=== PATIENT | female | born 1970 | race Two or more races ===

== ENCOUNTER 2020-10-21 12:56 | Outpatient (REF) | payer OTHER, SELFPAY | END 2020-10-21 12:57 | disposition home or self-care (01) | LOC: HO.LAB 12:56 | PROVIDERS: Visit Provider Internal Medicine | DX: Z20.828 Contact with and (suspected) exposure to other viral communicable diseases (principal) | CPT/HCPCS: C9803; U0003 ==

== ENCOUNTER 2021-07-15 12:26 | Outpatient (REF) | payer OTHER, SELFPAY | END 2021-07-15 12:27 | disposition home or self-care (01) | LOC: HO.LAB 12:26 | PROVIDERS: Visit Provider Internal Medicine | DX: Z20.822 Contact with and (suspected) exposure to COVID-19 (principal) | CPT/HCPCS: C9803; U0003; U0005 ==

== ENCOUNTER 2021-11-17 15:04 | Outpatient (REF) | payer OTHER, SELFPAY ==
--- NOTE | ~2021-11-17 | MM_ITS ---
EXAMINATION: MM SCREENING DIGITAL BREAST TOMOSYNTHESIS, BILATERAL CLINICAL INFORMATION: Screening. Asymptomatic. The lifetime risk of breast cancer based on the Tyrer-Cuzick Model is 6%. COMPARISON: Mammography: 08/24/2017, 12/29/2016, 10/07/2015 TECHNIQUE: Digital breast tomosynthesis is performed in both the craniocaudal and mediolateral oblique views along with computer-aided detection (CAD). Synthesized 2D images are generated from the tomosynthesis. FINDINGS: There are scattered areas of fibroglandular density (ACR BI-RADS breast composition Category b). There are no significant masses, abnormal calcifications, or other abnormalities. Without developing density. No architectural abnormality. The axilla and skin contours are unremarkable. MM/MM tomosynthesis screening BI IMPRESSION: No mammographic evidence of malignancy. ASSESSMENT: BI-RADS 1: Negative RECOMMENDATION: Routine annual mammography screening. This patient's information was entered into a reminder system with a target due date for their next mammogram.
== END 2021-11-17 15:05 | disposition home or self-care (01) ==
LOC: HO.MAMMO 15:04
PROVIDERS: Visit Provider Nurse Practitioner Family
DX: Z12.31 Encounter for screening mammogram for malignant neoplasm of breast (principal)
CPT/HCPCS: 77063; 77067

== ENCOUNTER 2021-12-22 11:16 | Outpatient (REF) | payer OTHER, SELFPAY ==
[2021-12-22 11:30] LABS: MANUAL DIFF FLAG NO
[2021-12-22 11:43] LABS: Basophils Percent Auto 0.4 % (0-2); Eosinophils Absolute Auto 0.3 X10*3/uL (0.0-0.4); Eosinophils Percent Auto 2.7 % (0-4); Hematocrit 36.6 % (37.0-47.0); Hemoglobin 11.8 g/dl (12.0-16.0); Imm Gran Abs Auto 0.03 X10*3/uL (0.00-0.03); Imm Gran Pct Auto 0.3 % (0.0-0.4); Lymphocytes Absolute Auto 2.8 X10*3/uL (1.2-4.9); Lymphocytes Percent Auto 30.2 % (20-40); Mean Corpuscular HGB Conc 32.2 g/dl (31.0-35.0); Mean Corpuscular Hemoglobin 27.7 pg (27.0-33.0); Mean Corpuscular Volume 85.9 fL (80.0-98.0); Monocytes Absolute Auto 0.9 X10*3/uL (0.1-1.2); Monocytes Percent Auto 9.3 % (2-11); Neutrophils Absolute Auto 5.3 x10*3/uL (2.0-8.3); Neutrophils Percent Auto 57.1 % (45-73); Platelet Count 258 X10*3/uL (160-400); Red Blood Count 4.26 X10*6/uL (4.20-5.50); Red Cell Distribution Width 13.6 % (11.0-16.0); White Blood Count 9.3 X10*3/uL (4.8-10.8)
[2021-12-22 12:21] LABS: Alanine Aminotransferase 12 U/L (0-31); Albumin Level 3.9 g/dL (3.5-5.0); Alkaline Phosphatase 59 U/L (39-117); Anion Gap 10 (12-20); Aspartate Amino Transferase 13 U/L (5-31); Bilirubin Total 0.7 mg/dL (0.0-1.0); Blood Urea Nitrogen 10 mg/dL (9-16); Carbon Dioxide 27 mmol/L (22-29); Chloride 105 mmol/L (96-108); Cholesterol 216 mg/dL; Estimated Glomerular Filt Rate > 60; Glucose Fasting 104 mg/dL (60-99); HDL Cholesterol 37 mg/dL; LDL Cholesterol Calculated 149 mg/dl; Potassium 4.4 mmol/L (3.3-5.1); Sodium 138 mmol/L (135-145); Total Protein 6.8 g/dL (6.5-8.0); Triglycerides 153 mg/dL
[2021-12-22 12:30] LABS: TSH reflex Free T4 1.65 uIU/mL (0.32-4.0)
== END 2021-12-22 11:17 | disposition home or self-care (01) ==
LOC: HO.LAB 11:16
PROVIDERS: PCP Nurse Practitioner Family; Visit Provider Nurse Practitioner Family
DX: I10 Essential (primary) hypertension (principal); E78.00 Pure hypercholesterolemia, unspecified; Z76.89 Persons encountering health services in other specified circumstances
CPT/HCPCS: 36415; 80053; 80061; 84443; 85025

== ENCOUNTER 2022-02-10 08:45 | Outpatient (REF) | payer OTHER, SELFPAY ==
--- NOTE | 2022-02-10 08:49 | EMG_ITS ---
Bilateral median and ulnar motor and sensory studies were performed. Bilateral radial sensory studies were performed and paraspinal muscles were tested. IMPRESSION: Mild to moderate bilateral median neuropathy across carpal tunnel. MD FELICE Nguyen/VANDANA / [id number]
== END 2022-02-10 08:46 | disposition home or self-care (01) ==
LOC: HO.NEURO 08:45
PROVIDERS: Visit Provider Nurse Practitioner Family
DX: M79.641 Pain in right hand (principal); M79.642 Pain in left hand; M79.89 Other specified soft tissue disorders
CPT/HCPCS: 95886; 95911

== ENCOUNTER 2022-03-17 13:46 | Outpatient (REF) | payer OTHER, SELFPAY ==
[2022-03-18 06:47] LABS: CT PCR NOT DETECTED (Not Detect.); NG PCR NOT DETECTED (Not Detect.)
[2022-03-21 11:16] LABS: HPV mRNA E6/E7 rflx Not Detected (Not Detected)
== END 2022-03-17 13:47 | disposition home or self-care (01) ==
LOC: HO.LAB 13:46
PROVIDERS: Visit Provider Advanced Practice Midwife
DX: Z01.419 Encounter for gynecological examination (general) (routine) without abnormal findings (principal); Z11.51 Encounter for screening for human papillomavirus (HPV); Z20.2 Contact with and (suspected) exposure to infections with a predominantly sexual mode of transmission
CPT/HCPCS: 87491; 87591; 87624; 88142

== ENCOUNTER 2022-05-06 11:07 | Day surgery (SDC) | payer OTHER, SELFPAY ==
--- NOTE | 2022-05-05 12:04 | HO.ANESPROP2 ---
Documented by User: Tamera Geller NP 05/05/22 12:06 HPI - Anesthesia Eval Consult details Narrative: 51yo F for Colonoscopy PMFSH Active Problems Active Problems: All Active Problems (Updated 03/17/22 @ 14:18 by Feliciano Clement) Encounter for annual routine gynecological examination (Acute) Neuropathy, median nerve (Acute) External hemorrhoids (Acute) Bilateral hand pain (Acute) Bilateral hand swelling (Acute) Cervical cancer screening (Acute) Encounter for screening colonoscopy (Acute) Encounter to establish care (Acute) Family History Family History Paternal Grandmother Esophageal cancer Surgical History Surgical History Hx of section Hx of tubal ligation Social History Social History Housing: House Patient Tobacco Use Status: Former Tobacco user Tobacco use type: Cigarette e-Cigarette/Vaping Use: Never Used Second Hand Smoke Exposure: No Are you DNR?: No Advance Directives: No Advance Directives Information Provided: Yes Nutrition Risks: No Nutritional Risk service: No Current occupational status: employed Meds Allergies Allergy/AdvReac Type Severity Reaction Status Date / Time No Known Allergies Allergy Verified 03/17/22 13:56 Home Medications Medication Instructions Recorded Confirmed Last Taken Type No Known Home Meds 11/04/21 11/04/21 Unknown History Exam Exam Date and Time: May 05, 2022 1204 Pertinent Lab Results Pertinent Lab Results: Laboratory Tests 12/22/21 12/22/21 11:28 11:28 WBC 9.3 Hgb 11.8 L Hct 36.6 L Plt Count 258 Sodium 138 Potassium 4.4 Chloride 105 Carbon Dioxide 27 BUN 10 Creatinine 0.71 Assessment and Plan Assessment Anesthesia Assessment: Chart Reviewed Documented by User: Sarbjit Brody MD 05/06/22 11:46 PMFSH Family History Family History Paternal Grandmother Esophageal cancer Family history of problems with anesthesia: No Surgical History Surgical History Hx of section Hx of tubal ligation History of Problems with Anesthesia: No Social History Social History Housing: House Patient Tobacco Use Status: Former Tobacco user Tobacco use type: Cigarette e-Cigarette/Vaping Use: Never Used Second Hand Smoke Exposure: No Are you DNR?: No Advance Directives: No Advance Directives Information Provided: Yes Nutrition Risks: No Nutritional Risk service: No Current occupational status: employed Meds Allergies Allergy/AdvReac Type Severity Reaction Status Date / Time No Known Allergies Allergy Verified 03/17/22 13:56 Home Medications Medication Instructions Recorded Confirmed Last Taken Type No Known Home Meds 11/04/21 11/04/21 Unknown History Exam Airway Mallampati Class: II TM Dist: >3cm Neck ROM: Full Assessment and Plan Assessment Anesthesia Assessment: Anesthesia Plan Discussed Final Anesthetic Review Family History of Problems with Anesthesia: No History of Problems with Anesthesia: No NPO: Yes ASA Class: II Final Preanesthetic Review: No Changes in Pt Med Stat, Meds/Allgs Chart Reviewed, Consent Obtained/Reviewed and Anes Risks/Benef Reviewed Patient Risk: Low Procedure Risk: Low Anesthetic Plan Anesthetic Plan: MAC: Disposition: Standard PACU
[2022-05-06 11:19] VITALS: BP 155/92; PULSE 110; RESP 19; TEMP 36.3; O2SAT 98
[2022-05-06] MEDS: Lactated Ringers 1,000 ML 100 ML IVCONT (11:44)
--- NOTE | 2022-05-06 12:55 | MHC.SHP ---
Pre-Procedural Eval Section A Date of Service: 05/06/22 The patient is an INPATIENT: No Changes since office visit: No Cold of Flu in the past 2 weeks, No New Medical Problems, No Changes in Medication and No Patient answered all questions The History & Physical has been completed within 30 days and I have reviewed it.: Yes Section B Chief Complaint: Hemorrhage of anus and rectum Allergies: Allergies Allergy/AdvReac Type Severity Reaction Status Date / Time No Known Allergies Allergy Verified 03/17/22 13:56 Plan I have reviewed the history and physical and performed a pertinent physical examination on my patient. No changes have occurred unless specified.
[2022-05-06 13:20] VITALS: BP 107/71; PULSE 89; RESP 16; TEMP 36.6; O2SAT 99
[2022-05-06 13:35] VITALS: BP 128/83; PULSE 86; RESP 18; TEMP 36.7; O2SAT 99
--- NOTE | 2022-05-07 01:00 | OP_ITS ---
SURGEON: Mynor Farias MD INDICATIONS: Rectal bleeding. PREOPERATIVE DIAGNOSIS: POSTOPERATIVE DIAGNOSIS: PROCEDURE PERFORMED: Colonoscopy to the terminal ileum. ESTIMATED BLOOD LOSS: COMPLICATIONS: ANESTHESIA: ASSISTANTS: SPECIMENS: MEDICATIONS: Monitored anesthesia care. DESCRIPTION OF PROCEDURE: History and physical performed. The risks and benefits of the procedure were explained to the patient. Informed consent was obtained. The patient was placed in the left lateral decubitus position. A digital rectal exam was performed and was found to be normal. The Olympus pediatric video colonoscope was introduced into the rectum and advanced to the cecum without difficulty. The cecum was identified by transillumination, palpation, and identification of ileocecal valve. Examination was performed. The scope was removed. She tolerated the procedure well and was taken to recovery in stable condition. FINDINGS: The terminal ileum was examined and appeared normal. The visualized colonic mucosa was normal. The quality of the prep was good. No polyps were identified. There was no evidence of colitis or diverticular disease. Retroflexed examination showed some small internal hemorrhoids, moderately large external hemorrhoids were noted on withdrawal of the colonoscope. IMPRESSION: Normal colonoscopy. RECOMMENDATIONS: 1. Follow up as needed. 2. Repeat colonoscopy is recommended in 10 years for average risk individuals. MD CHARLOTTE Jordan/VANDANA / [id number]
== END 2022-05-06 13:44 | disposition home or self-care (01) ==
PROVIDERS: Visit Provider Internal Medicine Gastroenterology
PROC: 0DJD8ZZ Inspection of Lower Intestinal Tract, Via Natural or Artificial Opening Endoscopic (ICD-10-PCS; CPT 45378; principal; 2022-05-06 12:20)
DX: K62.5 Hemorrhage of anus and rectum (principal); K64.8 Other hemorrhoids; K64.4 Residual hemorrhoidal skin tags; Z80.0 Family history of malignant neoplasm of digestive organs; Z98.51 Tubal ligation status; Z87.891 Personal history of nicotine dependence
CPT/HCPCS: 45378

== ENCOUNTER 2022-05-18 10:22 | Outpatient (REF) | payer OTHER, SELFPAY ==
--- NOTE | ~2022-05-18 | XR_ITS ---
EXAMINATION: XR lumbar spine 2-3V CLINICAL INFORMATION: Reason for Exam M54.50 - Low back pain, unspecified COMPARISON: Lumbar spine radiographs 07/26/2018 TECHNIQUE: 3 views of the lumbar spine FINDINGS: 5 nonrib-bearing lumbar-type vertebral bodies. Vertebral body heights are maintained. Alignment is maintained. Mild multilevel degenerative disc disease with minimal loss of disc space height, degenerative endplate spurring and L5-S1 facet arthropathy similar to prior. Paravertebral soft tissues are unremarkable. XR/XR lumbar spine 2-3V IMPRESSION: * Mild spondylosis of the lumbar spine, as above detailed.
--- NOTE | ~2022-05-18 | XR_ITS ---
EXAMINATION: XR KNEE, RIGHT CLINICAL INFORMATION: Pain COMPARISON: None TECHNIQUE: Four views of the right knee. FINDINGS: No acute fracture or dislocation. Mild degenerative changes of the knee with quadriceps and Achilles tendon enthesopathy, spurring of the tibial spines and small patellofemoral osteophytes. Soft tissues are unremarkable. No joint effusion. XR/XR knee RT 3V IMPRESSION: Mild degenerative changes of the knee.
== END 2022-05-18 10:23 | disposition home or self-care (01) ==
LOC: HO.XRAY 10:22
PROVIDERS: Visit Provider Nurse Practitioner Family
DX: M25.561 Pain in right knee (principal); M54.50 Low back pain, unspecified
CPT/HCPCS: 72100; 73562

== ENCOUNTER 2022-06-09 07:50 | Outpatient (RCR) | payer OTHER, SELFPAY ==
--- NOTE | 2022-06-09 14:55 | MHC.PT.EP ---
[facility] [place] [facility] [place] [facility] [place] Office [address] [phone] F: [phone] F: [phone] F: [phone] F: [phone] Physical Therapy Plan of Care Date of Evaluation: Date of Surgery: NA Diagnosis: LOW BACK PAIN (KP) Assessment: ROSE IS A PLEASANT 51 YO FEMALE WHO PRESENTS WITH INTERMITTENT EPISODIC LOW BACK PAIN. UPON EXAM IMPAIRMENTS INCLUDE DECREASED LE STRENTGTH, DECREASED HIP MOBILITY, ALTERED POSTURE AND POSTITIONING, DECREASED TRUNK AND PELVIC MOBILITY WITH GAIT, INCREASED PAIN. FUNCTIONAL LIMITATIONS INCLUDE DECREASED ABILITY TO PERFORM WORK TASKS AND SLEF CARE TASKS, DECREAED ABILITY TO PERFORM HOMEMAKING TASKS. SHE REPORTS DECREASED PARTICIPATION IN COMMUNITY ACTIVITY AND DISRUPTED SLEEP. Frequency and Duration: The patient will be seen 1 X WEEK FOR 4 WEEKS Short Term Goals: INITIATE HEP AND EDUC IN APPROPRIATE BODY MECHANICS FOR PATIENT TRANSFERS AND LIFTING Care Home Goals: INDEPENDENT HEP TO PERFORM APPROPRIATE BODY MECHANICS WITH SIMULATED PATIENT TRANSFERS AND FLOOR TO WAIST LIFTING UP Treatment Plan: Modalities to reduce pain, spasms and effusion. Manual therapy to restore motion and function. Therapeutic exercise to improve strength and flexibility. Neuromuscular re-education for posture and balance. Therapeutic activities to return to functional activities of daily living. Electronically signed by: GULSHAN WOODY PT, DPT Please sign and return to therapist. Thank you for your referral.
== END 2022-07-01 15:24 | disposition home or self-care (01) ==
LOC: HO.PT 07:50
PROVIDERS: PCP Nurse Practitioner Family; Visit Provider Nurse Practitioner Family
DX: M54.50 Low back pain, unspecified (principal); M25.561 Pain in right knee
CPT/HCPCS: 97110; 97161

== ENCOUNTER → 2022-07-14 12:38 | Outpatient (BNVA) | payer OTHER, SELFPAY | PROVIDERS: PCP Nurse Practitioner Family; Visit Provider Dietitian, Registered | DX: E66.9 Obesity, unspecified (principal); Z68.38 Body mass index [BMI] 38.0-38.9, adult | CPT/HCPCS: 97802 ==

== ENCOUNTER 2022-11-23 15:03 | Outpatient (REF) | payer OTHER, SELFPAY ==
--- NOTE | ~2022-11-23 | MM_ITS ---
EXAMINATION: MM SCREENING DIGITAL BREAST TOMOSYNTHESIS, BILATERAL CLINICAL INFORMATION: Screening. Asymptomatic. The lifetime risk of breast cancer based on the Tyrer-Cuzick Model is 6%. COMPARISON: Mammography: 11/17/2021, 08/24/2017, 12/29/2016 TECHNIQUE: Digital breast tomosynthesis is performed in both the craniocaudal and mediolateral oblique views along with computer-aided detection (CAD). Synthesized 2D images are generated from the tomosynthesis. FINDINGS: There are scattered areas of fibroglandular density (ACR BI-RADS breast composition Category b). There are no significant masses, abnormal calcifications, or other abnormalities. Breast tissue composition borders on predominantly fatty. No developing density or architectural abnormality. The axilla and skin contours are unremarkable. MM/MM tomosynthesis screening BI IMPRESSION: No mammographic evidence of malignancy. ASSESSMENT: BI-RADS 1: Negative RECOMMENDATION: Routine annual mammography screening. This patient's information was entered into a reminder system with a target due date for their next mammogram.
== END 2022-11-23 15:04 | disposition home or self-care (01) ==
LOC: HO.MAMMO 15:03
PROVIDERS: PCP Nurse Practitioner Family; Visit Provider Nurse Practitioner Family
DX: Z12.31 Encounter for screening mammogram for malignant neoplasm of breast (principal)
CPT/HCPCS: 77063; 77067

== ENCOUNTER 2023-01-12 10:54 | Outpatient (REF) | payer OTHER, SELFPAY ==
--- NOTE | ~2023-01-12 | XR_ITS ---
EXAMINATION: XR SHOULDER, RIGHT CLINICAL INFORMATION: Right shoulder pain COMPARISON: None available. TECHNIQUE: Four views of the right shoulder. FINDINGS: Glenohumeral alignment is anatomic. No acute fracture is seen. The acromioclavicular joint is intact with moderate degenerative change. XR/XR shoulder RT min 2V IMPRESSION: No acute findings. Moderate degenerative change of the acromioclavicular joint.
--- NOTE | 2023-01-12 11:02 | ECG_ITS ---
Test Reason : palpitations Blood Pressure : / mmHG Vent. Rate : 074 BPM Atrial Rate : 074 BPM P-R Int : 184 ms QRS Dur : 086 ms QT Int : 384 ms P-R-T Axes : 043 -27 010 degrees QTc Int : 426 ms Normal sinus rhythm Normal ECG When compared with ECG of 04-MAY-2020 11:40, No significant change was found Referred By: Isabella Hall Electronically Signed By:Tha Herndon
[2023-01-12 11:18] LABS: MANUAL DIFF FLAG NO
[2023-01-12 12:15] LABS: Basophils Absolute Auto 0.1 X10*3/uL (0.0-0.2); Basophils Percent Auto 0.6 % (0-2); Eosinophils Absolute Auto 0.2 X10*3/uL (0.0-0.4); Eosinophils Percent Auto 1.8 % (0-4); Hematocrit 38.7 % (37.0-47.0); Hemoglobin 12.7 g/dl (12.0-16.0); Imm Gran Abs Auto 0.02 X10*3/uL (0.00-0.03); Imm Gran Pct Auto 0.2 % (0.0-0.4); Lymphocytes Absolute Auto 2.7 X10*3/uL (1.2-4.9); Lymphocytes Percent Auto 33.2 % (20-40); Mean Corpuscular HGB Conc 32.8 g/dl (31.0-35.0); Mean Corpuscular Hemoglobin 28.2 pg (27.0-33.0); Mean Corpuscular Volume 85.8 fL (80.0-98.0); Mean Platelet Volume 11.7 fL (9.4-12.3); Monocytes Absolute Auto 0.8 X10*3/uL (0.1-1.2); Monocytes Percent Auto 9.2 % (2-11); Neutrophils Absolute Auto 4.5 x10*3/uL (2.0-8.3); Platelet Count 226 X10*3/uL (160-400); Red Blood Count 4.51 X10*6/uL (4.20-5.50); Red Cell Distribution Width 13.6 % (11.0-16.0); White Blood Count 8.2 X10*3/uL (4.8-10.8)
[2023-01-12 12:52] LABS: Alanine Aminotransferase 15 U/L (0-31); Albumin Level 4.1 g/dL (3.5-5.0); Alkaline Phosphatase 63 U/L (39-117); Anion Gap 11 (12-20); Aspartate Amino Transferase 17 U/L (5-31); Bilirubin Total 0.5 mg/dL (0.0-1.0); Blood Urea Nitrogen 12 mg/dL (9-16); Calcium 8.7 mg/dL (8.4-10.2); Carbon Dioxide 25 mmol/L (22-29); Chloride 107 mmol/L (96-108); Cholesterol 238 mg/dL; Estimated Glomerular Filt Rate > 60; Glucose Fasting 96 mg/dL (60-99); HDL Cholesterol 44 mg/dL; LDL Cholesterol Calculated 173 mg/dl; Potassium 4.3 mmol/L (3.3-5.1); Sodium 139 mmol/L (135-145); Total Protein 6.9 g/dL (6.5-8.0); Triglycerides 108 mg/dL
[2023-01-12 13:24] LABS: Folate 15.5 ng/mL (> or = 4.0); TSH reflex Free T4 2.85 uIU/mL (0.32-4.0); Vitamin B12 404 pg/mL (200-900); Vitamin D 25-OH Total 14.9 ng/mL (>30)
== END 2023-01-12 10:55 | disposition home or self-care (01) ==
LOC: HO.LAB 10:54
PROVIDERS: PCP Nurse Practitioner Family; Visit Provider Nurse Practitioner Family
DX: Z00.00 Encounter for general adult medical examination without abnormal findings (principal); R00.2 Palpitations; M25.511 Pain in right shoulder
CPT/HCPCS: 36415; 73030; 80053; 80061; 82306; 82607; 82746; 84443; 85025; 93005

== ENCOUNTER 2023-09-04 14:52 | Outpatient (AMB) | payer OTHER, SELFPAY ==
--- NOTE | 2023-09-04 14:55 | MHC.PC.OV ---
Vital Signs 09/04/23 14:57 Height 5 ft 2 in Weight 194 lb 6 oz BMI 35.5 BP 122/68 Blood Pressure Location Rt brachial Position Sitting Pulse 92 Pulse Source Pulse Oximeter Pulse Oximetry (%) 98 Oxygen Delivery Method Room Air Intake Visit Reasons: Swapna/Terry/08/03 Intake Note: Patient is here to follow-up after a visit the emergency department at [facility] on 08/03/23 Digital Art Director Required: Yes Digital Art Director Language: Singaporean Diesel Engineer: Not Required per policy Accompanied by: Self / Same As Patient Allergies No Known Allergies Allergy (Verified 09/04/23 15:08) Medication List - Last Reconciled 09/04/23 by Darius Rodriguez PA-C cholecalciferol (vitamin D3) 50 mcg PO DAILY ibuprofen 600 mg PO TID PRN Tobacco use date assessed: 09/04/23 Dental Screening Dental Screen Date: 09/04/23 Did you have a dental visit in the last 12 months?: Yes Did you have a dental problem in the last 6 months where you did not have access to dental care?: No Was dental information given to patient?: Patient has dentist HPI [facility]/Terry/08/03 HPI Details Patient is a 52-year-old Singaporean-speaking female here today for an ER visit follow-up. She reports she was having chest pain and was evaluated at the ER with blood work and an EKG and reports all were negative. She attributes these symptoms to her anxiety to which she is seeing a mental health therapist for. She was told to follow-up with her PCP about medication for her anxiety. She has tried hydroxyzine in the past which has not been effective for her. She still battles with anxiety. [facility] Medical History (Updated 09/04/23 @ 15:13 by Darius Rodriguez PA-C) Encounter to establish care Surgical History History of colonoscopy Hx of section Hx of tubal ligation Family History Paternal Grandmother Esophageal cancer Social History Housing: House Alcohol intake: never Patient Tobacco Use Status: Former Tobacco user Tobacco use type: Cigarette e-Cigarette/Vaping Use: Never Used Second Hand Smoke Exposure: No service: No Current occupational status: employed Cognitive needs: No Hearing needs: No Vision needs: No Questionnaire Thrive Questionnaire Date Thrive assessed: 11/18/22 CLAIRE-7 AMB Questionnaire CLAIRE-7 Date CLAIRE - 7 assessed: 09/04/23 Feeling nervous, anxious, or on edge: 3 = Nearly every day Not being able to stop or control worryin = Several days Worrying too much about different things: 1 = Several days Trouble relaxin = More than half the days Being so restless that it is hard to sit still: 0 = Not at all Becoming easily annoyed or irritable: 2 = More than half the days Feeling afraid as if something awful might happen: 1 = Several days Total CLAIRE-7 score (0-4 normal; 5-9 mild; 10-14 moderate; 15-21 severe): 10 Source: Developed by Drs. Enzo Seay, Yadira Vargas, Hakeem Tinajero and colleagues, with an educational christine from [employer]. CLAIRE-7 Assessment Billing CLAIRE-7 Assessment Tool: CLAIRE-7 Assessment 36523 Review of Systems Const Denies headache(s) Eyes Denies loss of vision ENT Denies vertigo, Denies dizziness, Denies headache(s) and Denies sore throat Card Denies chest pain, Denies leg edema and Denies lightheadedness Resp Denies cough, Denies hemoptysis and Denies wheezing GI Denies abdominal pain, Denies melena, Denies constipation, Denies diarrhea and Denies vomiting Denies urinary frequency, Denies dysuria and Denies urinary urgency Musc Denies arthralgias, Denies joint swelling, Denies numbness and Denies tingling Neuro Denies Abnormal speech present, Denies behavioral changes, Denies vertigo, Denies dizziness, Denies headache(s), Denies loss of vision, Denies memory loss, Denies numbness and Denies tingling Psych Denies anxiety, Denies behavioral changes, Denies depression, Denies memory loss and Denies panic attacks Ayaz/Lymph Denies easy bleeding and Denies easy bruising Aller/Immun Denies wheezing Physical exam (Primary Care) Vital Signs: Last Vital Signs Pulse 92 09/04/23 14:57 BP 122/68 09/04/23 14:57 Pulse Ox 98 09/04/23 14:57 Oxygen Delivery Method Room Air 09/04/23 14:57 BMI result Body Mass Index 35.5 Tobacco/Smoking Status: Tobacco use Status Tobacco use date assessed 09/04/23 09/04/23 15:03 Patient Tobacco Use Status Former Tobacco user 09/04/23 15:03 Tobacco use type Cigarette 09/04/23 15:03 e-Cigarette/Vaping Use Never Used 09/04/23 15:03 Thrive Assessment: Date of Thrive Assessment Date Thrive assessed 11/18/22 09/04/23 15:03 Const General: healthy appearing, no acute distress, alert and awake Nutritional Appearance: well nourished Orientation/consciousness: oriented to person, oriented to place and oriented to time HENMT Ears: TM's normal bilaterally General nose exam: Normal nasal mucous membranes and turbinates present Eyes Conjunctivae: conjunctivae normal Sclerae: sclerae normal Pupils: Equal, round and reactive pupils present Neck Neck: Yes no lymphadenopathy and Yes no JVD Thyroid: Thyroid normal Carotids: no bruits Resp Effort & Inspection: normal respiratory effort and not tachypneic Auscultation: no crackles, no rales, no rhonchi and no wheezes Cardio Rate: regular rate Rhythm: regular rhythm Heart sounds: no murmurs and normal S1 and S2 GI Palpation (GI): Soft to palpation, nontender, no hepatomegaly and no splenomegaly Auscultation: normal bowel sounds Skin General skin exam: no rashes or lesions noted and dry skin Neuro General: oriented to person, oriented to place and oriented to time Cranial nerves: Yes Equal, round and reactive pupils present Speech: No Abnormal speech present Gait exam (Neuro): Normal gait present Motor exam (neuro): no tremor noted Extrem Right upper extremity: full ROM Left upper extremity: full ROM Right lower extremity: full ROM; no edema Left lower extremity: full ROM; no edema Psych Mental Status: mental status grossly normal Speech and movement: Normal speech and movement present Affect: normal affect Attitude: cooperative Thought process: Normal thought process present Assessment and Plan Assessment & Plan (1) CLAIRE (generalized anxiety disorder): Code(s): F41.1 - Generalized anxiety disorder Plan: Patient's CLAIRE-7 score positive for moderate anxiety which has been existing condition for her. She is speaking with mental health therapist though is on a waiting list to see a psychiatrist. She was told by mental therapist to follow-up with her PCP to perhaps start medication. She is willing to stay as needed medication for anxiety. Willing to try clonidine 0.1 mg p.r.n. Medications: New clonidine HCl 0.1 mg PO BID 14 days 28 tabs 0RF anxiety F41.1 - Generalized anxiety disorder Coding Level of Care Code Est Pt Level 3 (83814) Diagnoses CLAIRE (generalized anxiety disorder) F41.1 Additional Codes CLAIRE-7 Assessment Billing - CLAIRE-7 Assessment Tool: CLAIRE-7 Assessment 03798 ([id number])
[2023-09-04 14:57] VITALS: BP 122/68; PULSE 92; O2SAT 98; BMI 35.5
== END 2023-09-04 16:07 | disposition home or self-care (01) ==
PROVIDERS: PCP Nurse Practitioner Family; Visit Provider Physician Assistant
DX: F41.1 Generalized anxiety disorder (principal)
CPT/HCPCS: 96127; 99213

== ENCOUNTER 2023-11-29 14:51 | Outpatient (REF) | payer OTHER, SELFPAY ==
--- NOTE | ~2023-11-29 | MM_ITS ---
EXAMINATION: MM SCREENING DIGITAL BREAST TOMOSYNTHESIS, BILATERAL CLINICAL INFORMATION: Screening. Asymptomatic. COMPARISON: Mammography: This study is compared with prior exams dating back to 2017. TECHNIQUE: Digital breast tomosynthesis is performed in both the craniocaudal and mediolateral oblique views along with computer-aided detection (CAD). Synthesized 2D images are generated from the tomosynthesis. FINDINGS: The breasts are almost entirely fatty (ACR BI-RADS breast composition Category a). There are no significant masses, abnormal calcifications, or other abnormalities. MM/MM tomosynthesis screening BI IMPRESSION: No mammographic evidence of malignancy. ASSESSMENT: BI-RADS BI-RADS 1 - Negative RECOMMENDATION: Routine annual mammography screening. 1 year F/U This examination should not preclude the clinical evaluation of a suspicious palpable abnormality. This patient's information was entered into a reminder system with a target due date for their next mammogram.
== END 2023-11-29 14:52 | disposition home or self-care (01) ==
LOC: HO.MAMMO 14:51
PROVIDERS: Visit Provider Nurse Practitioner Family
DX: Z12.31 Encounter for screening mammogram for malignant neoplasm of breast (principal)
CPT/HCPCS: 77063; 77067

== ENCOUNTER → 2023-11-29 15:30 | Outpatient (BNV) | payer OTHER, SELFPAY | PROVIDERS: Visit Provider Radiology Diagnostic Radiology | DX: Z12.31 Encounter for screening mammogram for malignant neoplasm of breast (principal) | CPT/HCPCS: 77063; 77067 ==

== ENCOUNTER 2024-04-24 07:41 | Outpatient (AMB) | payer OTHER, SELFPAY ==
--- NOTE | 2024-04-24 07:45 | A.OFFPC_ITS ---
Vital Signs 04/24/24 08:05 Height 5 ft 0.04 in Weight 180 lb 2 oz BMI 35.1 BP 124/88 Blood Pressure Location Lt brachial Position Sitting Respiration 14 Pulse 85 Pulse Source Pulse Oximeter Temp 98.3 F Temp Source Oral Pulse Oximetry (%) 95 Oxygen Delivery Method Room Air Intake Visit Reasons: Transfer of Care Dr. Hall ( [facility] ) Intake Note: New patient visit Quality Assurance Tech Required: Yes Quality Assurance Tech Language: Supervisor Ski Production Name: Bryn Allergies No Known Allergies Allergy (Verified 04/24/24 08:17) Medication List - Last Reconciled 04/24/24 by Shelbi Jarquin, EPIC SPECIALIST- clonidine HCl 0.1 mg PO BID 14 days ibuprofen 600 mg PO TID PRN multivitamin 1 tab PO DAILY Tobacco use date assessed: 09/04/23 Dental Screening Dental Screen Date: 04/24/24 Did you have a dental visit in the last 12 months?: Yes Did you have a dental problem in the last 6 months where you did not have access to dental care?: No Was dental information given to patient?: Patient has dentist HPI HPI Comments History of Present Illness Details 53-year-old Upper Sorbian-speaking female with generalized anxiety disorder, hyperlipidemia, vitamin-D deficiency, obesity, median nerve neuropathy, venous insufficiency, perimenopause, IFG Status post , tubal ligation Health Maintenance: ? Colon 05/06/[address] Farias normal repeat 10 years ? Mammo 11/29/2023 ? DEXA not yet in menopause, last menses March 2024 ? PAP 03/18/2022 ? Tdap 11/18/2022 Specialists: epidemiologist GI Nutrition Counseling Neuro * no longer following with. Quality Assurance Tech via video Bryn [id number] Here today to est care & for CPE: c/o pain generalized & CTS on bilat, was evaled by Julia in the past fell out of care d/t insurance, today requesting bone doctor would like to see hand specialists for eval and tx Worries about her circulation in BLE- reports having surgery on veins in the past however they cont to have pain and discoloration around ankles/feet done in [place] many years ago Counseling for CLAIRE remains active w/ counselor, next appt today. Has been on wait list for Psychiatry. Using clonidine QD with + effect. Refill sent today. Perimenopause - having hot flashes which is effecting her sleep. Discussed meds today. However, does not like to take meds, so will hold off @ this time. LUQ pain comes and goes - not present today. No other assoc sx. Eye annual exams, next appt in a few months. Sister has bladder cancer, wonders if she needs to be screened. Labs from today 04/24/2024 show a normal CMP with the exception of mild elevation and fasting glucose of 106, hemoglobin A1c is 5.6%, vitamin-D is normal, TSH is normal, urine microalbumin creatinine ratio was normal total cholesterol is elevated at 211, LDL 148, HDL 42, triglycerides 108 Plan: CLAIRE - cont w counseling and clonidiine - refill sent today Venous insuff: US + referral to vascular Refer to Hand specialist Declined meds for perimenopause Start statin and repeat labs in 6 months for HLD Obesity w/ comorbid IFG and HLD - life style mods and repeat labs in 6 months. Edu about bladder cancer. advised if her sisters MD recommend testing/screening for her i would be happy to do that if she can provide me the info. Vit D normal w/o extra supplement except MVI - cont MVI RTO in 6 months for fu lipids, CLAIRE, IFG fasting labs 1 week before, sooner as needed. [facility] Medical History (Updated 04/25/24 @ 07:38 by ROMEO Dobbs-CHARLOTTE) Obesity (BMI 35.0-39.9 without comorbidity) External hemorrhoids Lower back pain Anxiety Intermittent palpitations Encounter to establish care Surgical History History of colonoscopy Hx of section Hx of tubal ligation Family History Paternal Grandmother Esophageal cancer Son FH: mental illness Substance use disorder Social History Housing: House Alcohol intake: never Patient Tobacco Use Status: Former Tobacco user Tobacco use type: Cigarette Years Smoked: Infrequent e-Cigarette/Vaping Use: Never Used Second Hand Smoke Exposure: No service: No 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 1. Little interest or pleasure in doing things: not at all 2. Feeling down, depressed, or hopeless: not at all 3. Trouble falling or staying asleep, or sleeping too much: not at all 4. Feeling tired or having little energy: not at all 5. Poor appetite or overeating: not at all 6. Feeling bad about yourself - or that you are a failure or have let yourself or your family down: not at all 7. Trouble concentrating on things, such as reading the newspaper or watching television: not at all 8. Moving or speaking so slowly that other people could have noticed. Or the opposite - being so fidgety or restless that you have been moving around a lot more than usual: not at all 9. Thoughts that you would be better off or of hurting yourself in some way: not at all Total score: 0 Depression Screening Interpretation: Negative Depression Screening Done: Yes 30065 - PHQ-9 Billing: Yes Source: Developed by Drs. Enzo Seay, Yadira Vargas, Hakeem Tinajero and colleagues, with an educational christine from [email or web address]. Thrive Questionnaire Date Thrive assessed: 04/24/24 I am a: Patient What is your living situation today?: I have a steady place to live Within the past 12 months, did the food you bought not last and you didn't have the money to get more?: Never true Within the past 12 months, did you worry whether your food would run out before you got money to buy more?: Never true Do you have trouble paying for medicines?: No Do you have trouble getting transportation to medical appointments?: No Do you have trouble paying your heating and electricity bill?: No Do you have trouble taking care of your child, family member or friend?: No Do you have trouble with day-to-day activities such as bathing, preparing meals, shopping, managing finances, etc.?: No Are you currently unemployed and looking for a job?: No Are you interested in more education?: No Please select the resources that you would like help with: None Currently or been in a relationship where the following occur: no concerns reported THRIVE Score: 0 AUDIT C Alcohol Use Questionnaire (AUDIT-C) 1. How often do you have a drink containing alcohol?: Never 3. How often do you have six or more drinks on one occasion?: Never Total Score: 0 Score Reviewed/Action Taken: Yes CLAIRE-7 AMB Questionnaire CLAIRE-7 Date CLAIRE - 7 assessed: 04/24/24 Feeling nervous, anxious, or on edge: 0 = Not at all Not being able to stop or control worryin = Not at all Worrying too much about different things: 0 = Not at all Trouble relaxin = Not at all Being so restless that it is hard to sit still: 0 = Not at all Becoming easily annoyed or irritable: 0 = Not at all Source: Developed by Drs. Enzo Seay, Yadira Vargas, Hakeem Tinajero and colleagues, with an educational christine from [email or web address]. CLAIRE-7 Assessment Billing CLAIRE-7 Assessment Tool: CLAIRE-7 Assessment 83333 Review of Systems Const Details: Constitutional: Denies fever. Skin: Denies rash. Eye: Denies eye pain. ENMT: Denies sore throat and nasal congestion. Respiratory: Denies shortness of breath and cough. Gastrointestinal: Denies nausea, vomiting or abdominal pain. Cardiovascular: Denies chest pain and syncope. Genitourinary: Denies dysuria. Musculoskeletal: Denies back pain Neurologic: Denies headaches, confusion, and weakness. Psychiatric: Denies suicidal thoughts and substance abuse. Allergy/ Immunologic: Denies impaired immunity. Physical exam (Primary Care) Vital Signs: Last Vital Signs Temp 98.3 F 04/24/24 08:05 Pulse 85 04/24/24 08:05 Resp 14 04/24/24 08:05 BP 124/88 04/24/24 08:05 Pulse Ox 95 04/24/24 08:05 Oxygen Delivery Method Room Air 04/24/24 08:05 BMI result Body Mass Index 35.1 BMI Assessment/Plan discussion: High BMI High, discussed plan: lifestyle Tobacco/Smoking Status: Tobacco use Status Tobacco use date assessed 09/04/23 04/24/24 07:45 Patient Tobacco Use Status Former Tobacco user 04/24/24 08:07 Tobacco use type Cigarette 04/24/24 08:07 e-Cigarette/Vaping Use Never Used 04/24/24 08:07 PHQ-9: PHQ-9 Score PHQ-9: Total score 0 04/24/24 08:44 Depression Screening Interpretation: Negative Thrive Assessment: Date of Thrive Assessment Date Thrive assessed 04/24/24 04/24/24 08:32 Currently or been in a relationship where the following occur: no concerns reported Const Other: General: Well developed, well nourished, in no acute distress. Appears stated age. Head: Normocephalic, atraumatic. Eyes: Pupils are equal, round and reactive to light and accommodation. Conjunctivae are clear. Vision grossly normal. Ears: TMs clear AU, EACS WNL Nose: Patent, without discharge. Mouth: There are no ulcers or lesions noted. No inflammation, no post nasal drip, no plaques nor exudates. Neck: Supple, no adenopathy or thyromegaly. Lungs: Clear to auscultation bilaterally. No rales, rhonchi or wheeze noted. Good air flow in all frank. Heart: Regular rate and rhythm. No murmurs, click, rubs or gallops are noted. Abdomen: Bowel sounds present in all quadrants. The abdomen is soft, nontender, with no masses or organomegaly noted. No hernias are noted. Musculoskeletal: Joints are nontender, without swelling, redness, or effusions. Range of motion is observed to be normal. Pulses: Peripheral pulses are equal and palpable bilaterally. Extremities: No clubbing, cyanosis is noted. Positive varicosities bilat with trace edema Neurologic: Gait and station normal. Cranial Nerves 2-12 intact. Motor strength grossly symmetrical and intact. No sensory loss. Balance normal. Skin: No rashes, ulcers, or lesions noted. Turgor is good. Skin color is good. Hair and nails are without abnormalities. Psych: Normal eye contact, affect and mood appropriate, and normal interactions. Patient is alert and appropriate to context. Assessment and Plan Assessment & Plan (1) Encounter for general adult medical examination with abnormal findings: Code(s): Z00.01 - Encounter for general adult medical examination with abnormal findings (2) Neuropathy, median nerve: Code(s): G56.10 - Other lesions of median nerve, unspecified upper limb Qualifiers: Laterality: right Qualified Code(s): G56.11 - Other lesions of median nerve, right upper limb (3) Arthralgia of hands, bilateral: Code(s): M25.541 - Pain in joints of right hand; M25.542 - Pain in joints of left hand (4) Varicose veins of both legs with edema: Code(s): I83.893 - Varicose veins of bilateral lower extremities with other complications (5) Low vitamin D level: Code(s): R79.89 - Other specified abnormal findings of blood chemistry (6) Hyperlipidemia: Code(s): E78.5 - Hyperlipidemia, unspecified Qualifiers: Hyperlipidemia type: mixed hyperlipidemia Qualified Code(s): E78.2 - Mixed hyperlipidemia (7) IFG (impaired fasting glucose): Code(s): R73.01 - Impaired fasting glucose (8) Obesity with serious comorbidity: Comment: 35.1 Code(s): E66.9 - Obesity, unspecified Qualifiers: Obesity type: due to excess calories Obesity classification: adult class 2 (BMI 35 - 39.9) Body mass index: BMI 35.0-35.9 Qualified Code(s): E66.01 - Morbid (severe) obesity due to excess calories; Z68.35 - Body mass index [BMI] 35.0-35.9, adult (9) CLAIRE (generalized anxiety disorder): Code(s): F41.1 - Generalized anxiety disorder (10) Perimenopause: Code(s): N95.1 - Menopausal and female climacteric states (11) Family history of bladder cancer: Comment: Sister Code(s): Z80.52 - Family history of malignant neoplasm of bladder Plan: An additional 20 was spent addressing the problem(s) noted at todays visit. This includes time spent before the visit reviewing the chart, time spent during the visit, and time spent after the visit on documentation Orders: Orders TSH reflex Free T4 04/24/24 E66.9 - Obesity, unspecified, E78.5 - Hyperlipidemia, unspecified, R79.89 - Other specified abnormal findings of blood chemistry, Z00.00 - Encounter for general adult medical examination without abnormal findings Comprehensive [place]. Panel Fast 09/29/24 E78.5 - Hyperlipidemia, unspecified, R73.01 - Impaired fasting glucose US venous duplex LE BI 04/24/24 G56.10 - Other lesions of median nerve, unspecified upper limb, I83.893 - Varicose veins of bilateral lower extremities with other complications, M25.541 - Pain in joints of right hand, M25.542 - Pain in joints of left hand Comprehensive [place]. Panel Fast 04/24/24 E66.9 - Obesity, unspecified, E78.5 - Hyperlipidemia, unspecified, R79.89 - Other specified abnormal findings of blood chemistry, Z00.00 - Encounter for general adult medical examination without abnormal findings Hemoglobin A1c 04/24/24 E66.9 - Obesity, unspecified, E78.5 - Hyperlipidemia, unspecified, R79.89 - Other specified abnormal findings of blood chemistry, Z00.00 - Encounter for general adult medical examination without abnormal findings Lipid Panel 04/24/24 E66.9 - Obesity, unspecified, E78.5 - Hyperlipidemia, unspecified, R79.89 - Other specified abnormal findings of blood chemistry, Z00.00 - Encounter for general adult medical examination without abnormal findings Microalbumin, Random (w Creat) 04/24/24 E66.9 - Obesity, unspecified, E78.5 - Hyperlipidemia, unspecified, R79.89 - Other specified abnormal findings of blood chemistry, Z00.00 - Encounter for general adult medical examination without abnormal findings Vitamin D 25-OH Total 04/24/24 E66.9 - Obesity, unspecified, E78.5 - Hyperlipidemia, unspecified, R79.89 - Other specified abnormal findings of blood chemistry, Z00.00 - Encounter for general adult medical examination without abnormal findings Lipid Panel 09/29/24 E78.5 - Hyperlipidemia, unspecified, R73.01 - Impaired fasting glucose Referrals Hand Surgery Referral G56.10 - Other lesions of median nerve, unspecified upper limb, M25.541 - Pain in joints of right hand, M25.542 - Pain in joints of left hand Vascular Surgery Referral G56.10 - Other lesions of median nerve, unspecified upper limb, I83.893 - Varicose veins of bilateral lower extremities with other complications, M25.541 - Pain in joints of right hand, M25.542 - Pain in joints of left hand Medications: New atorvastatin 20 mg PO BEDTIME 90 tabs 1RF Changed From clonidine HCl 0.1 mg PO BID 14 days 28 tabs 0RF anxiety F41.1 - Generalized anxiety disorder To clonidine HCl 0.1 mg PO ONCE 90 days 90 tabs 0RF F41.1 - Generalized anxiety disorder Patient Instructions: Plan: CLAIRE - cont w counseling and clonidiine - refill sent today Venous insuff: US + referral to vascular Refer to Hand specialist Declined meds for perimenopause Start statin and repeat labs in 6 months for HLD Obesity w/ comorbid IFG and HLD - life style mods and repeat labs in 6 months. Edu about bladder cancer. advised if her sisters recommend testing/screening for her i would be happy to do that if she can provide me the info. Vit D normal w/o extra supplement except MVI - cont MVI RTO in 6 months for fu lipids, CLAIRE, IFG fasting labs 1 week before, sooner as needed. Walk-In Care (Urgent Care): We Make it Easy Walk-in for urgent medical issues such as: ? Seasonal Allergies ? Insect Bites ? Cough ? Diarrhea ? Acute Asthma Attacks ? Back, Knee or Joint Pain ? Ear Infection ? Fever without a Rash ? Headaches ? Nausea ? [place] [facility], Rash or Skin Irritation ? Sore Throat ? Sports Physicals ? Vomiting Most insurances are accepted. Patients do not need to be part of the [facility] to seek care at the walk-in clinic. Locations [facility] , [place] [address] ? [phone] [facility]-In Care in [place] provides services to ages 18 and over. Open Monday-Monday: 8 a.m. to 5 p.m. and Monday: 9 a.m. to 3 p.m.* *Hours may vary due to staffing availability. To confirm Walk-In Care hours in [place], please call [phone]. [address] [place] [address] ? [phone] [facility] in [place] provides services to ages 12 and over. Open Monday-Monday: 8 a.m. to 5 p.m. Hours may vary due to staffing availability. To confirm Walk-In Care hours in [place], please call [phone]. LABORATORY SERVICES: [facility] Lab ? Primary Location [address] [place] [address] Monday through Monday 6:00 AM ? 5:00 PM Monday 7:00 AM ? 11:00 AM* [phone] The [facility] Lab is centrally located near the front entrance of the [facility] for easy outpatient access. Convenient parking is provided for outpatients. *Hours may vary due to staffing availability. To confirm Laboratory hours for any location, please call [phone]. Offsite Location For your convenience, we offer offsite laboratory draw stations at the following locations: [address] [place] [address] ? [facility] [address] [facility], [address], [place] Monday through Monday 7:30 AM ? 1:00 PM* [phone] *Hours may vary due to staffing availability. To confirm Laboratory hours for any location, please call [phone]. [place] ? [address] Monday through Monday 6:00 AM ? 3:30 PM* Monday 6:30 AM ? 3 PM* [phone] *Hours may vary due to staffing availability. To confirm Laboratory hours for any location, please call [phone] [place] [address] Monday through Monday 7:30 AM ? 4:00 PM* [phone] *Hours may vary due to staffing availability. To confirm Laboratory hours for any location, please call [phone] [place] [address] Monday through 9:00 AM ? 4:00 PM* *Hours may vary due to staffing availability. To confirm Laboratory hours for any location, please call [phone]. Appointments are not necessary. Walk-ins are welcome. Like all the departments throughout the [facility], our Lab undergoes frequent reviews to ensure the quality and accuracy of test results, and our staff takes special pride in its status as a nationally accredited facility. Patient Portal: ONE PATIENT. ONE RECORD. BETTER CARE. [facility] has a fully integrated, cutting- edge mobile electronic health information system that has revolutionized the way we care for our patients and manage our organization. This system improves communication and coordination enabling us to provide safe, higher-quality care, and an overall positive experience for staff and patients. Our first priority, as always, is to deliver the highest quality care possible. The system is running in the background supporting that priority. This portal is for all [facility] services and practices. If you are experiencing any technical difficulties with enrolling or logging into the Patient Portal please complete the [facility] Patient Portal Technical Support Form. [facility] now offers a new secure on-line interactive tool for patients to review their health information ? ?Patient Portal. This interactive web portal will enable patients and their families to take an active role in their care by providing easy, secure access to their health information via the internet. The Patient Portal provides patients with instant access to their health information, including laboratory results, medications, allergies, demographic information, visit history, and more. In addition to managing their own care, parents and health care proxies with authorized consent will appreciate the ability to access the records of those individuals for whom they provide care. Please note: if you wish to gain access (Proxy) to another patient?s portal, you will be required to come to the Medical Records Department in person at [facility]. Both the patient giving proxy access and the proxy will need to provide photo identification and complete the appropriate authorization. The Patient Portal also allows track their appointments online. The [facility] Patient Portal also saves patients time by allowing them to submit upda arian to their demographic and contact information prior to their visits. Portal email notifications will also alert patients to any new activity on their portal, such as test results and new appointments. In order to initially enroll in the [facility] Patient Portal, you will need to enter some required information including the following: * your [facility] Medical Record number * your personal home email address * name * date of Please note: In order to enroll in the [facility] Patient Portal, we need to have your email address on file in your electronic medical record. ?The email address needs to be specific for one person (yourself) in order for your Portal enrollment to be successful. ?You can update your email address in person with our Registration staff when you are registering for a hospital visit. ?Otherwise, you will need to come to the Health Information Management (Medical Records) Department at [facility]. ?We are open from Monday ? Monday from 7:30 a.m. ? 4:30 p.m. ?You will be required to present a photo id. Once you have successfully enrolled in the Patient Portal, you will receive a one-time user id and password for the Portal, sent to your email address. ?This will allow you to log into the Patient Portal within 99 hrs and reset your own logon id and password, and define personal security questions. ?Once your permanent login and password have been set, you can log into the [facility] Patient Portal at any time via the blue button above or from the Portal Logon button on any page of the [facility] website. [facility] encourage all of our patients to enroll in Patient Portal as it presents a valuable opportunity for patients and their families to actively participate in their care and stay healthy Welcome to [facility]. ?We look forward to working with you. Health screenings for women You should visit your health care provider from time to time, even if you are healthy. The purpose of these visits is to: Screen for medical issues Assess your risk for future medical problems Encourage a healthy lifestyle Update vaccinations and other preventive care services Help you get to know your provider in case of an illness Information Even if you feel fine, you should still see your provider for regular checkups. These visits can help you avoid problems in the future. For example, the only way to find out if you have high blood pressure is to have it checked regularly. High blood sugar and high cholesterol levels also may not have any symptoms in the early stages. A simple blood test can check for these conditions. There are specific times when you should see your provider or receive specific health screenings. The [place] Preventive Services Task Force publishes a list of recommended screenings. Below are screening guidelines for women ages 18 to 39. BLOOD PRESSURE SCREENING Your blood pressure should be checked at least once every 3 to 5 years if: Your blood pressure is in the normal range (top number less than 120 mm Hg and bottom number less than 80 mm Hg) You don't have risk factors for high blood pressure Ask your provider if you need your blood pressure checked more often if: The top number is 120 to 129 mm Hg or the bottom number is 70 to 79 mm Hg You have diabetes, heart disease, kidney problems, are overweight, or have certain other health conditions You have a first-degree relative with high blood pressure You are Black You had high blood pressure during a If the top number is 130 mm Hg or greater or the bottom number is 80 mm Hg or greater, this is considered stage 1 hypertension. Schedule an appointment with your provider to learn how you can reduce your blood pressure. Watch for blood pressure screenings in your area. Ask your provider if you can stop in to have your blood pressure checked. BREAST CANCER SCREENING Experts do not agree about the benefits of breast self-exams in finding breast cancer or saving lives. Talk to your provider about what is best for you. A screening mammogram is not recommended for most women under age 40. Your provider may discuss and recommend mammograms, MRI scans, or ultrasounds if you have an increased risk for breast cancer, such as: A mother or sister who had breast cancer at a young age (most often starting screening earlier than the age the close relative was diagnosed) You carry a high-risk genetic marker CERVICAL CANCER SCREENING Cervical cancer screening should start at age 21 years unless your provider advises otherwise. After the first test: Women ages 21 through 29 should have a Pap test every 3 years. Exoprts do not agree on whether HPV testing is recommended for this age group. Women ages 30 through 65 should be screened with either a Pap test every 3 years or the HPV test every 5 years or both tests every 5 years (called cotesting ). Women who have been treated for precancer (cervical dysplasia) should continue to have Pap tests for 20 years after treatment or until age 65, whichever is longer. If you have had your uterus and cervix removed (total hysterectomy), and you have not been diagnosed with cervical cancer or precancer (high grade cervical neoplasia), you do not need cervical cancer screening. CHOLESTEROL SCREENING Cholesterol screening should begin at: Age 45 for women with no known risk factors for coronary heart disease Age 20 for women with known risk factors for coronary heart disease Repeat cholesterol screening should take place: Every 5 years for women with normal cholesterol levels More often if changes occur in lifestyle (including weight gain and diet) More often if you have diabetes, heart disease, kidney problems, or certain other conditions DIABETES SCREENING You should be screened for diabetes starting at age 35 and then repeated every 3 years if you have no risk factors for diabetes. Screening may need to start earlier and be repeated more often if you have other risk factors for diabetes, such as: You have a first degree relative with diabetes. You are overweight or have obesity. You have high blood pressure, prediabetes, or a history of heart disease. Screening for diabetes should be done if you are planning to become and you are overweight and have other risk factors such as high blood pressure. DENTAL EXAM Go to the dentist once or twice every year for an exam and cleaning. Your dentist will evaluate if you need more frequent visits. EYE EXAM Have an eye exam every 5 to 10 years before age 40. If you have vision problems, have an eye exam every 2 years or more often if recommended by your provider. You should have an eye exam that includes an examination of your retina (back of your eye) at least every year if you have diabetes. IMMUNIZATIONS Commonly needed vaccines include: Flu shot: get one every year. COVID-19 vaccine: ask your provider what is best for you. Tetanus-diphtheria and acellular pertussis (Tdap) vaccine: have one at or after age 19 as one of your tetanus-diphtheria vaccines if you did not receive it as an adolescent. Tetanus-diphtheria: have a booster (or Tdap) every 10 years. Varicella vaccine: receive 2 doses if you never had chickenpox or the varicella vaccine. Hepatitis B vaccine: receive 2, 3, or 4 doses, depending on your exact circumstances. Measles, mumps, and rubella (MMR) vaccine: receive 1 to 2 doses if you are not already immune to MMR. Your provider can tell you if you are immune. Ask your provider about the human papillomavirus (HPV) vaccine if: You have not received the HPV vaccine in the past You have not completed the full vaccine series (you should catch up on this shot) Ask your provider if you should receive other immunizations if you have certain health problems that increase your risk for some diseases such as pneumonia. INFECTIOUS DISEASE SCREENING Women who are sexually active should be screened for chlamydia and gonorrhea up until age 25. Women 25 years and older should be screened for chlamydia and gonorrhea if at high risk. Screening for hepatitis C: All adults ages 18 to 79 should get a one-time test for hepatitis C. people should be screened at every . Screening for human immunodeficiency virus (HIV): All people ages 15 to 65 should get a one-time test for HIV. Depending on your lifestyle and medical history, you may also need to be screened for infections such as syphilis and HIV, as well as other infections. PHYSICAL EXAM All adults should visit their provider from time to time, even if they are healthy. The purpose of these visits is to: Screen for disease Assess your risk of future medical problems Encourage a healthy lifestyle Update your vaccinations and other preventive care services Maintain a relationship with a provider in case of an illness Your height, weight, and BMI should be checked at every exam. During your exam, your provider may ask you about: Depression and anxiety Diet and exercise Alcohol and tobacco use Safety issues, such as using seat belts, smoke detectors, and intimate partner violence Your medicines and risk for interactions SKIN SELF-EXAM Your provider may check your skin for signs of skin cancer, especially if you're at high risk, such as if you: Have had skin cancer before Have close relatives with skin cancer Have a weakened immune system OTHER SCREENING Talk with your provider about colon cancer screening if you have a strong family history of colon cancer or polyps, or if you have had inflammatory bowel disease or polyps yourself. Routine bone density screening of women under 40 is not recommended. 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 Laterality: right Arthralgia of hands, bilateral M25.541; M25.542 Varicose veins of both legs with edema I83.893 Low vitamin D level R79.89 Mixed hyperlipidemia E78.2 Hyperlipidemia type: mixed hyperlipidemia IFG (impaired fasting glucose) R73.01 Class 2 severe obesity due to excess calories with serious comorbidity and body mass index (BMI) of 35.0 to 35.9 in adult E66.01; Z68.35 Obesity type: due to excess calories Obesity classification: adult class 2 (BMI 35 - 39.9) Body mass index: BMI 35.0-35.9 CLAIRE (generalized anxiety disorder) F41.1 Perimenopause N95.1 Family history of bladder cancer Z80.52 Additional Codes CLAIRE-7 Assessment Billing - CLAIRE-7 Assessment Tool: CLAIRE-7 Assessment [id number] ([id number])
[2024-04-24 08:05] VITALS: BP 124/88; PULSE 85; RESP 14; TEMP 36.8; O2SAT 95; BMI 35.1
== END 2024-04-24 11:32 | disposition home or self-care (01) ==
PROVIDERS: Visit Provider Nurse Practitioner Family
DX: Z00.01 Encounter for general adult medical examination with abnormal findings (principal); G56.11 Other lesions of median nerve, right upper limb; E66.01 Morbid (severe) obesity due to excess calories; Z68.35 Body mass index [BMI] 35.0-35.9, adult; M25.541 Pain in joints of right hand; M25.542 Pain in joints of left hand; I83.893 Varicose veins of bilateral lower extremities with other complications; R79.89 Other specified abnormal findings of blood chemistry; E78.2 Mixed hyperlipidemia; R73.01 Impaired fasting glucose; F41.1 Generalized anxiety disorder; N95.1 Menopausal and female climacteric states
CPT/HCPCS: 99213; 99396

== ENCOUNTER 2024-04-24 08:45 | Outpatient (REF) | payer OTHER, SELFPAY ==
[2024-04-24 11:41] LABS: Estimated Average Glucose 114 mg/dL; Hemoglobin A1c % 5.6 % (<6.0)
[2024-04-24 11:50] LABS: Creatinine Urine 103.78 mg/dL; Microalbum/Creatinine Ratio Ur 4.8 ug/mg cr (<30)
[2024-04-24 12:01] LABS: Alanine Aminotransferase 17 U/L (0-31); Albumin Level 4.1 g/dL (3.5-5.0); Alkaline Phosphatase 57 U/L (39-117); Anion Gap 12 (12-20); Aspartate Amino Transferase 17 U/L (5-31); Bilirubin Total 0.5 mg/dL (0.0-1.0); Blood Urea Nitrogen 12 mg/dL (9-16); Calcium 9.3 mg/dL (8.4-10.2); Carbon Dioxide 25 mmol/L (22-29); Chloride 106 mmol/L (96-108); Cholesterol 211 mg/dL (<200); Estimated Glomerular Filt Rate > 60; Glucose Fasting 106 mg/dL (60-99); HDL Cholesterol 42 mg/dL (>40); LDL Cholesterol Calculated 148 mg/dL (<100); Potassium 3.9 mmol/L (3.3-5.1); Sodium 139 mmol/L (135-145); TSH reflex Free T4 3.29 uIU/mL (0.32-4.0); Total Protein 7.2 g/dL (6.5-8.0); Triglycerides 108 mg/dL (<150); Vitamin D 25-OH Total 49.2 ng/mL (>30)
== END 2024-04-24 08:46 | disposition home or self-care (01) ==
LOC: HO.WFDLDS 08:45
PROVIDERS: Visit Provider Nurse Practitioner Family
DX: Z00.00 Encounter for general adult medical examination without abnormal findings (principal); E78.5 Hyperlipidemia, unspecified; R79.89 Other specified abnormal findings of blood chemistry; E66.9 Obesity, unspecified
CPT/HCPCS: 36415; 80053; 80061; 82043; 82306; 82570; 83036; 84443

== ENCOUNTER 2024-05-07 08:12 | Outpatient (REF) | payer OTHER, SELFPAY ==
--- NOTE | ~2024-05-07 | US_ITS ---
EXAMINATION: US LOWER EXTREMITY VENOUS (REFLUX EXAM), BILATERAL CLINICAL INDICATION: Varicose veins of bilateral lower extremities COMPARISON: None. TECHNIQUE: Color flow triplex imaging and compression Doppler was performed to evaluate both the deep and the superficial systems bilaterally. To evaluate the superficial system, the examination was performed in the upright position. Color-flow Doppler ultrasound and compression ultrasound were utilized. In addition, maneuvers were utilized to demonstrate reflux. FINDINGS: RIGHT: 1. DEEP VENOUS ULTRASOUND OF THE RIGHT LOWER EXTREMITY: Common Femoral Vein: Compressible, normal respiratory variation and augmented flow. Popliteal Vein: Compressible, normal augmentation. Deep Venous Reflux: There is no evidence of reflux in the deep system in either the common femoral vein or the popliteal vein. There is no evidence of a Pereyra's cyst. 2. SUPERFICIAL ULTRASOUND WITH DOPPLER OF RIGHT LOWER EXTREMITY: RIGHT GREAT SAPHENOUS VEIN: Saphenofemoral Junction: 5 mm. No reflux. Proximal Thigh: 3 mm. No reflux. Mid Thigh: 1 mm. No reflux. Above Knee: 3 mm. No reflux. Below Knee: 3 mm. No reflux. Mid Calf: 1 mm. No reflux. Ankle: 2 mm. No reflux. DUPLICATED GREAT SAPHENOUS VEIN: Laterally: Saphenofemoral junction: 4 mm. No reflux Mid thigh: 2 mm. No reflux RIGHT SMALL SAPHENOUS VEIN: Proximal: 5 mm. No reflux. Distal: 2 mm. No reflux. PERFORATORS: Distal small saphenous vein: 3 mm. No reflux Distal thigh: 2 mm. No reflux Mid calf: 2 mm. No reflux. LEFT: 1. DEEP VENOUS ULTRASOUND OF THE LEFT LOWER EXTREMITY: Common Femoral Vein: Compressible, normal respiratory variation and augmented flow. Popliteal Vein: Compressible, normal augmentation. Deep Venous Reflux: There is no evidence of reflux in the deep system in either the common femoral vein or the popliteal vein. There is no evidence of a Pereyra's cyst. 2. SUPERFICIAL ULTRASOUND WITH DOPPLER OF LEFT LOWER EXTREMITY: LEFT GREAT SAPHENOUS VEIN: Saphenofemoral Junction: 6 mm. No reflux. Proximal Thigh: 4 mm. No reflux. Mid Thigh: 2 mm. No reflux. Above Knee: 2 mm. 8943-4537 ms reflux. Below Knee: Not visualized. Mid Calf: Not visualized Ankle: Not visualized DUPLICATED GREAT SAPHENOUS VEIN: Laterally: Saphenofemoral junction: 4 mm. No reflux Mid thigh: 3 mm. No reflux LEFT SMALL SAPHENOUS VEIN: Proximal: 1 mm. No reflux. Distal: 2 mm. No reflux. PERFORATORS: Mid small saphenous vein: 1 mm. No reflux. Approximately 50 cm from heel: 2 mm. 2612 ms reflux. Varicose veins: Proximal thigh: 3 mm. No reflux. US/US venous duplex LE BI IMPRESSION: 1. Right small saphenous vein below the knee not visualized ( stripped per patient) 2. Short segment abnormal superficial reflux of the great saphenous vein just above and at the level of the left knee. 3. No abnormal superficial venous reflux of the right lower extremity. 4. No evidence of DVT. Abnormal lower extremity venous reflux times: Superficial and deep calf veins: >500 ms Femoropopliteal veins: >1000 ms Perforating veins: >350 ms Labsd N, Aviva J, Lupe L, Shelby AK, Rubin SS, Ladan King M, Hafsa WH. Definition of venous reflux in lower-extremity veins.J Vasc Surg. 2003; 38:793?798.
== END 2024-05-07 08:13 | disposition home or self-care (01) ==
LOC: HO.US 08:12
PROVIDERS: PCP Nurse Practitioner Family; Visit Provider Nurse Practitioner Family
DX: I83.893 Varicose veins of bilateral lower extremities with other complications (principal); G56.10 Other lesions of median nerve, unspecified upper limb; M25.541 Pain in joints of right hand; M25.542 Pain in joints of left hand
CPT/HCPCS: 93970

== ENCOUNTER 2024-05-10 09:21 | Outpatient (REF) | payer OTHER, SELFPAY ==
--- NOTE | ~2024-05-10 | XR_ITS ---
EXAMINATION: XR HAND, RIGHT XR HAND, LEFT CLINICAL INFORMATION: Hand pain. COMPARISON: 09/28/2018 TECHNIQUE: PA, lateral, and oblique views of each hand. FINDINGS: RIGHT HAND: No fracture or malalignment. Mild multifocal osteoarthritis is characterized primarily by small marginal osteophytes with areas of mild joint space narrowing, most notably at the thumb IP joint. Osteoarthritis involves the triscaphe, 1st CMC, MCP, and interphalangeal joints diffusely. No erosions. Bone mineralization is normal. No periostitis or appreciable soft tissue calcifications. LEFT HAND: No fracture or malalignment. Mild multifocal osteoarthritis is characterized primarily by small marginal osteophytes and is most notable at the 1st CMC joint and thumb IP joint, though also evident at multiple MCP and interphalangeal joints. No erosions. Bone mineralization is normal. No soft tissue calcifications or periostitis. 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 No acute osseous findings. No evidence of inflammatory arthropathy.
--- NOTE | ~2024-05-10 | XR_ITS ---
EXAMINATION: XR HAND, RIGHT XR HAND, LEFT CLINICAL INFORMATION: Hand pain. COMPARISON: 09/28/2018 TECHNIQUE: PA, lateral, and oblique views of each hand. FINDINGS: RIGHT HAND: No fracture or malalignment. Mild multifocal osteoarthritis is characterized primarily by small marginal osteophytes with areas of mild joint space narrowing, most notably at the thumb IP joint. Osteoarthritis involves the triscaphe, 1st CMC, MCP, and interphalangeal joints diffusely. No erosions. Bone mineralization is normal. No periostitis or appreciable soft tissue calcifications. LEFT HAND: No fracture or malalignment. Mild multifocal osteoarthritis is characterized primarily by small marginal osteophytes and is most notable at the 1st CMC joint and thumb IP joint, though also evident at multiple MCP and interphalangeal joints. No erosions. Bone mineralization is normal. No soft tissue calcifications or periostitis. 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 No acute osseous findings. No evidence of inflammatory arthropathy.
== END 2024-05-10 09:22 | disposition home or self-care (01) ==
LOC: HO.HOSX 09:21
PROVIDERS: Visit Provider Physical Medicine & Rehabilitation
DX: M79.641 Pain in right hand (principal); M79.642 Pain in left hand; G56.03 Carpal tunnel syndrome, bilateral upper limbs
CPT/HCPCS: 73130; 99202

== ENCOUNTER 2024-05-10 09:21 | Outpatient (AMB) | payer OTHER, SELFPAY ==
--- NOTE | 2024-05-10 09:24 | A.OFFVIS_ITS ---
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 Pt states this started a long time ago. She states it is hard to pickup things. 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 School Child Care Attendant Required: Yes School Child Care Attendant Language: Claim Attorney Name: Paola ([id number]) Allergies No Known Allergies Allergy (Verified 05/10/24 09:24) Medication List - Last Reconciled 05/10/24 by Kim Dhaliwal MD atorvastatin 20 mg PO BEDTIME clonidine HCl 0.1 mg PO .QD 90 days ibuprofen 600 mg PO TID PRN multivitamin 1 tab PO DAILY HPI Comments Details: Pain on wrists and forearms, even elbows, bilateral. She has numbness on all fingers. Points to right CMC as being painful, thinks maybe joint is sinking down . Denies weakness. No trauma or falls. EMG done 01/2022 bilateral mild-moderate CTS, test done by Dr. Pereira. She had injection more than a year, helped her partially 2-3 months. She has tried the brace but does not tolerate or like them. COUNTS INCLUDE 234 BEDS AT THE [facility] Medical History (Updated 05/10/24 @ 09:48 by Kim Dhaliwal MD) Carpal tunnel syndrome on both sides Obesity (BMI 35.0-39.9 without comorbidity) External hemorrhoids Lower back pain Anxiety Intermittent palpitations Encounter to establish care Surgical History History of colonoscopy Hx of section Hx of tubal ligation Family History Paternal Grandmother Esophageal cancer Son FH: mental illness Substance use disorder Social History Housing: House Alcohol intake: never Patient Tobacco Use Status: Former Tobacco user Tobacco use type: Cigarette Years Smoked: Infrequent e-Cigarette/Vaping Use: Never Used Second Hand Smoke Exposure: No service: No 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 MSK: No joint effusion noted. No deformity noted. No intrinsic hand weakness noted. No atrophy noted. Ryan test negative. Carpal compression test negative. Tinel sign positive on right wrist and right elbow. No joint tenderness. No triggering. Strength is 5/5 in all muscle groups tested. No increased tone noted. Neurological: Neurologic examination of the upper and lower extremities was nonfocal with intact sensation, muscle stretch reflexes and without focal motor deficits . Astudillo?s negative bilaterally. Gait is non-antalgic without loss of balance. Results Reviewed Results Reviewed: I independently reviewed the results of the following: Ordering Physician: Nubia Price AUTOMOTIVE VEHICLE INSPECTOR-C Date of Service: 02/10/22 Procedure(s): NE electromyogram (EMG); NE nerve conduction velocity Accession Number(s): [id number]; [id number] cc: Nubia Price AUTOMOTIVE VEHICLE INSPECTOR-C~ Bilateral median and ulnar motor and sensory studies were performed. Bilateral radial sensory studies were performed and paraspinal muscles were tested. IMPRESSION: Mild to moderate bilateral median neuropathy across carpal tunnel. Christin Pereira MD I reviewed records from the following: PCP Assessment & Plan Assessment & Plan (1) Bilateral hand pain: Code(s): M79.641 - Pain in right hand; M79.642 - Pain in left hand Category: Medical (2) Carpal tunnel syndrome on both sides: Code(s): G56.03 - Carpal tunnel syndrome, bilateral upper limbs Category: Medical Plan Past history of Carpal Tunnel Syndrome on EMG. Her symptoms and exam to suggest Carpal Tunnel Syndrome. Rule out joint arthritis. She has not yet considered surgery but would depending on the need. We will do hand x-rays today. We will repeat EMG, to be scheduled. Most likely we will refer to hand surgery after EMG. Assessment and plan discussed with patient, and patient was agreeable. All questions were answered thoroughly. Kim Dhaliwal MD, SAMUEL Board Certified, [place] [employer] and Rehabilitation (ABPMR) Board Certified, [place] Board [employer] Electrodiagnostic [employer] (ABEM) Orders: Orders XR hand RT min 3V Today G56.03 - Carpal tunnel syndrome, bilateral upper limbs, M79.641 - Pain in right hand, M79.642 - Pain in left hand, M79.643 - Pain in unspecified hand NE electromyogram (EMG) Today G56.03 - Carpal tunnel syndrome, bilateral upper limbs, M79.641 - Pain in right hand, M79.642 - Pain in left hand XR hand LT min 3V Today G56.03 - Carpal tunnel syndrome, bilateral upper limbs, M79.641 - Pain in right hand, M79.642 - Pain in left hand, M79.643 - Pain in unspecified hand NE nerve conduction velocity Today G56.03 - Carpal tunnel syndrome, bilateral upper limbs, M79.641 - Pain in right hand, M79.642 - Pain in left hand Coding Level of Care Code New Pt Level 4 (83483) Diagnoses Bilateral hand pain M79.641; M79.642 Carpal tunnel syndrome on both sides G56.03
== END 2024-05-10 10:02 | disposition home or self-care (01) ==
PROVIDERS: Visit Provider Physical Medicine & Rehabilitation
DX: M79.641 Pain in right hand (principal); M79.642 Pain in left hand; G56.03 Carpal tunnel syndrome, bilateral upper limbs
CPT/HCPCS: 99204

== ENCOUNTER 2024-05-31 10:09 | Outpatient (REF) | payer OTHER, SELFPAY ==
--- NOTE | 2024-05-31 10:12 | EMG_ITS ---
Chief complaint: EMG [address] Pereira reported bilateral [id number] Carpal Tunnel Syndrome. Patient has pain on hand especially thumb. Reason for referral: Evaluate for Carpal Tunnel Syndrome Procedure done: Bilateral upper extremities NCS/EMG Precautions and/or limitations: None The limb temperature was monitored continuously and remained between 32-36 degrees C during the performance of the NCS. Nerve Conduction Studies Anti Sensory Summary Table ?Stim Site NR Onset (ms) Norm Onset (ms) Peak (ms) Norm Peak (ms) O-P Amp (?V) Norm O-P Amp Site1 Site2 Delta-0 (ms) Dist (cm) Keyur (m/s) Norm Keyur (m/s) Left Median Anti Sensory (2nd Digit) Wrist ? 2.5 3.1 <3.6 54.5 >10 Wrist 2nd Digit 2.5 14.0 56 Right Median Anti Sensory (2nd Digit) Wrist ? 2.6 3.2 <3.6 49.8 >10 Wrist 2nd Digit 2.6 14.0 54 Left Ulnar Anti Sensory (5th Digit) Wrist ? 1.7 2.8 <3.7 16.0 >15.0 Wrist 5th Digit 1.7 14.0 82 Right Ulnar Anti Sensory (5th Digit) Wrist ? 2.3 2.8 <3.7 18.3 >15.0 Wrist 5th Digit 2.3 14.0 61 Motor Summary Table ?Stim Site NR Onset (ms) Norm Onset (ms) O-P Amp (mV) Norm O-P Amp iAmp (mV) Amp (1st) (%) Site1 Site2 Delta-0 (ms) Dist (cm) Keyur (m/s) Norm Keyur (m/s) Left Median Motor (Abd Poll Brev) Wrist ? 3.6 <3.9 11.0 >4.5 13.6 100.0 Elbow Wrist 3.2 19.0 59 >45 Elbow ? 6.8 10.6 13.1 96.4 Right Median Motor (Abd Poll Brev) Wrist ? 3.9 <3.9 8.2 >4.5 10.1 100.0 Elbow Wrist 3.1 18.0 58 >45 Elbow ? 7.0 8.0 10.1 97.6 Left Ulnar Motor (Abd Dig Minimi) Wrist ? 2.4 <3.0 7.3 >5 9.1 100.0 B Elbow Wrist 2.9 18.0 62 >45 B Elbow ? 5.3 7.1 8.9 97.3 A Elbow B Elbow 1.3 10.0 77 >45 A Elbow ? 6.6 7.0 8.9 95.9 Right Ulnar Motor (Abd Dig Minimi) Wrist ? 2.4 <3.0 8.6 >5 11.5 100.0 B Elbow Wrist 2.8 18.0 64 >45 B Elbow ? 5.2 8.2 11.0 95.3 A Elbow B Elbow 1.2 10.0 83 >45 A Elbow ? 6.4 8.5 11.7 98.8 Comparison Summary Table ?Stim Site NR Peak (ms) Norm Peak (ms) P-T Amp (?V) Site1 Site2 Delta-P (ms) Norm Delta (ms) Left Median/Radial Dig I Comparison (Digit 1 - 10cm) Median ? 2.5 <2.9 79.9 Median Radial 0.5 Radial ? 2.0 <2.8 21.8 Right Median/Radial Dig I Comparison (Digit 1 - 10cm) Median ? 2.9 <2.9 72.4 Median Radial 0.9 Radial ? 2.0 <2.8 27.4 EMG ?Side Muscle Nerve Root Ins Act Fibs Psw Amp Dur Poly Recrt Int Pat Comment Right 1stDorInt Ulnar C8-T1 Nml Nml Nml Nml Nml 0 Nml Complete Right FlexCarRad Median C6-7 Nml Nml Nml Nml Nml 0 Nml Complete Right Biceps Musculocut C5-6 Nml Nml Nml Nml Nml 0 Nml Complete Right Triceps Radial C6-7-8 Nml Nml Nml Nml Nml 0 Nml Complete Right Deltoid Axillary C5-6 Nml Nml Nml Nml Nml 0 Nml Complete Left 1stDorInt Ulnar C8-T1 Nml Nml Nml Nml Nml 0 Nml Complete Left FlexCarRad Median C6-7 Nml Nml Nml Nml Nml 0 Nml Complete Left Biceps Musculocut C5-6 Nml Nml Nml Nml Nml 0 Nml Complete Left Triceps Radial C6-7-8 Nml Nml Nml Nml Nml 0 Nml Complete Left Deltoid Axillary C5-6 Nml Nml Nml Nml Nml 0 Nml Complete FINDINGS: Interlatency difference between right median and sensory nerve was 0.9; left side was 0.5. All other nerves tested were within normal. Concentric needle EMG was performed in selected muscles of the bilateral upper extremities. Study did not reveal signs of electric abnormalities as shown in the table above. IMPRESSION: 1. This is an abnormal study. 2. There is electrodiagnostic evidence for bilateral borderline/mild median neuropathy at the wrist, consistent with carpal tunnel syndrome. 3. There is no electrodiagnostic evidence for ulnar neuropathy, brachial plexopathy, or cervical radiculopathy. CLINICAL COMMENT: Discussed that we would treat Carpal Tunnel Syndrome conservatively. Patient would like to trial injections again. To be scheduled in the physiatry office. X-rays have shown mild DJD especially on 1st digits. Thank you for your kind referral. Kim Dhaliwal MD, SAMUEL Board Certified, [place] [employer] and Rehabilitation (ABPMR) Board Certified, [place] [employer] Electrodiagnostic Medicine (ABEM) CODIN [id number] x 2 MTDD
== END 2024-05-31 10:10 | disposition home or self-care (01) ==
LOC: HO.NEURO 10:09
PROVIDERS: PCP Nurse Practitioner Family; Visit Provider Physical Medicine & Rehabilitation
DX: G56.03 Carpal tunnel syndrome, bilateral upper limbs (principal); M79.641 Pain in right hand; M79.642 Pain in left hand
CPT/HCPCS: 95886; 95911

== ENCOUNTER → 2024-05-31 10:12 | Outpatient (BNV) | payer OTHER, SELFPAY | PROVIDERS: PCP Nurse Practitioner Family; Visit Provider Physical Medicine & Rehabilitation | DX: G56.03 Carpal tunnel syndrome, bilateral upper limbs (principal) | CPT/HCPCS: 95886; 95911 ==

== ENCOUNTER 2024-06-27 10:07 | Outpatient (AMB) | payer OTHER, SELFPAY ==
--- NOTE | 2024-06-27 10:09 | A.OFFVIS_ITS ---
Vital Signs 06/27/24 10:10 Height 5 ft 2 in Weight 180 lb BMI 32.9 BP 112/82 Blood Pressure Location Rt brachial Position Sitting Intake Visit Reasons: [facility]/ [facility] PCP referral for VV Intake Note: Pt presents to the office today for a new patient visit for VV. Allergies No Known Allergies Allergy (Verified 06/27/24 10:11) HPI HPI [facility]/ [facility] PCP referral for VV: Details: Very pleasant 53-year-old female presents for lower extremity pain and discomfort. She reports it is right more so than left. Upon further discussion with her she reports that it is more sore towards the ankles. She reports more pain on ambulation towards the ankles. Patient reports prior bilateral venous procedures done back in 2014 Patient denies any history of DVT/ PE. Patient denies any history of phlebitis. Trial of compression includes - [id number] They now present for vascular evaluation regarding their varicose veins. [facility] Medical History (Updated 06/27/24 @ 11:41 by Moncho Fleming MD) Carpal tunnel syndrome on both sides Obesity (BMI 35.0-39.9 without comorbidity) External hemorrhoids Lower back pain Anxiety Intermittent palpitations Encounter to establish care Surgical History History of colonoscopy Hx of section Hx of tubal ligation Family History Paternal Grandmother Esophageal cancer Son FH: mental illness Substance use disorder Social History Housing: House Alcohol intake: never Patient Tobacco Use Status: Former Tobacco user Tobacco use type: Cigarette Years Smoked: Infrequent e-Cigarette/Vaping Use: Never Used Second Hand Smoke Exposure: No service: No 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) Current occupation: [employer] Current occupational exposures/hazards: No Cognitive needs: No Hearing needs: No Vision needs: Yes (glasses) Review of Systems Const All systems reviewed & are unremarkable except as noted in HPI and below Reports no additional complaints ENT Reports Normal hearing present Card Denies chest pain, Denies chest pain at rest, Denies chest pain with activity and Denies pedal edema Resp Denies cough GI Denies abdominal pain Musc Denies abnormal gait, Denies muscle cramps and Denies radiating pain into limb Skin/Breast Denies skin ulcer and Denies wounds Neuro Reports Normal hearing present and Denies abnormal gait Psych Reports no additional complaints Physical Exam Vital Signs: Last Vital Signs BP 112/82 06/27/24 10:10 BMI result Body Mass Index 32.9 Const General: cooperative, healthy appearing and comfortable Orientation/consciousness: oriented to person, oriented to place and oriented to time HEENT Head: Yes normal to inspection Neck Neck: Yes normal visual inspection Carotids: no bruits Chest Chest palpation & inspection: normal inspection of the chest Resp Effort & Inspection: normal respiratory effort and able to speak in complete sentences Auscultation: clear to auscultation bilaterally, no crackles, no rales, no rhonchi and no wheezes Cardio Rate: regular rate Rhythm: regular rhythm Heart sounds: S1 normal heart sound present and S2 normal heart sound present Bruits: no carotid bruits Peripheral pulses: Peripheral pulses 2+ throughout GI Inspection: Yes normal to inspection Skin Wounds: no wounds Hair: normal Neuro General: oriented to person, oriented to place and oriented to time Cranial nerves: Yes CN's II-XII intact bilaterally and Yes Normal hearing present Cognition (Neuro): normal cognition Motor exam (neuro): 5/5 motor strength present throughout Extrem Other: venous exam: No significant superficial varicosities or spider telangiectasias, minimal edema General: No clubbing, No cyanosis and No edema Psych Appearance: grossly normal Mental Status: mental status grossly normal Speech and movement: Normal speech and movement present Results Reviewed Results Reviewed: Brief summary of venous insufficiency testing is as follows: right great saphenous vein: negative right small saphenous vein: negative right accessory vein: none present left great saphenous vein: Positive at knee area only but is very small in caliber left small saphenous vein: negative left accessory vein: none present Please note there is no evidence of any venous aneurysms or significant tortuosity Assessment & Plan Assessment & Plan (1) Leg pain: Code(s): M79.606 - Pain in leg, unspecified Category: Medical Qualifiers: Laterality: bilateral Qualified Code(s): M79.604 - Pain in right leg; M79.605 - Pain in left leg Plan: In short patient has lower extremity pain it does not appear to be vascular in nature as she has palpable arterial pulses in venous testing is essentially negative. I do feel that it is more musculoskeletal as it does radiate more so from the ankle joint. Should this persist may benefit from an orthopedic evaluation. At the current time we discussed conservative measures including compression elevation and exercise. She will follow up with us on an as-needed basis. Thank you for allowing us to assist in his care. If there are any questions or concerns please do not hesitate to contact us Coding Level of Care Code New Pt Level 4 (17790) Diagnoses Pain in both lower extremities M79.604; M79.605 Laterality: bilateral
[2024-06-27 10:10] VITALS: BP 112/82; BMI 32.9
== END 2024-06-27 10:42 | disposition home or self-care (01) ==
PROVIDERS: Visit Provider Surgery Vascular Surgery
DX: M79.604 Pain in right leg (principal); M79.605 Pain in left leg
CPT/HCPCS: 99203

== ENCOUNTER → 2024-06-27 10:07 | Outpatient (BNVA) | payer OTHER, SELFPAY | PROVIDERS: Visit Provider Surgery Vascular Surgery | DX: M79.604 Pain in right leg (principal); M79.605 Pain in left leg | CPT/HCPCS: 99202 ==

== ENCOUNTER 2024-07-10 10:09 | Outpatient (AMB) | payer OTHER, SELFPAY ==
--- NOTE | 2024-07-10 10:12 | A.OFFVIS_ITS ---
Intake Visit Reasons: Inj-B/L hand CTS injection Intake Note: Brittany is a 53 year old female who presents to the office today for CTS injections. Allergies No Known Allergies Allergy (Verified 07/10/24 10:12) Medication List - Last Reconciled 07/10/24 by Kim Dhaliwal MD atorvastatin 20 mg PO BEDTIME clonidine HCl 0.1 mg PO .QD 90 days ibuprofen 600 mg PO TID PRN multivitamin 1 tab PO DAILY HPI Comments Details: Here for Carpal Tunnel Syndrome injection. Left side today. We will schedule for right side on another time in a few weeks. [facility] Medical History (Updated 07/10/24 @ 10:42 by Kim Dhaliwal MD) Carpal tunnel syndrome on both sides Obesity (BMI 35.0-39.9 without comorbidity) External hemorrhoids Lower back pain Anxiety Intermittent palpitations Encounter to establish care Surgical History History of colonoscopy Hx of section Hx of tubal ligation Family History Paternal Grandmother Esophageal cancer Son FH: mental illness Substance use disorder Social History Housing: House Alcohol intake: never Patient Tobacco Use Status: Former Tobacco user Tobacco use type: Cigarette Years Smoked: Infrequent e-Cigarette/Vaping Use: Never Used Second Hand Smoke Exposure: No service: No 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 IMPRESSION: 1. This is an abnormal study. 2. There is electrodiagnostic evidence for bilateral borderline/mild median neuropathy at the wrist, consistent with carpal tunnel syndrome. 3. There is no electrodiagnostic evidence for ulnar neuropathy, brachial plexopathy, or cervical radiculopathy. CLINICAL COMMENT: Discussed that we would treat Carpal Tunnel Syndrome conservatively. Patient would like to trial injections again. To be scheduled in the physiatry office. X-rays have shown mild DJD especially on 1st digits. Assessment & Plan Assessment & Plan (1) Carpal tunnel syndrome of left wrist: Code(s): G56.02 - Carpal tunnel syndrome, left upper limb Category: Medical Plan Consent obtained. Patient places hand palm up. Left wrist is cleansed with betadine solution. A 27 gauge needle is inserted just ulnar to the palmaris longus tendon and at the proximal wrist crease. The needle is inserted at a 30- degree angle and directed towards the ring finger. A solution containing 20mg Kenalog is injected. Patient tolerated procedure well without complications. Post-injection instructions given. To schedule right side in a few weeks. Assessment and plan discussed with patient, and patient was agreeable. All questions were answered thoroughly. Kim Dhaliwal MD, SAMUEL Board Certified, [place] [employer] and [employer] (ABPMR) Board Certified, [place] [employer] Electro[employer] (ABEM) Orders: Orders Injection-Corticosteroid Today G56.02 - Carpal tunnel syndrome, left upper limb Coding Level of Care Code Procedure Only Diagnoses Carpal tunnel syndrome of left wrist G56.02
== END 2024-07-10 10:47 | disposition home or self-care (01) ==
PROVIDERS: PCP Nurse Practitioner Family; Visit Provider Physical Medicine & Rehabilitation
DX: G56.02 Carpal tunnel syndrome, left upper limb (principal)
CPT/HCPCS: 20526

== ENCOUNTER → 2024-07-10 10:09 | Outpatient (BNVA) | payer OTHER, SELFPAY | PROVIDERS: PCP Nurse Practitioner Family; Visit Provider Physical Medicine & Rehabilitation | DX: G56.02 Carpal tunnel syndrome, left upper limb (principal) | CPT/HCPCS: 20526; J3301 ==

== ENCOUNTER 2024-08-07 09:08 | Outpatient (AMB) | payer OTHER, SELFPAY ==
--- NOTE | 2024-08-07 09:15 | MHC.OFFVIS ---
Intake Visit Reasons: INJ- Right hand CTS injection Intake Note: Brittany is a 53 year old - hand dominant female who presents to the office today for a carpal tunnel injection for her right hand. Last injection was on her left wrist on 07/10/24. She mentions that her last injection didn't give her relief. Allergies No Known Allergies Allergy (Verified 08/07/24 09:16) HPI Comments Details: EMG showed bilateral mild/borderline Carpal Tunnel Syndrome. Trialed left Carpal Tunnel Syndrome injection few weeks ago, unfortunately not much relief. Patient is here to have right-sided injection. [facility] Medical History (Updated 08/07/24 @ 09:32 by Kim Dhaliwal MD) Carpal tunnel syndrome on both sides Obesity (BMI 35.0-39.9 without comorbidity) External hemorrhoids Lower back pain Anxiety Intermittent palpitations Encounter to establish care Surgical History History of colonoscopy Hx of section Hx of tubal ligation Family History Paternal Grandmother Esophageal cancer Son FH: mental illness Substance use disorder Social History Housing: House Alcohol intake: never Patient Tobacco Use Status: Former Tobacco user Tobacco use type: Cigarette Years Smoked: Infrequent e-Cigarette/Vaping Use: Never Used Second Hand Smoke Exposure: No service: No Current occupational status: employed 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 Patient places hand palm up. Right wsrist is cleansed with betadine solution. A 25 gauge needle is inserted just ulnar to the palmaris longus tendon and at the proximal wrist crease. The needle is inserted at a 30-degree angle and directed towards the ring finger. A solution containing 20mg Kenalog is injected. Patient tolerated procedure well without complications. Post-injection instructions given. [id number] Tunnel Injection, therapeutic All charges added?: Procedure code (CPT) selection complete Assessment & Plan Assessment & Plan (1) Carpal tunnel syndrome on both sides: Code(s): G56.03 - Carpal tunnel syndrome, bilateral upper limbs Category: Medical Plan Referring her to OT. To wear wrist braces at night. Tolerated procedure well. Post-injection instructions given. If not improved, we will consider referral to Dr. Tang. Assessment and plan discussed with patient, and patient was agreeable. All questions were answered thoroughly. Follow up in 3 months. Kim Dhaliwal MD, SAMUEL Board Certified, [place] [employer] and [employer] (ABPMR) Board Certified, [place] [employer] (ABEM) Orders: Orders AMB Trigger Point Injection Today G56.01 - Carpal tunnel syndrome, right upper limb OT Evaluation and Treatment Today G56.03 - Carpal tunnel syndrome, bilateral upper limbs Coding Level of Care Code Procedure Only Diagnoses Carpal tunnel syndrome on both sides G56.03 CPT Codes Therapeutic Injection - Ther Injection 3: [id number] Tunnel Injection, therapeutic ([id number])
== END 2024-08-07 09:37 | disposition home or self-care (01) ==
PROVIDERS: PCP Nurse Practitioner Family; Visit Provider Physical Medicine & Rehabilitation
DX: G56.03 Carpal tunnel syndrome, bilateral upper limbs (principal)
CPT/HCPCS: 20526

== ENCOUNTER → 2024-08-07 09:08 | Outpatient (BNVA) | payer OTHER, SELFPAY | PROVIDERS: PCP Nurse Practitioner Family; Visit Provider Physical Medicine & Rehabilitation | DX: G56.03 Carpal tunnel syndrome, bilateral upper limbs (principal) | CPT/HCPCS: 20526; J3301 ==

== ENCOUNTER 2024-08-27 08:30 | Outpatient (RCR) | payer OTHER, SELFPAY ==
--- NOTE | 2024-09-09 16:08 | MHC.OT.EP ---
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 She reports numbness and tingling in her B hands and digits. She reported having injections (most recently in her R wrist) which she does not feel have helped. she is not currently night splinting. She presents today w/ a (+) Phalen's on B sides/wrists. She has full AROM of B wrists and hands; w/ mild thenar wasting on her L side. 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 She would benefit from skilled OT Therapy to decrease sx's of B CT and increase the strength and functional use of her hands Frequency and Duration: The patient will be seen 2xs a week for 4 weeks Short Term Goals: Pt will be complaint w/ nighttime splinting Pt will adhere to HEP Pt will report being complaint w/ modifications (ergonomics) to decrease sx's of CTS. Penitentiary Goals: Pt will report 2/10 pain in L Wrist/ hand Pt will increase R hand dairy equipment repairer to 40lbs Treatment Plan: Therapeutic Exercise Electronically Signed By: Brooke Barrera OTR/L Please Sign and return to therapist. Thank you once again for your referral.
== END 2024-09-18 16:24 | disposition home or self-care (01) ==
LOC: HO.OT 08:30
PROVIDERS: PCP Nurse Practitioner Family; Visit Provider Physical Medicine & Rehabilitation
DX: G56.03 Carpal tunnel syndrome, bilateral upper limbs (principal)
CPT/HCPCS: 97110; 97140; 97165

== ENCOUNTER 2024-09-06 09:37 | Outpatient (AMB) | payer OTHER, SELFPAY ==
--- NOTE | 2024-09-06 09:38 | MHC.PC.OV ---
Vital Signs 09/06/24 09:43 Height 5 ft 2 in Weight 201 lb BMI 36.8 BP 126/80 Blood Pressure Location Lt brachial Position Sitting Respiration 14 Pulse 90 Pulse Source Pulse Oximeter Pulse Oximetry (%) 98 Oxygen Delivery Method Room Air Intake Visit Reasons: Advanced managed weight loss Intake Note: Patient here for weight loss medications. Patient also complaining of right knee pain, and right shoulder pain x 1 year. Sinker Winder Required: No Museum Attendant: Present Allergies No Known Allergies Allergy (Verified 09/06/24 09:57) Medication List - Last Reconciled 09/06/24 by Shelbi Jarquin, WRAPPER HANDS SPRAYER- atorvastatin 20 mg PO BEDTIME bupropion HCl XL 150 mg PO DAILY clonidine HCl 0.1 mg PO .QD 90 days ibuprofen 600 mg PO TID PRN multivitamin 1 tab PO DAILY Tobacco use date assessed: 09/06/24 Dental Screening Dental Screen Date: 04/24/24 HPI HPI Comments History of Present Illness Details 53-year-old Indonesian-speaking female with generalized anxiety disorder, hyperlipidemia, vitamin-D deficiency, obesity, median nerve neuropathy, venous insufficiency, perimenopause, IFG Status post , tubal ligation Health Maintenance: ? Colon 05/06/[address] Farias normal repeat 10 years ? Mammo 11/29/2023 ? DEXA not yet in menopause, last menses March 2024 ? PAP 03/18/2022 ? Tdap 11/18/2022 Specialists: time clock mechanic GI Nutrition Counseling Neuro * no longer following with. Vascular Here today with daughter who helps with language barrier. Offered and declined interpretive services. Would like to discuss GLP 1 to help her lose weight. Has never tried any medications Has exercised in the past. Worked w/ [employer] in the past. Current exercise: jumping and dancing, a few minutes per day. In addition she would like her right shoulder and right knee evaluated. She has popping and cracking and pain in both of these joints. Her knee feels weak as if she was going to fall at times. She denies any overt injury. No at home treatments are remedies trialed. Exam Awake alert oriented, no acute distress Moves all extremities x4. Normal gait. Right arm neurovascularly intact. Shoulder joint without any obvious abnormalities. No warmth, edema or erythema. Has pain with palpation over anterior aspect. Normal strength. Right knee without any obvious deformity, edema, erythema or warmth. Positive crepitus with active and passive range of motion. Normal strength. Neurovascularly intact Plan 15 minutes spent Discussing different forms of medications to help with weight loss. Discouraged the use of GLP-1s due to the need to use lifelong, weight gain after discontinuation, cost and cancer risk. Educated about the use of Wellbutrin which can be used in patients without a seizure history. This medication works by blocking out the reward center related to mindless eating. It also has a mild stimulating effect. The side effect profile includes mild anxiety as well as a slight dizzy sensation. Another medication used is metformin, this is a diabetic medication. This medication has GI side effects. But can be very beneficial in aiding with weight loss in patients without diabetes. Topiramate was also discussed. This is a seizure medication with side effect profile that includes need to monitor LFTs as well as blood counts. One of the side effects is weight loss. Another medication, Phentermine is a stimulant/controlled substance. This is an anorexient that is used short-term medication used. =. Finally the use of a medication called Contrave, which is Wellbutrin + naltrexone can be used. The brand name is usually not cover therefore would have to prescribe the 2 medications individually. This medication works just as the Wellbutrin; naltrexone aides in further blocking of the reward center to aide in wt loss. After discussion of the above, the patient wishes to proceed with Metformin ER She is already on buproprion xl 150mg po Qd. Cont. start Metformin ER 500 mg po QM Ortho referral for evaluation of right knee and right shoulder pain Xray R knee and shoulder Flu admin today RTO Nov with repeat labs for f/u, sooner PRN This note is constructed using voice recognition software. While every effort has been made to ensure accuracy in post doctoral fellow, still errors may have been included Sometimes, these errors may affect the content or meaning of the given sentence . Total time spent caring for the patient today was 40 minutes. This includes time spent before the visit reviewing the chart, time spent during the visit, and time spent after the visit on documentation [facility] Medical History (Updated 09/07/24 @ 13:15 by Shelbi Jarquin, WRAPPER HANDS SPRAYER-) Carpal tunnel syndrome on both sides Obesity (BMI 35.0-39.9 without comorbidity) External hemorrhoids Lower back pain Anxiety Intermittent palpitations Encounter to establish care Surgical History History of colonoscopy Hx of section Hx of tubal ligation Family History Paternal Grandmother Esophageal cancer Son FH: mental illness Substance use disorder Social History Housing: House Alcohol intake: never Patient Tobacco Use Status: Former Tobacco user Tobacco use type: Cigarette Years Smoked: Infrequent e-Cigarette/Vaping Use: Never Used Second Hand Smoke Exposure: No service: No Current occupational status: employed 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 1. Little interest or pleasure in doing things: several days 2. Feeling down, depressed, or hopeless: several days 3. Trouble falling or staying asleep, or sleeping too much: nearly every day 4. Feeling tired or having little energy: several days 5. Poor appetite or overeating: nearly every day 6. Feeling bad about yourself - or that you are a failure or have let yourself or your family down: not at all 7. Trouble concentrating on things, such as reading the newspaper or watching television: nearly every day 8. Moving or speaking so slowly that other people could have noticed. Or the opposite - being so fidgety or restless that you have been moving around a lot more than usual: several days 9. Thoughts that you would be better off or of hurting yourself in some way: not at all Total score: 13 83622 - PHQ-9 Billing: Yes Source: Developed by Drs. Enzo Seay, Yadira Vargas, Hakeem Tinajero and colleagues, with an educational christine from [employer]. Thrive Questionnaire Date Thrive assessed: 09/06/24 I am a: Patient What is your living situation today?: I have a steady place to live Within the past 12 months, did the food you bought not last and you didn't have the money to get more?: Often true Within the past 12 months, did you worry whether your food would run out before you got money to buy more?: Often true Do you have trouble paying for medicines?: No Do you have trouble getting transportation to medical appointments?: No Do you have trouble paying your heating and electricity bill?: No Do you have trouble taking care of your child, family member or friend?: No Do you have trouble with day-to-day activities such as bathing, preparing meals, shopping, managing finances, etc.?: No Are you currently unemployed and looking for a job?: No Are you interested in more education?: Yes Please select the resources that you would like help with: None Currently or been in a relationship where the following occur: No concerns reported THRIVE Score: 2 AUDIT C Alcohol Use Questionnaire (AUDIT-C) 1. How often do you have a drink containing alcohol?: Never Total Score: 0 CLAIRE-7 AMB Questionnaire CLAIRE-7 Date CLAIRE - 7 assessed: 09/06/24 Feeling nervous, anxious, or on edge: 1 = Several days Not being able to stop or control worryin = Not at all Worrying too much about different things: 0 = Not at all Trouble relaxin = Not at all Being so restless that it is hard to sit still: 0 = Not at all Becoming easily annoyed or irritable: 0 = Not at all Feeling afraid as if something awful might happen: 0 = Not at all Total CLAIRE-7 score (0-4 normal; 5-9 mild; 10-14 moderate; 15-21 severe): 1 Source: Developed by Drs. Enzo Seay, Yadira Vargas, Hakeem Tinajero and colleagues, with an educational christine from [employer]. CLAIRE-7 Assessment Billing CLAIRE-7 Assessment Tool: CLAIRE-7 Assessment 49798 Physical exam (Primary Care) Vital Signs: Last Vital Signs Pulse 90 09/06/24 09:43 Resp 14 09/06/24 09:43 BP 126/80 09/06/24 09:43 Pulse Ox 98 09/06/24 09:43 Oxygen Delivery Method Room Air 09/06/24 09:43 BMI result Body Mass Index 36.8 BMI Assessment/Plan discussion: High BMI High, discussed plan: lifestyle Tobacco/Smoking Status: Tobacco use Status Tobacco use date assessed 09/06/24 09/06/24 09:46 Patient Tobacco Use Status Former Tobacco user 09/06/24 09:41 Tobacco use type Cigarette 09/06/24 09:41 e-Cigarette/Vaping Use Never Used 09/06/24 09:41 PHQ-9: PHQ-9 Score PHQ-9: Total score 13 09/06/24 10:30 Thrive Assessment: Date of Thrive Assessment Date Thrive assessed 09/06/24 09/06/24 09:41 Currently or been in a relationship where the following occur: No concerns reported Office Procedures Flu Questionnaire Does the patient have a severe egg allergy?: No Does the patient have severe life threatening allergies?: No Does the patient have a fever or illness today?: No Has the patient ever had Guillain-[place] Syndrome?: No Has the patient ever had any past reaction to a flu shot?: No [facility] Details: G0449 15 MINUTE OBESITY EDUCATION Office Procedure Billing Code: AMB Procedure Billing Code (G0449 15 MINUTE OBESITY EDUCATION) Immunizations Fluarix Triv 4014-6150 (PF) 45 mcg (15 mcg x 3)/0.5 mL IM syringe Performing Provider: RICCO Dobbs Performing Location[place] [facility] Administered by: Snow Taylor RN on 09/06/24 10:30 Dose Route Admin Location Dispensed Lot Number Expiration Date [employer] 0.5 mL IM Left Deltoid 0.5 mL [id number] 04/28/25 37370-074-27 [employer] VIS Given Date VIS Provided VIS Publication Date 09/06/24 Single Vaccine 21 Eligibility Eligibility Date Funding Source Not [facility] Eligible 09/06/24 Private Coding Level of Care Code Est Pt Level 5 (91800) Complex EM visit Add On G2211 Diagnoses Acute pain of right knee M25.561 Chronicity: acute Unstable right knee M25.361 Acute pain of right shoulder M25.511 Chronicity: acute BMI 36.0-36.9,adult Z68.36 Severe obesity with body mass index (BMI) of 36.0 to 36.9 with serious comorbidity E66.01; Z68.36 Flu vaccine need Z23 CPT Codes Office Procedure - Office Procedure Billing Code: AMB Procedure Billing Code ([id number]) Additional Codes CLAIRE-7 Assessment Billing - CLAIRE-7 Assessment Tool: CLAIRE-7 Assessment 78733 ([id number]) PHQ-9 - 10771 - PHQ-9 Billing: Yes ([id number]) Assessment & Plan Assessment & Plan (1) Right knee pain: Code(s): M25.561 - Pain in right knee Category: Medical Qualifiers: Chronicity: acute Qualified Code(s): M25.561 - Pain in right knee Plan: . (2) Unstable right knee: Code(s): M25.361 - Other instability, right knee Category: Medical Plan: . (3) Right shoulder pain: Code(s): M25.511 - Pain in right shoulder Category: Medical Qualifiers: Chronicity: acute Qualified Code(s): M25.511 - Pain in right shoulder Plan: . (4) BMI 36.0-36.9,adult: Code(s): Z68.36 - Body mass index [BMI] 36.0-36.9, adult Category: Medical Plan: . (5) Severe obesity with body mass index (BMI) of 36.0 to 36.9 with serious comorbidity: Comment: with HLD & IFG Code(s): E66.01 - Morbid (severe) obesity due to excess calories; Z68.36 - Body mass index [BMI] 36.0-36.9, adult Category: Medical Plan: . (6) Flu vaccine need: Code(s): Z23 - Encounter for immunization Category: Medical Plan: . Orders: Orders XR knee RT 4V 09/06/24 M25.361 - Other instability, right knee, M25.561 - Pain in right knee XR shoulder RT min 2V 09/06/24 M25.511 - Pain in right shoulder Influenza [id number] Immunization 09/06/24 Z23 - Encounter for immunization Referrals Orthopedics Referral M25.361 - Other instability, right knee, M25.511 - Pain in right shoulder, M25.561 - Pain in right knee Medications: New metformin ER 500 mg PO QPM 90 tabs 1RF bupropion HCl XL 150 mg PO DAILY 90 tabs 1RF Refilled clonidine HCl 0.1 mg PO .QD 90 tabs 1RF 90 days F41.1 - Generalized anxiety disorder
[2024-09-06 09:43] VITALS: BP 126/80; PULSE 90; RESP 14; O2SAT 98; BMI 36.8
== END 2024-09-06 10:28 | disposition home or self-care (01) ==
PROVIDERS: PCP Nurse Practitioner Family; Visit Provider Nurse Practitioner Family
DX: M25.561 Pain in right knee (principal); M25.361 Other instability, right knee; M25.511 Pain in right shoulder; Z68.36 Body mass index [BMI] 36.0-36.9, adult; E66.01 Morbid (severe) obesity due to excess calories

== ENCOUNTER → 2024-09-06 09:37 | Outpatient (BNVA) | payer OTHER, SELFPAY | PROVIDERS: PCP Nurse Practitioner Family; Visit Provider Nurse Practitioner Family | DX: Z23 Encounter for immunization (principal); M25.561 Pain in right knee; M25.361 Other instability, right knee; M25.511 Pain in right shoulder; E66.01 Morbid (severe) obesity due to excess calories; Z68.36 Body mass index [BMI] 36.0-36.9, adult; Z71.3 Dietary counseling and surveillance | CPT/HCPCS: 90471; 90656; 96127; 99212 ==

== ENCOUNTER 2024-09-19 11:04 | Outpatient (REF) | payer OTHER, SELFPAY ==
--- NOTE | ~2024-09-19 | XR_ITS ---
EXAMINATION: XR SHOULDER, RIGHT. XR KNEE, RIGHT. CLINICAL INFORMATION: Pain COMPARISON: None. TECHNIQUE: 4 views of the right shoulder. 4 views of the right knee. FINDINGS: Right shoulder: No acute fracture or malalignment. Mild glenohumeral and acromioclavicular osteoarthritis. Right knee: No fracture or malalignment. No joint effusion. Mild patellofemoral compartment osteoarthritis. Patellar enthesopathy. XR/XR knee RT 4V IMPRESSION: RIGHT SHOULDER: No acute osseous abnormality. Mild glenohumeral and acromioclavicular osteoarthritis. RIGHT KNEE: Mild patellofemoral compartment osteoarthritis. Electronically signed by: Adelso Manuel MD 09/19/2024 05:15 PM [facility]
--- NOTE | ~2024-09-19 | XR_ITS ---
EXAMINATION: XR SHOULDER, RIGHT. XR KNEE, RIGHT. CLINICAL INFORMATION: Pain COMPARISON: None. TECHNIQUE: 4 views of the right shoulder. 4 views of the right knee. FINDINGS: Right shoulder: No acute fracture or malalignment. Mild glenohumeral and acromioclavicular osteoarthritis. Right knee: No fracture or malalignment. No joint effusion. Mild patellofemoral compartment osteoarthritis. Patellar enthesopathy. XR/XR shoulder RT min 2V IMPRESSION: RIGHT SHOULDER: No acute osseous abnormality. Mild glenohumeral and acromioclavicular osteoarthritis. RIGHT KNEE: Mild patellofemoral compartment osteoarthritis. Electronically signed by: Adelso Manuel MD 09/19/2024 05:15 PM [facility]
== END 2024-09-19 11:05 | disposition home or self-care (01) ==
LOC: HO.XRAY 11:04
PROVIDERS: PCP Nurse Practitioner Family; Visit Provider Nurse Practitioner Family
DX: M25.561 Pain in right knee (principal); M25.361 Other instability, right knee; M25.511 Pain in right shoulder
CPT/HCPCS: 73030; 73564

== ENCOUNTER 2024-10-11 15:24 | Outpatient (AMB) | payer OTHER, SELFPAY ==
--- NOTE | 2024-10-11 16:27 | MHC.PC.OV ---
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 She reports chronic pain and instability in her right knee, describing it as feeling as though it might fail or give out , particularly during activities such as walking or climbing stairs. This symptom has been persistent and increasingly troubling over time. An x-ray revealed degeneration of one of the tendons in her knee, which is likely contributing to the instability and weakness she experiences. The patient's right shoulder was evaluated, with findings indicating very mild arthritis without acute changes. The patient describes periodic shoulder discomfort but denies current significant pain. Review of Systems - Musculoskeletal: Reports instability in the right knee. Denies current significant pain or discomfort in the right shoulder. Plan - Right Knee: A referral has been placed for an evaluation by an career information specialist on October 18 to assess the degeneration of the tendon and to determine appropriate management options, which may include further diagnostic testing or therapeutic interventions. - Right Shoulder: No immediate further evaluation or referrals are planned; the patient is advised to monitor symptoms and report any significant changes or escalation in discomfort to her orthopedic appointment. Patient was informed and verbally consented to the use of an ambient scribe for clinic note documentation during this visit. Discussion Notes During the visit, I explained to the patient that her right knee symptoms are likely due to tendon degeneration, leading to instability. An appointment with an orthopedist was scheduled for October 18 to evaluate the tendon degeneration further and discuss management options. I recommended that she keep this appointment to explore potential treatments, which might include surgical or non-surgical options, depending on the orthopedist's assessment. While discussing her shoulder, I informed her that the mild arthritis does not necessitate immediate specialist intervention, but she should mention any continuing discomfort during her orthopedic appointment, though no appointment specifically for the shoulder has been scheduled given the mild nature of the arthritis. I addressed her query regarding potential treatments for her knee, acknowledging that further specifics such as surgery, injections, or other therapies would be discussed with the career information specialist. Patient Instructions - Attend the scheduled orthopedic appointment on October 18 for further evaluation of the right knee. - Monitor the right shoulder for any changes or escalation in discomfort. - Be prepared to discuss both the knee and shoulder issues with the career information specialist. - Report any new symptoms or worsening of existing symptoms before the orthopedic appointment. Total time spent caring for the patient today was 30 minutes. This includes time spent before the visit reviewing the chart, time spent during the visit, and time spent after the visit on documentation [facility] Medical History (Updated 10/11/24 @ 16:33 by ROMEO Dobbs-CHARLOTTE) Carpal tunnel syndrome on both sides Obesity (BMI 35.0-39.9 without comorbidity) External hemorrhoids Lower back pain Anxiety Intermittent palpitations Encounter to establish care Surgical History History of colonoscopy Hx of section Hx of tubal ligation Family History Paternal Grandmother Esophageal cancer Son FH: mental illness Substance use disorder Social History Housing: House Alcohol intake: never Patient Tobacco Use Status: Former Tobacco user Tobacco use type: Cigarette Years Smoked: Infrequent e-Cigarette/Vaping Use: Never Used Second Hand Smoke Exposure: No service: No Current occupational status: employed 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 Enzo Seay, Yadira Vargas, Hakeem Tinajero and colleagues, with an educational christine from [employer]. Physical exam (Primary Care) Tobacco/Smoking Status: Tobacco use Status Tobacco use date assessed 09/06/24 09/06/24 09:46 Patient Tobacco Use Status Former Tobacco user 09/06/24 09:41 Tobacco use type Cigarette 09/06/24 09:41 e-Cigarette/Vaping Use Never Used 09/06/24 09:41 Thrive Assessment: Date of Thrive Assessment Date Thrive assessed 09/06/24 09/06/24 09:41 Telehealth Telehealth Telehealth Platform: [employer] Location of provider rendering services: practice address Location of patient: address on file Patient Identification confirmed using: Name, : Yes Telehealth method: voice only Patient verbally consented to treatment: Yes Patient verbally consented to billing insurance company: Yes Patient informed of any privacy concerns related to visit: Yes Minutes spent on Phone/Video with Pt.: 15 Results Reviewed Results Reviewed: [place] [address] XRay Report Signed Patient: Brittany Hughes MR#: [id number] : 1970 Acct:[id number] Age/Sex: 53 / F ADM Date: 09/19/24 Loc: [facility] Attending Dr: Shelbi CHACKO Ordering Physician: Shelbi Jarquin Date of Service: 09/19/24 Procedure(s): XR knee RT 4V Accession Number(s): [id number] cc: Shelbi Jarquin~ EXAMINATION: XR SHOULDER, RIGHT. XR KNEE, RIGHT. CLINICAL INFORMATION: Pain COMPARISON: None. TECHNIQUE: 4 views of the right shoulder. 4 views of the right knee. FINDINGS: Right shoulder: No acute fracture or malalignment. Mild glenohumeral and acromioclavicular osteoarthritis. Right knee: No fracture or malalignment. No joint effusion. Mild patellofemoral compartment osteoarthritis. Patellar enthesopathy. XR/XR knee RT 4V IMPRESSION: RIGHT SHOULDER: No acute osseous abnormality. Mild glenohumeral and acromioclavicular osteoarthritis. RIGHT KNEE: Mild patellofemoral compartment osteoarthritis. Electronically signed by: Adelso Manuel MD 09/19/2024 05:15 PM EST RP Dictated By: Adelso Manuel MD Signed By: <Electronically signed by Adelso Manuel MD in OV> 09/19/24 1715 DD/ 1110 TD/TT: 09/19/24 1135 Primary Grade Teacher: LOIS [place] [address] XRay Report Signed Patient: Brittany Hughes MR#: [id number] : 1970 Acct:[id number] Age/Sex: 53 / F ADM Date: 09/19/24 Loc: [facility] Attending Dr: Shelbi CHACKO Ordering Physician: Shelbi Jarquin Date of Service: 09/19/24 Procedure(s): XR shoulder RT min 2V Accession Number(s): [id number] cc: Shelbi Jarquin~ EXAMINATION: XR SHOULDER, RIGHT. XR KNEE, RIGHT. CLINICAL INFORMATION: Pain COMPARISON: None. TECHNIQUE: 4 views of the right shoulder. 4 views of the right knee. FINDINGS: Right shoulder: No acute fracture or malalignment. Mild glenohumeral and acromioclavicular osteoarthritis. Right knee: No fracture or malalignment. No joint effusion. Mild patellofemoral compartment osteoarthritis. Patellar enthesopathy. XR/XR shoulder RT min 2V IMPRESSION: RIGHT SHOULDER: No acute osseous abnormality. Mild glenohumeral and acromioclavicular osteoarthritis. RIGHT KNEE: Mild patellofemoral compartment osteoarthritis. Electronically signed by: Adelso Manuel MD 09/19/2024 05:15 PM EST RP Dictated By: Adelso Manuel MD Signed By: <Electronically signed by Adelso Manuel MD in OV> 09/19/24 1715 Coding Level of Care Code Tele Est Pt Level 4 (04292) Complex EM visit Add On G2211 Diagnoses Unstable right knee M25.361 Arthritis of right shoulder M19.011 Arthritis of right knee M17.11 Assessment & Plan Assessment & Plan (1) Unstable right knee: Code(s): M25.361 - Other instability, right knee Category: Medical (2) Arthritis of right shoulder: Code(s): M19.011 - Primary osteoarthritis, right shoulder Category: Medical (3) Arthritis of right knee: Code(s): M17.11 - Unilateral primary osteoarthritis, right knee Category: Medical Plan .
== END 2024-10-11 16:43 | disposition home or self-care (01) ==
LOC: HO.HMCFM 15:24
PROVIDERS: PCP Nurse Practitioner Family; Visit Provider Nurse Practitioner Family
DX: M25.361 Other instability, right knee (principal); M19.011 Primary osteoarthritis, right shoulder; M17.11 Unilateral primary osteoarthritis, right knee

== ENCOUNTER 2024-10-18 10:29 | Outpatient (AMB) | payer OTHER, SELFPAY ==
--- NOTE | 2024-10-18 10:34 | MHC.OFFVIS ---
Vital Signs 10/18/24 10:36 Height 5 ft 2 in Weight 201 lb BMI 36.8 Intake Visit Reasons: Newprob-right knee pain Intake Note: Brittany a 53 year old female who presents today for an evaluation of right knee pain. Patient reports her pain has been present for a while. Denies injury. States her knee gives out, denies fall. Her pain is intermittent pain and located at the anterior aspect of knee. Her pain increases with walking and with squatting she has to be careful. No previous tx. Finds relief with OTC medication however she tried to avoid taking medication. Medical Assistant Secretary Required: Yes Medical Assistant Secretary Services: Medical Assistant Secretary Present Medical Assistant Secretary Name: Kurt ID#[id number] Allergies No Known Allergies Allergy (Verified 10/18/24 10:40) Medication List - Last Reconciled 10/18/24 by Tamra Hackett PA-C atorvastatin 20 mg PO BEDTIME bupropion HCl XL 150 mg PO DAILY clonidine HCl 0.1 mg PO .QD 90 days multivitamin 1 tab PO DAILY HPI HPI Newprob-right knee pain: Details: 53-year-old female who presents to the office today for an evaluation of right knee pain. She has not had any injury in the past. She currently states she has intermittent pain at the anterior aspect of her knee that is aggravated with walking, squatting and bending. She denies any prior treatment. She also experiences crunching and clicking in her knees. She finds relief with OTC medication however she avoids taking the medicine. [facility] Medical History (Updated 10/11/24 @ 16:33 by RICCO Dobbs) Carpal tunnel syndrome on both sides Obesity (BMI 35.0-39.9 without comorbidity) External hemorrhoids Lower back pain Anxiety Intermittent palpitations Encounter to establish care Surgical History History of colonoscopy Hx of section Hx of tubal ligation Family History Paternal Grandmother Esophageal cancer Son FH: mental illness Substance use disorder Social History Housing: House Alcohol intake: never Patient Tobacco Use Status: Former Tobacco user Tobacco use type: Cigarette Years Smoked: Infrequent e-Cigarette/Vaping Use: Never Used Second Hand Smoke Exposure: No service: No Current occupational status: employed 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 Lateral retropatellar tenderness present. Full ROM with crepitus. Negative Shahida?s. No ligamentous laxity. NVI. Results Reviewed Results Reviewed: XR knee RT 4V IMPRESSION:. RIGHT KNEE: Mild patellofemoral compartment osteoarthritis. Assessment & Plan Assessment & Plan (1) Arthritis of right knee: Code(s): M17.11 - Unilateral primary osteoarthritis, right knee Category: Medical Plan We discussed options which include PT, NSAIDs and injections. The patient will defer on the injection today and proceed with PT and NSAIDs. A prescription for Celebrex was sent to her pharmacy and she was also fit for a Genumed knee brace in the office today. If symptoms persist, she will contact me for an injection, otherwise, PRN. Orders: Orders PT Evaluation and Treatment Today M17.11 - Unilateral primary osteoarthritis, right knee Medications: New celecoxib (Celebrex) 200 mg PO BID 60 caps 3RF 30 days Patient Instructions: Scribed for Tamra Hackett PA-C, by Tim Ramírez emergency medical service coordinator, on 10/18/2024 at 10:45 AM EST.? I, Tamra Hackett PA-C, have personally reviewed and agree with the information entered by the scribe. Coding Level of Care Code New Pt Level 3 (66606) Complex EM visit Add On G2211 Diagnoses Arthritis of right knee M17.11
[2024-10-18 10:36] VITALS: BMI 36.8
== END 2024-10-18 11:19 | disposition home or self-care (01) ==
PROVIDERS: PCP Nurse Practitioner Family; Visit Provider Physician Assistant
DX: M17.11 Unilateral primary osteoarthritis, right knee (principal)
CPT/HCPCS: 99203; G2211

== ENCOUNTER → 2024-10-18 10:29 | Outpatient (BNVA) | payer OTHER, SELFPAY | PROVIDERS: PCP Nurse Practitioner Family; Visit Provider Physician Assistant | DX: M17.11 Unilateral primary osteoarthritis, right knee (principal) | CPT/HCPCS: 99202 ==

== ENCOUNTER → 2024-12-04 15:00 | Outpatient (BNV) | payer OTHER, SELFPAY | PROVIDERS: PCP Nurse Practitioner Family; Visit Provider Internal Medicine | DX: Z12.31 Encounter for screening mammogram for malignant neoplasm of breast (principal) | CPT/HCPCS: 77063; 77067 ==

== ENCOUNTER 2024-12-06 09:58 | Outpatient (AMB) | payer OTHER, SELFPAY ==
--- NOTE | 2024-12-06 10:04 | MHC.OFFVIS ---
Intake Visit Reasons: OV- Right hand CTS f/u last injection 08/07/24 Intake Note: Britatny is a 53 year old right hand dominant female who presents today for a follow up of her bilateral hand CTS. At her last visit she was given bilateral velcro wrist braces and referred to occupational therapy. Last injection 08/07/24 in the right wrist. She mentions that her left hand is worse than the right. Patient reports that her symptoms in her right hand has improved with the injection and the braces. Caustic Strength Inspector Required: Yes Caustic Strength Inspector Services: Caustic Strength Inspector Present (Sacha ([id number])) Allergies No Known Allergies Allergy (Verified 12/06/24 10:04) Medication List - Last Reconciled 12/06/24 by Anali Reyes RN atorvastatin 20 mg PO BEDTIME bupropion HCl XL 150 mg PO DAILY celecoxib (Celebrex) 200 mg PO BID 30 days clonidine HCl 0.1 mg PO .QD 90 days multivitamin 1 tab PO DAILY HPI Comments Details: Pain on wrists and forearms, even elbows, bilateral. She has numbness on all fingers. Points to right CMC as being painful, thinks maybe joint is sinking down . Denies weakness. No trauma or falls. EMG done 01/2022 bilateral mild-moderate CTS, test done by Dr. Pereira. She had injection more than a year, helped her partially 2-3 months. Repeat EMG done by tx 05/31/2024: IMPRESSION: 1. This is an abnormal study. 2. There is electrodiagnostic evidence for bilateral borderline/mild median neuropathy at the wrist, consistent with carpal tunnel syndrome. 3. There is no electrodiagnostic evidence for ulnar neuropathy, brachial plexopathy, or cervical radiculopathy. We have tried Carpal Tunnel Syndrome injections, 07/10/2024 for left side, 08/07/2024 for right side. Left side improved on first few days, lasting only maybe a month only. Right side is improved until now, still hurts but milder. [facility] Medical History (Updated 12/06/24 @ 10:25 by Kim Dhaliwal MD) Carpal tunnel syndrome on both sides Obesity (BMI 35.0-39.9 without comorbidity) External hemorrhoids Lower back pain Anxiety Intermittent palpitations Encounter to establish care Surgical History History of colonoscopy Hx of section Hx of tubal ligation Family History Paternal Grandmother Esophageal cancer Son FH: mental illness Substance use disorder Social History Housing: House Alcohol intake: never Patient Tobacco Use Status: Former Tobacco user Tobacco use type: Cigarette Years Smoked: Infrequent e-Cigarette/Vaping Use: Never Used Second Hand Smoke Exposure: No service: No Current occupational status: employed 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 MSK: No joint effusion noted. No deformity noted. Some tenderness over bilateral CMC joint and other MCP joints. No intrinsic hand weakness noted. No atrophy noted. Ryan test negative. Carpal compression test positive bilateral. No triggering. Strength is 5/5 in all muscle groups tested. No increased tone noted. Neurological: Neurologic examination of the upper and lower extremities was nonfocal with intact sensation, muscle stretch reflexes and without focal motor deficits . Astudillo?s negative bilaterally. Gait is non-antalgic without loss of balance. Results Reviewed Results Reviewed: Ordering Physician: Kim Fuchs Date of Service: 05/10/24 Procedure(s): XR hand LT min 3V Accession Number(s): [id number] cc: Kim Fuchs~ EXAMINATION: XR HAND, RIGHT XR HAND, LEFT CLINICAL INFORMATION: Hand pain. COMPARISON: 09/28/2018 TECHNIQUE: PA, lateral, and oblique views of each hand. FINDINGS: RIGHT HAND: No fracture or malalignment. Mild multifocal osteoarthritis is characterized primarily by small marginal osteophytes with areas of mild joint space narrowing, most notably at the thumb IP joint. Osteoarthritis involves the triscaphe, 1st CMC, MCP, and interphalangeal joints diffusely. No erosions. Bone mineralization is normal. No periostitis or appreciable soft tissue calcifications. LEFT HAND: No fracture or malalignment. Mild multifocal osteoarthritis is characterized primarily by small marginal osteophytes and is most notable at the 1st CMC joint and thumb IP joint, though also evident at multiple MCP and interphalangeal joints. No erosions. Bone mineralization is normal. No soft tissue calcifications or periostitis. 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 No acute osseous findings. No evidence of inflammatory arthropathy. Assessment & Plan Assessment & Plan (1) Carpal tunnel syndrome on both sides: Code(s): G56.03 - Carpal tunnel syndrome, bilateral upper limbs Category: Medical (2) Hand arthritis: Code(s): M19.049 - Primary osteoarthritis, unspecified hand Category: Medical Qualifiers: Laterality: bilateral Qualified Code(s): M19.041 - Primary osteoarthritis, right hand; M19.042 - Primary osteoarthritis, left hand Plan Bilateral Carpal Tunnel Syndrome symptoms that have not improved with conservative measures such as bracing, OT and injection. With underlying osteoarthritis of the hands. EMG has shown mild findings last year 05/31/2024. We will repeat EMG/NCS and afterwards refer her to Dr. Tang, hand surgery. Assessment and plan discussed with patient, and patient was agreeable. All questions were answered thoroughly. Kim Dhaliwal MD, SAMUEL Board Certified, [place] Board [employer] Physical Medicine and Rehabilitation (ABPMR) Board Certified, [place] Board of Electrodiagnostic Medicine (ABEM) Orders: Orders NE nerve conduction velocity Today G56.03 - Carpal tunnel syndrome, bilateral upper limbs NE electromyogram (EMG) Today G56.03 - Carpal tunnel syndrome, bilateral upper limbs Coding Level of Care Code Est Pt Level 4 (93375) Diagnoses Carpal tunnel syndrome on both sides G56.03 Arthritis of both hands M19.041; M19.042 Laterality: bilateral
--- OUTSIDE RECORDS SUMMARY | 2024-12-06 10:44 | XMS_ITS | Encounter Summary ---
Author Organization [facility] Address [address] [place] [address] Care Team Providers Care Radiology Transporter Name Role Phone Unavailable Primary Care Provider Unavailabl e Encounter Details Date Type Department Care Team (Late st Contact Info) Description 12/30/2022 Abstract [facility] ADULT DENTAL [address] [place] [address] Boni Orta DDS [address] [place] [address] Social History Tobacco Use Types Packs/Day Years Used Date Smoking Tobacco: Former Cigarettes Passive Smoke Exposure: Never Smokeless Tobacco: Never Comments Unknown Sex and Gender Information Value Date Recorded Sex Assigned at Female 08/29/2022 10:38 AM EDT Legal Sex Female 10:38 AM EDT Gender Identity Female 08/29/2022 10:38 AM EDT Sexual Orientation Don't know 08/29/2022 10 :38 AM EDT COVID-19 Exposure Response Date Recorded In the last 10 days, have yo u been in contact with someone who was confirmed or suspected to have Coronavirus/COVID-19? No / Unsure 12/30/2022 7:54 AM EST documented as of this encounter Plan of Treatment Not on file documented as of this encounter Visit Diagnoses Not on filedocumented in this encounter
--- OUTSIDE RECORDS SUMMARY | 2024-12-06 10:44 | XMS_ITS | Encounter Summary ---
Author Organization [facility] Address [address] [place] [address] Care Team Providers Care Hospital Carrier Name Role Phone Unavailable Primary Care Provider Unavailabl e Encounter Details Date Type Department Care Team (Latest Contact Info) Description 09/27/2022 Abstract [facility] CONVERSIONS Dental, Provider, DDS Social History Tobacco Use Types Packs/Day Years Used Date Smoking Tobacco: Never Assessed Comments Unknown Sex and Gender Information Value Date Recorded Sex Assigned at Female 08/29/2022 10:38 AM EDT Legal Sex Female 10:38 AM EDT Gender Identity Female 08/29/2022 10:38 AM EDT Sexual Orientation Don't know 08/29/2022 10 :38 AM EDT documented as of this encounter Plan of Treatment Not on file documented as of this encounter Visit Diagnoses Not on filedocumented in this encounter
--- OUTSIDE RECORDS SUMMARY | 2024-12-06 10:44 | XMS_ITS | Patient Health Record ---
Author Organization [facility] Address [address] [place] [address] Care Team Providers Care Sausage Linker Name Role Phone Nubia Duran Primary Care Provider Mynor Brewer Jr Unavailable ALLERGIES No Known Allergies REASON FOR REFERRAL No Information MEDICATIONS Medication SIG (Take, Route, Frequency, Duration) Notes Start Date End Date Status MiraLax (colon prep) 17 GM/SCOOP mixed with Gatorade or Crystal Light Orally begin at 5:00 p.m. the day before the procedure for 1 day 04/20/2022 Active IMMUNIZATIONS Vaccine Route Administration Date Status Comme nts Influenza Unknown 04/20/2022 Refused SOCIAL HISTORY Tobacco Use: Social History Observation Description Date Details (start date - stop date) Never Smoker NA - NA Sex Assigned At : Social History Observation Description Sex Assigned At Unknown Tobacco Use/Smoking Question Answer Notes Patient is a nonsmoker Alcohol Screen Question Answer Notes Did you have a drink containing alcohol in the p ast year? No Points 0 Interpretation Negative PROBLEMS Problem Type ICD Code Onset Dates Problem Status W/U Status Risk SNOMED Code Notes Problem Rectal bleeding (K62.5) Active confirmed [id number] PLAN OF TREATMENT Future Test Test Name Order Date COLONOSCOPY 04/20/2022 Insurance Providers Payer Name Payer Address Payer Phone Subscriber Number Group Number Insured Name Patient Relationship to Insured Coverage Start Date Coverage End Date [facility] [employer] [facility] [address] [address] [place], [place] [id number] EMILY SHERIFF Self - patient is the insured MEDICAL (GENERAL) HISTORY Medical History History ICD Code Denies PA,DM,CVA,Lung disease,renal dise ase Surgical History Surgery Date(Month/Year) Varicose vein surgery section tubal ligation
--- OUTSIDE RECORDS SUMMARY | 2024-12-06 10:44 | XMS_ITS | Clinical Summary ---
Author Organization [facility] ity Address [address] [place] [address] Care Team Providers Care Senior Tax Accountant Name Role Phone Unavailable Primary Care Provider Unavailabl e Social History Tobacco Use Types Packs/Day Years Used Date Smoking Tobacco: Never Assessed Sex and Gender Information Value Date Recorded Sex Assigned at Not on file Gender Identity Not on file Sexual Orientation Not on file Plan of Treatment Health Maintenance Due Date Last Done Comments Breast Cancer Screening 1971 DTaP,Tdap,and Td Vaccines (1 - Tdap) 1990 Hepatitis B Vaccines (1 of 3 - 19+ 3-dose series) 1990 Cervical Cancer Screening: P ap Smear 1992 Zoster Vaccines (1 of 2) 2021 Colorectal Cancer Screening: Colonoscopy 11/24/2023 Depression Screening 11/24/2023 HIV Screening 11/24/2023 Hepatitis C Screening 11/24/2023 Social Influencers of Health Screening 11/24/2023 COVID-19 Vaccine ( - 2023-2 5 season) 2024 Influenza Vaccine (#1) 2024 HIB Vaccines Aged Out No longer eligi ble based on patient's age to complete this topic HPV Vaccines Aged Out No longer eligi ble based on patient's age to complete this topic Hepatitis A Vaccines Aged Out No long er eligible based on patient's age to complete this topic IPV Vaccines Aged Out No longer eligi ble based on patient's age to complete this topic MMR Vaccines Aged Out No longer eligi ble based on patient's age to complete this topic Meningococcal ACWY Vaccine Aged Out N o longer eligible based on patient's age to complete this topic Pneumococcal Vaccine: Pediat rics (0 to 5 Years) and At-Risk Patients (6 to 64 Years) Aged Out No longer eligible b ased on patient's age to complete this topic RSV Immunization Patients Un annabel 20 months Aged Out No longer eligible b ased on patient's age to complete this topic Varicella Vaccines Aged Out No longer eligible based on patient's age to complete this topic
--- OUTSIDE RECORDS SUMMARY | 2024-12-06 10:44 | XMS_ITS | Clinical Summary ---
Author Organization [employer] Address [address] [place] [address] Care Team Providers Care Stiff Straw Hat Washer Name Role Phone Unavailable Primary Care Provider Unavailabl e Allergies No known active allergies Medications cyclobenzaprine (Flexeril) 5 MG tablet TAKE 1 TABLET BY MOUTH DAILY AT BEDTIME NEEDED 11/18/2022 Active ibuprofen 800 MG tablet Take 1 tablet by mouth every 8 (eight) hours. 08/19/2022 Active Active Problems Problem Noted Date Diagnosed Date Periodontal disease 12/30/2022 Dental calculus 12/30/2022 Social History Tobacco Use Types Packs/Day Years Used Date Smoking Tobacco: Former Cigarettes Passive Smoke Exposure: Never Smokeless Tobacco: Never Tobacco Cessation:Counseling Given: Not Answered Comments Unknown Sex and Gender Information Value Date Recorded Sex Assigned at Female 08/29/2022 10:38 AM EDT Legal Sex Female 10:38 AM EDT Gender Identity Female 08/29/2022 10:38 AM EDT Sexual Orientation Don't know 08/29/2022 10 :38 AM EDT Last Filed Vital Signs Vital Sign Reading Time Taken Comments Blood Pressure 128/76 12/30/2022 8:08 AM EST Pulse 74 12/30/2022 8:08 AM EST Temperature - - Respiratory Rate - - Oxygen Saturation - - Inhaled Oxygen Concentration - - Weight - - Height - - Body Mass Index - - Plan of Treatment Health Maintenance Due Date Last Done Comments CT Colonography 1971 Colonoscopy 1971 Colorectal Cancer Screening 1971 Dental Oral Exam 1971 Dental Prophylaxis 1971 Dental X-Ray: Bitewings 1971 Dental X-Ray: Full Mouth 1971 Depression Screening 1971 FIT DNA/Cologuard 1971 FIT 1971 FOBT 1971 HIV Screening 1971 SDOH Screening 1971 Sigmoidoscopy 1971 Alcohol/Substance Use Screening 1983 Family Planning (PISQ) 1986 Hepatitis C Screening 1989 Hepatitis B Vaccines (1 of 3 - 19+ 3-dose series) 1990 Pap Smear 1992 Cervical Cancer Screening 2001 HPV/Cotest 2001 Mammogram 2011 Pneumococcal Vaccine: 50+ Years (1 of 1 - PCV) 2021 Zoster Vaccines (1 of 2) 2021 Tobacco Screening 12/31/2023 12/30/2022 COVID-19 Vaccine (3 - 2023-2 5 season) 2024 10/11/2021, 09/20/2021 Influenza Vaccine (#1) 2024 , 10/02/2015 DTaP/Tdap/Td Vaccines (2 - T d or Tdap) 11/18/2032 11/18/2022 RSV Patients and Patients Aged 60 years or older (1 - 1-dose 75+ series) 2046 HIB Vaccines Aged Out No longer eligi [...] patient's age to complete this topic Meningococcal Vaccine Aged Out No won wiliam eligible based on patient's age to complete this topic Pneumococcal Vaccine: Pediatrics (0 to 5 Years) and At-Risk Patients (6 to 49) Years) Aged Out No longer eligible b ased on patient's age to complete this topic RSV under 20 months Aged Out No longe r eligible based on patient's age to complete this topic Rotavirus Vaccines Aged Out No longer eligible based on patient's age to complete this topic Insurance [address] ROBERTA Booker [id number] [facility] MEDICAID STAND ADULT
--- OUTSIDE RECORDS SUMMARY | 2024-12-06 10:44 | XMS_ITS | Encounter Summary ---
Author Organization [facility] Address [address] [facility] 7t [place] [address] Care Team Providers Care Press Tender Name Role Phone Unavailable Primary Care Provider Unavailabl e Encounter Details Date Type Department Care Team (Late st Contact Info) Description 12/30/2022 Abstract [facility] ADULT DENTAL [address] [place] [address] Boni Orta DDS [address] [place] [address] Social History Tobacco Use Types Packs/Day Years [...]
--- OUTSIDE RECORDS SUMMARY | 2024-12-06 10:44 | XMS_ITS | Encounter Summary ---
Author Organization [facility] Address [address] [facility] [address] [place] [address] Care Team Providers Care Precision Grinder External Name Role Phone Unavailable Primary Care Provider Unavailabl e Encounter Details Date Type Department Care Team (Late st Contact Info) Description 12/30/2022 Abstract [facility] ADULT DENTAL [address] [place] [address] Boni Orta DDS [address] [place] [address] Social History Tobacco Use Types Packs/Day Years [...]
--- OUTSIDE RECORDS SUMMARY | 2024-12-06 10:44 | XMS_ITS | Encounter Summary ---
Author Organization [employer] [facility] Address [address] [facility] [address] [place] [address] Care Team Providers Care Athletic Turf Worker Name Role Phone Unavailable Primary Care Provider Unavailabl e Encounter Details Date Type Department Care Team (Late st Contact Info) Description 11/07/2022 Abstract [facility] ADULT DENTAL [address] [place] [address] Boni Orta DDS [address] [place] [address] Social History Tobacco Use Types Packs/Day Years [...]
--- OUTSIDE RECORDS SUMMARY | 2024-12-06 10:44 | XMS_ITS | Encounter Summary ---
Author Organization [employer] Address [address] [facility] [address] [place] [address] Care Team Providers Care Coal Hauler Operator Name Role Phone Unavailable Primary Care Provider Unavailabl e Encounter Details Date Type Department Care Team (Late st Contact Info) Description 12/30/2022 Abstract [facility] ADULT DENTAL [address] [place] [address] Ketty Greene [address] [place] [address] Social History Tobacco Use Types Packs/Day Years [...]
== END 2024-12-06 10:40 | disposition home or self-care (01) ==
PROVIDERS: PCP Nurse Practitioner Family; Visit Provider Physical Medicine & Rehabilitation
DX: G56.03 Carpal tunnel syndrome, bilateral upper limbs (principal); M19.041 Primary osteoarthritis, right hand; M19.042 Primary osteoarthritis, left hand
CPT/HCPCS: 99214

== ENCOUNTER → 2024-12-06 09:58 | Outpatient (BNVA) | payer OTHER, SELFPAY | PROVIDERS: PCP Nurse Practitioner Family; Visit Provider Physical Medicine & Rehabilitation | DX: G56.03 Carpal tunnel syndrome, bilateral upper limbs (principal); M19.041 Primary osteoarthritis, right hand; M19.042 Primary osteoarthritis, left hand | CPT/HCPCS: 99212 ==

== ENCOUNTER 2025-01-09 15:24 | Outpatient (REF) | payer OTHER, SELFPAY ==
--- NOTE | 2025-01-09 15:27 | EMG_ITS ---
Chief complaint: Previous NCS/EMG in 05/31/2024 showed just borderline bilateral Carpal Tunnel Syndrome. We have done conservative management for Carpal Tunnel Syndrome including injections without much relief. Patient continues to complain of both hand pain and numbness. Hand x-rays did show arthritis. She mentions numbness in the feet as well. No history of diabetes. History of low vitamin-D. Reason for referral: Evaluate for Carpal Tunnel Syndrome Procedure done: Repeat nerve conduction studies Precautions and/or limitations: None The limb temperature was monitored continuously and remained between 32-36 degrees C during the performance of the NCS. Nerve Conduction Studies Anti Sensory Summary Table ?Stim Site NR Onset (ms) Norm Onset (ms) Peak (ms) Norm Peak (ms) O-P Amp (?V) Norm O-P Amp Site1 Site2 Delta-0 (ms) Dist (cm) Keyur (m/s) Norm Keyur (m/s) Left Median Anti Sensory (2nd Digit) Wrist ? 2.5 3.0 <3.6 57.6 >10 Wrist 2nd Digit 2.5 14.0 56 Right Median Anti Sensory (2nd Digit) Wrist ? 2.4 3.2 <3.6 54.3 >10 Wrist 2nd Digit 2.4 14.0 58 Left Ulnar Anti Sensory (5th Digit) Wrist ? 2.1 2.6 <3.7 15.3 >15.0 Wrist 5th Digit 2.1 14.0 67 Right Ulnar Anti Sensory (5th Digit) Wrist ? 1.9 2.4 <3.7 18.9 >15.0 Wrist 5th Digit 1.9 14.0 74 Motor Summary Table ?Stim Site NR Onset (ms) Norm Onset (ms) O-P Amp (mV) Norm O-P Amp iAmp (mV) Amp (1st) (%) Site1 Site2 Delta-0 (ms) Dist (cm) Keyur (m/s) Norm Keyur (m/s) Left Median Motor (Abd Poll Brev) Wrist ? 3.4 <3.9 9.3 >4.5 11.0 100.0 Elbow Wrist 3.2 18.0 56 >45 Elbow ? 6.6 8.4 10.0 90.3 Right Median Motor (Abd Poll Brev) Wrist ? 3.6 <3.9 10.6 >4.5 13.3 100.0 Elbow Wrist 3.1 19.0 61 >45 Elbow ? 6.7 10.2 13.1 96.2 Left Ulnar Motor (Abd Dig Minimi) Wrist ? 2.2 <3.0 8.1 >5 10.1 100.0 B Elbow Wrist 2.8 17.0 61 >45 B Elbow ? 5.0 7.9 10.0 97.5 A Elbow B Elbow 1.3 10.0 77 >45 A Elbow ? 6.3 7.6 9.9 93.8 Right Ulnar Motor (Abd Dig Minimi) Wrist ? 2.5 <3.0 7.8 >5 9.8 100.0 B Elbow Wrist 2.6 17.0 65 >45 B Elbow ? 5.1 7.6 10.4 97.4 A Elbow B Elbow 1.2 10.0 83 >45 A Elbow ? 6.3 7.7 10.6 98.7 Comparison Summary Table ?Stim Site NR Peak (ms) Norm Peak (ms) P-T Amp (?V) Site1 Site2 Delta-P (ms) Norm Delta (ms) Left Median/Radial Dig I Comparison (Digit 1 - 10cm) Median ? 2.5 <2.9 79.1 Median Radial 0.6 Radial ? 1.9 <2.8 44.4 Right Median/Radial Dig I Comparison (Digit 1 - 10cm) Median ? 2.8 <2.9 51.7 Median Radial 0.7 Radial ? 2.1 <2.8 31.3 FINDINGS: Interlatency difference between right median and radial sensory nerves was 0.7; 0.6 on left. All other nerves tested within normal. IMPRESSION: 1. This is a minimally abnormal study. 2. There is electrodiagnostic evidence for borderline/very mild median neuropathy at the wrist. 3. There is no electrodiagnostic evidence for ulnar neuropathy. CLINICAL COMMENT: No significant change from previous NCS. We will send patient for further workup/blood test. Follow up with me in physiatry. Thank you for your kind referral. Kim Dhaliwal MD, SAMUEL Board Certified, [place] Board of Physical Medicine and Rehabilitation (ABPMR) Board Certified, [place] Board of Electrodiagnostic Medicine (ABEM) CODIN 5 911 MTDD
--- OUTSIDE RECORDS SUMMARY | 2025-01-09 19:01 | XMS_ITS | Encounter Summary ---
Author Organization [address] [facility] Address [address] [facility] [address]t [place] [address] Care Team Providers Care Small Package And Bundle Sorter Clerk Name Role Phone Unavailable Primary Care Provider Unavailabl e Encounter Details Date Type Department Care Team (Late st Contact Info) Description 12/30/2022 Abstract [facility] ADULT DENTAL [address] [place] [address] Boni Orta DDS [address] [place] [address] Social History Tobacco Use Types Packs/Day Years [...]
--- OUTSIDE RECORDS SUMMARY | 2025-01-09 19:01 | XMS_ITS | Encounter Summary ---
Author Organization [employer] [facility] Address [address] [facility] [address] [place] [address] Care Team Providers Care Flight Operations Inspector Name Role Phone Unavailable Primary Care Provider Unavailabl e Encounter Details Date Type Department Care Team (Late st Contact Info) Description 12/30/2022 Abstract [facility] ADULT DENTAL [address] [place] [address] Boni Orta DDS [address] [place] [address] Social History Tobacco Use Types Packs/Day Years [...]
--- OUTSIDE RECORDS SUMMARY | 2025-01-09 19:01 | XMS_ITS | Clinical Summary ---
Author Organization [facility] it Address [address] [place] [address] Care Team Providers Care Ip Attorney Name Role Phone Unavailable Primary Care Provider Unavailabl e Social History Tobacco Use Types Packs/Day Years Used Date Smoking Tobacco: Never Assessed Comments Unknown Sex and Gender Information Value Date Recorded Sex Assigned at Not on file Legal Sex Female 8:59 PM EST Gender Identity Not on file Sexual Orientation Not on file Plan of Treatment Health Maintenance Due Date Last Done Comments Breast Cancer Screening 1971 DTaP,Tdap,and Td Vaccines (1 - Tdap) 1990 Hepatitis B Vaccines (1 of 3 - 19+ 3-dose series) 1990 Cervical Cancer Screening: P ap Smear 1992 Pneumococcal Vaccine: 50+ Ye ars (1 of 1 - PCV) 2021 Zoster Vaccines (1 of 2) 2021 Colorectal [...] patient's age to complete this topic Meningococcal B Vacine Aged Out No lo nger eligible based on patient's age to complete [...]
--- OUTSIDE RECORDS SUMMARY | 2025-01-09 19:01 | XMS_ITS | Patient Health Record ---
Author Organization [facility] Address [address] [place] [address] Care Team Providers Care Accounts Payable Bookkeeper Name Role Phone Nubia Duran Primary Care Provider Mynor Brewer Jr Unavailable Allergies No Known Allergies Reason For Referral No Information Medications Medication SIG (Take, Route, Frequency, Duration) Notes Start Date End Date Status MiraLax (colon prep) 17 GM/SCOOP mixed with Gatorade or Crystal Light Orally begin at 5:00 p.m. the day before the procedure for 1 day 04/20/2022 Active Immunizations Vaccine Route Administration Date Status Comme nts Influenza Unknown 04/20/2022 Refused Social History Tobacco Use: Social History Observation Description Date Details (start date - stop date) Never Smoker NA - NA Tobacco Use/Smoking Question Answer Notes Patient is a nonsmoker Alcohol Screen Question Answer Notes Did you have a drink containing alcohol in the p ast year? No Points 0 Interpretation Negative Problems Problem Type SNOMED Code ICD Code Onset Dates Problem Status W/U Status Risk Notes Problem [id number] Rectal bleeding (K62.5) Active confirmed Plan Of Treatment Future Test Test Name Order Date COLONOSCOPY 04/20/2022 Insurance Providers Payer Name Payer Address Payer Phone Subscriber Number Group Number Insured Name Patient Relationship to Insured Coverage Start Date Coverage End Date [facility] [employer] [facility] [address] [address] [place], [place] [id number] EMILY SHERIFF Self - patient is the insured Medical (General) History Medical History History ICD Code Denies [place],DM,CVA,Lung disease,renal dise ase Surgical History Surgery Date(Month/Year) Varicose vein surgery section tubal ligation
--- OUTSIDE RECORDS SUMMARY | 2025-01-09 19:01 | XMS_ITS | Encounter Summary ---
Author Organization [employer] [facility] Address [address] [facility] [address] [place] [address] Care Team Providers Care Director Insurance Name Role Phone Unavailable Primary Care Provider Unavailabl e Encounter Details Date Type Department Care Team (Late st Contact Info) Description 11/07/2022 Abstract [facility] ADULT DENTAL [address] [place] [address] Boni Orta DDS [address] [place] [address] Social History Tobacco Use Types Packs/Day Years [...]
--- OUTSIDE RECORDS SUMMARY | 2025-01-09 19:01 | XMS_ITS | Clinical Summary ---
Author Organization [employer] Address [address] [facility] [address] [place] [address] Care Team Providers Care Store Protection Specialist Name Role Phone Unavailable Primary Care Provider [...] 1971 Sigmoidoscopy 1971 Alcohol/Substance Use Screening 1983 Hepatitis C Screening 1989 Hepatitis B Vaccines [...] patient's age to complete this topic Insurance [facility] MED[place] STAND ADULT
--- OUTSIDE RECORDS SUMMARY | 2025-01-09 19:01 | XMS_ITS | Encounter Summary ---
Author Organization [facility] Address [address] [facility] [address] [place] [address] Care Team Providers Care Inner Tube Tuber Machine Operator Name Role Phone Unavailable Primary Care Provider Unavailabl e Encounter Details Date Type Department Care Team (Latest Contact Info) Description 09/27/2022 Abstract [facility] CONVERSIONS Dental, Provider, DDS Social History Tobacco [...]
--- OUTSIDE RECORDS SUMMARY | 2025-01-09 19:01 | XMS_ITS | Encounter Summary ---
Author Organization [facility] [facility] Address [address] [facility] [address]t [place] [address] Care Team Providers Care Route Deliverer Name Role Phone Unavailable Primary Care Provider Unavailabl e Encounter Details Date Type Department Care Team (Late st Contact Info) Description 12/30/2022 Abstract [facility] ADULT DENTAL [address] [place] [address] Boni Orta DDS [address] [place] [address] Social History Tobacco Use Types Packs/Day Years [...]
--- OUTSIDE RECORDS SUMMARY | 2025-01-09 19:01 | XMS_ITS | Encounter Summary ---
Author Organization [employer] Address [address] [facility] 7t [place] [address] Care Team Providers Care Shovel Engineer Name Role Phone Unavailable Primary Care Provider Unavailabl e Encounter Details Date Type Department Care Team (Late st Contact Info) Description 12/30/2022 Abstract [facility] ADULT DENTAL [address] [place] [address] Ketty Greene [address] [place] [address] Social History Tobacco Use Types Packs/Day Years [...]
== END 2025-01-09 15:25 | disposition home or self-care (01) ==
LOC: HO.NEURO 15:24
PROVIDERS: PCP Nurse Practitioner Family; Visit Provider Physical Medicine & Rehabilitation
DX: G56.03 Carpal tunnel syndrome, bilateral upper limbs (principal)
CPT/HCPCS: 95911

== ENCOUNTER → 2025-01-09 15:27 | Outpatient (BNV) | payer OTHER, SELFPAY | PROVIDERS: PCP Nurse Practitioner Family; Visit Provider Physical Medicine & Rehabilitation | DX: G56.03 Carpal tunnel syndrome, bilateral upper limbs (principal) | CPT/HCPCS: 95911 ==

== ENCOUNTER 2025-01-20 11:15 | Outpatient (REF) | payer OTHER, SELFPAY ==
[2025-01-20 12:57] LABS: Uric Acid 4.4 mg/dL (2.4-5.7)
[2025-01-20 12:58] LABS: Rheumatoid Factor < 13.0 IU/mL (<15.0)
[2025-01-20 13:12] LABS: Vitamin D 25-OH Total 27.3 ng/mL (>30)
[2025-01-20 13:31] LABS: Folate 14.1 ng/mL (> or = 4.0); Vitamin B12 443 pg/mL (200-900)
[2025-01-23 14:44] LABS: ANA Pattern 2 Nuclear, Nucleolar; Anti Nuclear Antibody Screen POSITIVE (NEGATIVE)
== END 2025-01-20 11:16 | disposition home or self-care (01) ==
LOC: HO.LAB 11:15
PROVIDERS: Absent Provider Nurse Practitioner Family; PCP Nurse Practitioner Family; Visit Provider Physical Medicine & Rehabilitation
DX: M19.041 Primary osteoarthritis, right hand (principal); M19.042 Primary osteoarthritis, left hand
CPT/HCPCS: 36415; 82306; 82607; 82746; 84550; 86038; 86039; 86431

== ENCOUNTER 2025-01-30 09:46 | Outpatient (AMB) | payer OTHER, SELFPAY ==
[2025-01-30 09:50] VITALS: BMI 36.8
--- NOTE | 2025-01-30 09:50 | A.OFFVIS_ITS ---
Vital Signs 01/30/25 09:50 Height 5 ft 2 in Weight 201 lb BMI 36.8 Intake Visit Reasons: OV- Labs follow up/ RT CTS Intake Note: Brittany 54 yr old korean sepaking female presents today for her EMG review. Allergies No Known Allergies Allergy (Verified 01/30/25 09:52) Medication List - Last Reconciled 01/30/25 by Kim Dhaliwal MD atorvastatin 20 mg PO BEDTIME bupropion HCl XL 150 mg PO DAILY celecoxib (Celebrex) 200 mg PO BID 30 days clonidine HCl 0.1 mg PO .QD 90 days multivitamin 1 tab PO DAILY HPI Comments Details: Pain on wrists and forearms, even elbows, bilateral. She has numbness on all fingers. Points to right CMC as being painful, thinks maybe joint is sinking down . Denies weakness. No trauma or falls. EMG done 01/2022 bilateral mild-moderate CTS, test done by Dr. Pereira. She had injection more than a year, helped her partially 2-3 months. Repeat EMG done by ia 05/31/2024: IMPRESSION: 1. This is an abnormal study. 2. There is electrodiagnostic evidence for bilateral borderline/mild median neuropathy at the wrist, consistent with carpal tunnel syndrome. 3. There is no electrodiagnostic evidence for ulnar neuropathy, brachial plexopathy, or cervical radiculopathy. We have tried Carpal Tunnel Syndrome injections, 07/10/2024 for left side, 08/07/2024 for right side. Left side improved on first few days, lasting only maybe a month only. Right side is improved until now, still hurts but milder. Repeated EMG 12/06/2024: IMPRESSION: 1. This is a minimally abnormal study. 2. There is electrodiagnostic evidence for borderline/very mild median neuropathy at the wrist. 3. There is no electrodiagnostic evidence for ulnar neuropathy Sent her for labs. DARBY is positive. RF negative. [facility] Medical History (Updated 01/30/25 @ 10:04 by Kim Dhaliwal MD) Carpal tunnel syndrome on both sides Obesity (BMI 35.0-39.9 without comorbidity) External hemorrhoids Lower back pain Anxiety Intermittent palpitations Encounter to establish care Surgical History History of colonoscopy (~2021) Hx of section Hx of tubal ligation Family History Paternal Grandmother Esophageal cancer Son FH: mental illness Substance use disorder Social History Housing: House Alcohol intake: never Patient Tobacco Use Status: Former Tobacco user Tobacco use type: Cigarette Years Smoked: Infrequent e-Cigarette/Vaping Use: Never Used Second Hand Smoke Exposure: No service: No Current occupational status: employed 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 Negative carpal compression. Good ROM. Results Reviewed Results Reviewed: EMGs as above Assessment & Plan Assessment & Plan (1) Carpal tunnel syndrome of left wrist: Code(s): G56.02 - Carpal tunnel syndrome, left upper limb Category: Medical (2) Carpal tunnel syndrome of right wrist: Code(s): G56.01 - Carpal tunnel syndrome, right upper limb Category: Medical (3) Numbness in feet: Code(s): R20.0 - Anesthesia of skin Category: Medical (4) Positive DARBY (antinuclear antibody): Code(s): R76.8 - Other specified abnormal immunological findings in serum Category: Medical Plan 1. mild CTS, has had 3 EMGs over the years, continues to be symptomatic. Will refer to Dr. Tang for consideration of surgery. 2. positive DARBY, negative RF, positive family history of RA. Patient would like to be referred to rheumatology for further evaluation. 3. she says she also has feet numbness. Non diabetic per patient. Will schedule for EMG BLE. Assessment and plan discussed with patient, and patient was agreeable. All questions were answered thoroughly. Kim Dhaliwal MD, SAMUEL Board Certified, [place] Board of Physical Medicine and Rehabilitation (ABPMR) Board Certified, [place] Board of Electrodiagnostic Medicine (ABEM) Orders: Orders NE nerve conduction velocity Today R20.0 - Anesthesia of skin NE electromyogram (EMG) Today R20.0 - Anesthesia of skin Referrals Rheumatology Referral G56.01 - Carpal tunnel syndrome, right upper limb, G56.02 - Carpal tunnel syndrome, left upper limb, M19.90 - Unspecified osteoarthritis, unspecified site, R20.0 - Anesthesia of skin, R76.8 - Other specified abnormal immunological findings in serum Coding Level of Care Code Est Pt Level 4 (39204) Diagnoses Carpal tunnel syndrome of left wrist G56.02 Carpal tunnel syndrome of right wrist G56.01 Numbness in feet R20.0 Positive DARBY (antinuclear antibody) R76.8
--- OUTSIDE RECORDS SUMMARY | 2025-01-30 10:17 | XMS_ITS | Encounter Summary ---
Author Organization [employer] Address [address] [facility] [address]t [place] [address] Care Team Providers Care Sack Cleaning Hand Name Role Phone Unavailable Primary Care Provider Unavailabl e Encounter Details Date Type Department Care Team (Late st Contact Info) Description 12/30/2022 Abstract [facility] ADULT DENTAL [address] [place] [address] Ketty Greene [address] [place] [address] Social History Tobacco Use Types Packs/Day Years [...]
--- OUTSIDE RECORDS SUMMARY | 2025-01-30 10:17 | XMS_ITS | Encounter Summary ---
Author Organization [facility] [facility] Address [address] [facility] [address] [place] [address] Care Team Providers Care Finishing Trimmer Name Role Phone Unavailable Primary Care Provider Unavailabl e Encounter Details Date Type Department Care Team (Late st Contact Info) Description 12/30/2022 Abstract [facility] ADULT DENTAL [address] [place] [address] Boni Orta DDS [address] [place] [address] Social History Tobacco Use Types Packs/Day Years [...]
--- OUTSIDE RECORDS SUMMARY | 2025-01-30 10:17 | XMS_ITS | Patient Health Record ---
Author Organization [facility] Address [address] [place] [address] Care Team Providers Care Pyrotechnic Mixer Name Role Phone Nubia Duran Primary Care [...] Problem Status W/U Status Risk Notes Problem [id number] Rectal bleeding (K62.5) Active confirmed Plan Of Treatment Future Test Test Name Order Date COLONOSCOPY 04/20/2022 Insurance Providers Payer Name Payer Address Payer Phone Subscriber Number Group Number Insured Name Patient Relationship to Insured Coverage Start Date Coverage End Date [facility] [employer] [facility] [address] [address] [place], [place] [id number] EMILY SHERIFF Self - patient is the insured Medical (General) History Medical History History ICD Code Denies [place],DM,CVA,Lung disease,renal dise ase Surgical History Surgery Date(Month/Year) Varicose vein surgery section tubal ligation
--- OUTSIDE RECORDS SUMMARY | 2025-01-30 10:17 | XMS_ITS | Encounter Summary ---
Author Organization [employer] [facility] Address [address] [facility] 7t [place] [address] Care Team Providers Care Rehabilitation Specialist Name Role Phone Unavailable Primary Care Provider Unavailabl e Encounter Details Date Type Department Care Team (Late st Contact Info) Description 12/30/2022 Abstract [facility] ADULT DENTAL [address] [place] [address] Boni Orta DDS [address] [place] [address] Social History Tobacco Use Types Packs/Day Years [...]
--- OUTSIDE RECORDS SUMMARY | 2025-01-30 10:17 | XMS_ITS | Clinical Summary ---
Author Organization [facility] it Address [address] [place] [address] Care Team Providers Care Medical Record Librarian Name Role Phone Unavailable Primary Care Provider [...]
--- OUTSIDE RECORDS SUMMARY | 2025-01-30 10:17 | XMS_ITS | Encounter Summary ---
Author Organization [facility] [facility] Address [address] [facility] 7t [place] [address] Care Team Providers Care Business Database Analyst Name Role Phone Unavailable Primary Care Provider Unavailabl e Encounter Details Date Type Department Care Team (Late st Contact Info) Description 11/07/2022 Abstract [facility] ADULT DENTAL [address] [place] [address] Boni Orta DDS [address] [place] [address] Social History Tobacco Use Types Packs/Day Years [...]
--- OUTSIDE RECORDS SUMMARY | 2025-01-30 10:17 | XMS_ITS | Encounter Summary ---
Author Organization [facility] Address [address] [facility] [address]t [place] [address] Care Team Providers Care Secretary Book Keeper Name Role Phone Unavailable Primary Care Provider Unavailabl e Encounter Details Date Type Department Care Team (Late st Contact Info) Description 12/30/2022 Abstract [facility] ADULT DENTAL [address] [place] [address] Boni Orta DDS [address] [place] [address] Social History Tobacco Use Types Packs/Day Years [...]
--- OUTSIDE RECORDS SUMMARY | 2025-01-30 10:17 | XMS_ITS | Encounter Summary ---
Author Organization [facility] Address [address] [facility] [address] [place] [address] Care Team Providers Care Key Attendant Name Role Phone Unavailable Primary Care Provider Unavailabl e Encounter Details Date Type Department Care Team (Latest Contact Info) Description 09/27/2022 Abstract [facility] CONVERSIONS Dental, Provider, DDS Social History Tobacco [...]
--- OUTSIDE RECORDS SUMMARY | 2025-01-30 10:17 | XMS_ITS | Clinical Summary ---
Author Organization [employer] Address [address] [facility] [address] [place] [address] Care Team Providers Care Ham Sawyer Name Role Phone Unavailable Primary Care Provider [...]
== END 2025-01-30 10:05 | disposition home or self-care (01) ==
LOC: HO.HOS 09:47
PROVIDERS: PCP Nurse Practitioner Family; Visit Provider Physical Medicine & Rehabilitation
DX: G56.03 Carpal tunnel syndrome, bilateral upper limbs (principal); R20.0 Anesthesia of skin; R76.8 Other specified abnormal immunological findings in serum
CPT/HCPCS: 99214

== ENCOUNTER → 2025-01-30 09:46 | Outpatient (BNVA) | payer OTHER, SELFPAY | PROVIDERS: PCP Nurse Practitioner Family; Visit Provider Physical Medicine & Rehabilitation | DX: G56.03 Carpal tunnel syndrome, bilateral upper limbs (principal); M19.90 Unspecified osteoarthritis, unspecified site; R76.8 Other specified abnormal immunological findings in serum; R20.0 Anesthesia of skin | CPT/HCPCS: 99212 ==

== ENCOUNTER 2025-02-04 09:16 | Outpatient (AMB) | payer OTHER, SELFPAY ==
--- NOTE | 2025-02-04 09:29 | MHC.PC.OV ---
Vital Signs 02/04/25 09:36 Height 5 ft 2 in Weight 209 lb BMI 38.2 BP 138/78 Blood Pressure Location Rt brachial Position Sitting Respiration 13 Pulse 91 Pulse Source Pulse Oximeter Temp 97.3 F Temp Source Oral Pulse Oximetry (%) 98 Oxygen Delivery Method Room Air Intake Visit Reasons: Nov FU labs/med start Intake Note: Follow up, patient also c/o a bump on head and sometimes she feels it palpitating. Rehabilitation Program Coordinator Required: Yes Rehabilitation Program Coordinator Language: Fly Rail Operator Name: Maria Guadalupe Gomez [phone] Allergies No Known Allergies Allergy (Verified 02/04/25 09:50) Medication List - Last Reconciled 02/04/25 by Shelbi Jarquin, GSA COORDINATOR- atorvastatin 20 mg PO BEDTIME bupropion HCl XL 150 mg PO DAILY celecoxib (Celebrex) 200 mg PO BID 30 days clonidine HCl 0.1 mg PO .QD 90 days multivitamin 1 tab PO DAILY Tobacco use date assessed: 02/04/25 Dental Screening Dental Screen Date: 02/04/25 Did you have a dental visit in the last 12 months?: Yes Did you have a dental problem in the last 6 months where you did not have access to dental care?: No Was dental information given to patient?: Patient has dentist HPI HPI Comments History of Present Illness Details Rehabilitation Program Coordinator # [id number] 54 year-old Indonesian-speaking female with generalized anxiety disorder, hyperlipidemia, vitamin-D deficiency, obesity, median nerve neuropathy, venous insufficiency, perimenopause, IFG, DARBY , family hx cervical ca (sister x 2) Status post , tubal ligation Here today routine fu HLD - stopped taking statin - felt like it messed everything up Obesity/IFG - stopped taking Metformin as it caused diarrhea. Was also RXd bupropion, she is taking Buproprion. Wt increased. She is due for labs; ordered but did not have them done. Vit d def on MVI She cont to take clonidine, MVI and celebrex She is active w/ Dr Fuchs. Notes reviewed. New c/o scalp something sticking out ; midline, near forehead/hairline. Started a few weeks ago.Noticed incidentally while touching scalp. The areas comes and goes. Assoc w/ short lived jabbing sensation in this area. No alleviating or exacerbating sx. Sister x 2 dx w/ cervical ca. Wonders about screening for herself. Exam: Awake alert NAD PERRLA EOMI Normal scalp, no lesions, normal variance of skull - very mild depression in this area that is not clinically significant RRR LS CTAB Neuro exam benign Plan: Refill current meds Refer to Neuro and HABILITATION TRAINING SPECIALIST Labs today RTO for CPE, sooner PRN Total time spent caring for the patient today was 45 minutes. This includes time spent before the visit reviewing the chart, time spent during the visit, and time spent after the visit on documentation [facility] Medical History (Updated 02/04/25 @ 17:49 by ROMEO Dobbs-CHARLOTTE) Anxiety Carpal tunnel syndrome on both sides Encounter to establish care External hemorrhoids Intermittent palpitations Lower back pain Obesity (BMI 35.0-39.9 without comorbidity) Surgical History History of colonoscopy (~2021) Hx of section Hx of tubal ligation Family History Paternal Grandmother Esophageal cancer Son FH: mental illness Substance use disorder Social History Housing: House Alcohol intake: never Patient Tobacco Use Status: Former Tobacco user Tobacco use type: Cigarette Years Smoked: Infrequent e-Cigarette/Vaping Use: Never Used Second Hand Smoke Exposure: No service: No Current occupational status: employed 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 1. Little interest or pleasure in doing things: not at all 2. Feeling down, depressed, or hopeless: not at all 3. Trouble falling or staying asleep, or sleeping too much: not at all 4. Feeling tired or having little energy: not at all 5. Poor appetite or overeating: not at all 6. Feeling bad about yourself - or that you are a failure or have let yourself or your family down: not at all 7. Trouble concentrating on things, such as reading the newspaper or watching television: not at all 8. Moving or speaking so slowly that other people could have noticed. Or the opposite - being so fidgety or restless that you have been moving around a lot more than usual: not at all 9. Thoughts that you would be better off or of hurting yourself in some way: not at all Total score: 0 Depression Screening Interpretation: Negative Depression Screening Done: Yes 44933 - PHQ-9 Billing: Yes Source: Developed by Drs. Enzo Seay, Yadira Vargas, Hakeem Tinajero and colleagues, with an educational christine from [employer]. Thrive Questionnaire Date Thrive assessed: 02/04/25 I am a: Patient What is your living situation today?: I have a steady place to live Within the past 12 months, did the food you bought not last and you didn't have the money to get more?: Never true Within the past 12 months, did you worry whether your food would run out before you got money to buy more?: Never true Do you have trouble paying for medicines?: No Do you have trouble getting transportation to medical appointments?: No Do you have trouble paying your heating and electricity bill?: No Do you have trouble taking care of your child, family member or friend?: No Do you have trouble with day-to-day activities such as bathing, preparing meals, shopping, managing finances, etc.?: No Are you currently unemployed and looking for a job?: No Are you interested in more education?: No THRIVE Score: 0 AUDIT C Alcohol Use Questionnaire (AUDIT-C) 1. How often do you have a drink containing alcohol?: Never 3. How often do you have six or more drinks on one occasion?: Never Total Score: 0 Score Reviewed/Action Taken: Yes CLAIRE-7 AMB Questionnaire CLAIRE-7 Date CLAIRE - 7 assessed: 02/04/25 Feeling nervous, anxious, or on edge: 0 = Not at all Not being able to stop or control worryin = Not at all Worrying too much about different things: 0 = Not at all Trouble relaxin = Not at all Being so restless that it is hard to sit still: 0 = Not at all Becoming easily annoyed or irritable: 0 = Not at all Feeling afraid as if something awful might happen: 0 = Not at all Total CLAIRE-7 score (0-4 normal; 5-9 mild; 10-14 moderate; 15-21 severe): 0 Source: Developed by Drs. Enzo Seay, Yadira Vargas, Hakeem Tinajero and colleagues, with an educational christine from [employer]. CLAIRE-7 Assessment Billing CLAIRE-7 Assessment Tool: CLAIRE-7 Assessment 73042 Physical exam (Primary Care) Vital Signs: Last Vital Signs Temp 97.3 F 02/04/25 09:36 Pulse 91 02/04/25 09:36 Resp 13 02/04/25 09:36 BP 138/78 02/04/25 09:36 Pulse Ox 98 02/04/25 09:36 Oxygen Delivery Method Room Air 02/04/25 09:36 BMI result Body Mass Index 38.2 BMI Assessment/Plan discussion: High Tobacco/Smoking Status: Tobacco use Status Tobacco use date assessed 02/04/25 02/04/25 09:34 Patient Tobacco Use Status Former Tobacco user 02/04/25 09:30 Tobacco use type Cigarette 02/04/25 09:30 e-Cigarette/Vaping Use Never Used 02/04/25 09:30 PHQ-9: PHQ-9 Score PHQ-9: Total score 0 02/04/25 09:50 Depression Screening Interpretation: Negative Thrive Assessment: Date of Thrive Assessment Date Thrive assessed 02/04/25 02/04/25 09:30 Coding Level of Care Code Est Pt Level 5 (38497) Complex EM visit Add On G2211 Diagnoses Mixed hyperlipidemia E78.2 Hyperlipidemia type: mixed hyperlipidemia IFG (impaired fasting glucose) R73.01 Class 2 severe obesity due to excess calories with serious comorbidity and body mass index (BMI) of 35.0 to 35.9 in adult E66.01; Z68.35 Body mass index: BMI 35.0-35.9 Obesity classification: adult class 2 (BMI 35 - 39.9) Obesity type: due to excess calories Positive DARBY (antinuclear antibody) R76.8 Severe obesity with body mass index (BMI) of 36.0 to 36.9 with serious comorbidity E66.01; Z68.36 Nonintractable headache, unspecified chronicity pattern, unspecified headache type R51.9 Headache type: unspecified Headache chronicity pattern: unspecified pattern Intractability: not intractable Family history of cervical cancer Z80.49 CLAIRE (generalized anxiety disorder) F41.1 Low vitamin D level R79.89 Vitamin D deficiency E55.9 Additional Codes CLAIRE-7 Assessment Billing - CLAIRE-7 Assessment Tool: CLAIRE-7 Assessment 60945 ([id number]) PHQ-9 - 08067 - PHQ-9 Billing: Yes ([id number]) Assessment & Plan Assessment & Plan (1) Hyperlipidemia: Code(s): E78.5 - Hyperlipidemia, unspecified Category: Medical Qualifiers: Hyperlipidemia type: mixed hyperlipidemia Qualified Code(s): E78.2 - Mixed hyperlipidemia (2) IFG (impaired fasting glucose): Code(s): R73.01 - Impaired fasting glucose Category: Medical (3) Obesity with serious comorbidity: Comment: > 38 with IFG and HLD Code(s): E66.9 - Obesity, unspecified Category: Medical Qualifiers: Body mass index: BMI 35.0-35.9 Obesity classification: adult class 2 (BMI 35 - 39.9) Obesity type: due to excess calories Qualified Code(s): E66.01 - Morbid (severe) obesity due to excess calories; Z68.35 - Body mass index [BMI] 35.0-35.9, adult (4) Positive DARBY (antinuclear antibody): Code(s): R76.8 - Other specified abnormal immunological findings in serum Category: Medical (5) Severe obesity with body mass index (BMI) of 36.0 to 36.9 with serious comorbidity: Comment: with HLD & IFG Code(s): E66.01 - Morbid (severe) obesity due to excess calories; Z68.36 - Body mass index [BMI] 36.0-36.9, adult Category: Medical (6) Headache: Code(s): R51.9 - Headache, unspecified Category: Medical Qualifiers: Headache type: unspecified Headache chronicity pattern: unspecified pattern Intractability: not intractable Qualified Code(s): R51.9 - Headache, unspecified (7) Family history of cervical cancer: Comment: sister Code(s): Z80.49 - Family history of malignant neoplasm of other genital organs Category: Medical (8) CLAIRE (generalized anxiety disorder): Code(s): F41.1 - Generalized anxiety disorder Category: Medical (9) Low vitamin D level: Code(s): R79.89 - Other specified abnormal findings of blood chemistry Category: Medical (10) Vitamin D deficiency: Code(s): E55.9 - Vitamin D deficiency, unspecified Category: Medical Plan . Orders: Referrals Neurology Referral R51.9 - Headache, unspecified FORESTER AIDE Referral Z12.4 - Encounter for screening for malignant neoplasm of cervix, Z80.49 - Family history of malignant neoplasm of other genital organs Medications: Refilled bupropion HCl XL 150 mg PO DAILY 90 tabs 1RF celecoxib (Celebrex) 200 mg PO BID 60 caps 3RF 30 days clonidine HCl 0.1 mg PO .QD 90 tabs 1RF 90 days F41.1 - Generalized anxiety disorder Discontinued atorvastatin Discontinued Reason: Patient no longer taking 20 mg PO BEDTIME 90 tabs 1RF
[2025-02-04 09:36] VITALS: BP 138/78; PULSE 91; RESP 13; TEMP 36.3; O2SAT 98; BMI 38.2
--- OUTSIDE RECORDS SUMMARY | 2025-02-04 10:15 | XMS_ITS | Clinical Summary ---
Author Organization [facility] it Address [address] [place] [address] Care Team Providers Care Bilingual Research Interviewer Name Role Phone Unavailable Primary Care Provider [...] age to complete this topic Meningococcal B Vaccine Aged Out No l onger eligible based on patient's age to complete [...]
--- OUTSIDE RECORDS SUMMARY | 2025-02-04 10:15 | XMS_ITS | Encounter Summary ---
Author Organization [employer] [facility] Address [address] [facility] [address] [place] [address] Care Team Providers Care Switchboard Wire Worker Helper Name Role Phone Unavailable Primary Care Provider Unavailabl e Encounter Details Date Type Department Care Team (Late st Contact Info) Description 12/30/2022 Abstract [facility] ADULT DENTAL [address] [place] [address] Boni Orta DDS [address] [place] [address] Social History Tobacco Use Types Packs/Day Years [...]
--- OUTSIDE RECORDS SUMMARY | 2025-02-04 10:15 | XMS_ITS | Encounter Summary ---
Author Organization [employer] [facility] Address [address] [facility] 7[address] [place] [address] Care Team Providers Care Staffing Recruiter Name Role Phone Unavailable Primary Care Provider Unavailabl e Encounter Details Date Type Department Care Team (Late st Contact Info) Description 12/30/2022 Abstract [facility] ADULT DENTAL [address] [place] [address] Boni Orta DDS [address] [place] [address] Social History Tobacco Use Types Packs/Day Years [...]
--- OUTSIDE RECORDS SUMMARY | 2025-02-04 10:15 | XMS_ITS | Encounter Summary ---
Author Organization [employer] [facility] Address [address] [facility] [address]t [place] [address] Care Team Providers Care Project Specialist Name Role Phone Unavailable Primary Care Provider Unavailabl e Encounter Details Date Type Department Care Team (Late st Contact Info) Description 12/30/2022 Abstract [facility] ADULT DENTAL [address] [place] [address] Boni Orta DDS [address] [place] [address] Social History Tobacco Use Types Packs/Day Years [...]
--- OUTSIDE RECORDS SUMMARY | 2025-02-04 10:15 | XMS_ITS | Clinical Summary ---
Author Organization [employer] Address [address] [facility] 7t [place] [address] Care Team Providers Care Rougher Machine Operator Name Role Phone Unavailable Primary [...]
--- OUTSIDE RECORDS SUMMARY | 2025-02-04 10:15 | XMS_ITS | Patient Health Record ---
Author Organization [facility] Address [address] [place] [address] Care Team Providers Care Movie Critic Name Role Phone Nubia Duran Primary Care [...] Problem Status W/U Status Risk Notes Problem [id number] Rectal bleeding (K62.5) Active confirmed Plan Of Treatment Future Test Test Name Order Date COLONOSCOPY 04/20/2022 Insurance Providers Payer Name Payer Address Payer Phone Subscriber Number Group Number Insured Name Patient Relationship to Insured Coverage Start Date Coverage End Date [facility] [employer] [facility] [address] [address] [place], [place] [id number] EMILY SHERIFF Self - patient is the insured Medical (General) History Medical History History ICD Code Denies [place],DM,CVA,Lung disease,renal dise ase Surgical History Surgery Date(Month/Year) Varicose vein surgery section tubal ligation
--- OUTSIDE RECORDS SUMMARY | 2025-02-04 10:15 | XMS_ITS | Encounter Summary ---
Author Organization [email or web address] [facility] Address [address] [facility] [address]t [place] [address] Care Team Providers Care Professor Of Kinesiology Name Role Phone Unavailable Primary Care Provider Unavailabl e Encounter Details Date Type Department Care Team (Late st Contact Info) Description 11/07/2022 Abstract [facility] ADULT DENTAL [address] [place] [address] Boni Orta DDS [address] [place] [address] Social History Tobacco Use Types Packs/Day Years [...]
--- OUTSIDE RECORDS SUMMARY | 2025-02-04 10:15 | XMS_ITS | Encounter Summary ---
Author Organization [employer] Address [address] [facility] [address] [place] [address] Care Team Providers Care Booking Clerk Name Role Phone Unavailable Primary Care Provider Unavailabl e Encounter Details Date Type Department Care Team (Late st Contact Info) Description 12/30/2022 Abstract [facility] ADULT DENTAL [address] [place] [address] Ketty Greene [address] [place] [address] Social History Tobacco Use Types Packs/Day Years [...]
--- OUTSIDE RECORDS SUMMARY | 2025-02-04 10:15 | XMS_ITS | Encounter Summary ---
Author Organization [employer] [facility] Address [address] [facility] [address] [place] [address] Care Team Providers Care Floorworker Lasting Name Role Phone Unavailable Primary Care Provider Unavailabl e Encounter Details Date Type Department Care Team (Latest Contact Info) Description 09/27/2022 Abstract [facility] CONVERSIONS Dental, Provider, DDS Social History [...]
== END 2025-02-04 10:12 | disposition home or self-care (01) ==
LOC: HO.HMCFM 09:16
PROVIDERS: PCP Nurse Practitioner Family; Visit Provider Nurse Practitioner Family
DX: E78.2 Mixed hyperlipidemia (principal); R73.01 Impaired fasting glucose; E66.01 Morbid (severe) obesity due to excess calories; Z68.35 Body mass index [BMI] 35.0-35.9, adult; R76.8 Other specified abnormal immunological findings in serum; Z68.36 Body mass index [BMI] 36.0-36.9, adult; R51.9 Headache, unspecified; Z80.49 Family history of malignant neoplasm of other genital organs; F41.1 Generalized anxiety disorder; R79.89 Other specified abnormal findings of blood chemistry; E55.9 Vitamin D deficiency, unspecified

== ENCOUNTER → 2025-02-04 09:16 | Outpatient (BNVA) | payer OTHER, SELFPAY | PROVIDERS: PCP Nurse Practitioner Family; Visit Provider Nurse Practitioner Family | DX: F41.1 Generalized anxiety disorder (principal); E78.5 Hyperlipidemia, unspecified; E55.9 Vitamin D deficiency, unspecified; G62.9 Polyneuropathy, unspecified; I87.2 Venous insufficiency (chronic) (peripheral); E78.2 Mixed hyperlipidemia; R73.01 Impaired fasting glucose; E66.01 Morbid (severe) obesity due to excess calories; R76.8 Other specified abnormal immunological findings in serum; R51.9 Headache, unspecified; R79.89 Other specified abnormal findings of blood chemistry; Z80.49 Family history of malignant neoplasm of other genital organs; Z68.36 Body mass index [BMI] 36.0-36.9, adult; Z87.891 Personal history of nicotine dependence | CPT/HCPCS: 96127; 99212 ==

== ENCOUNTER 2025-02-05 08:47 | Outpatient (AMB) | payer OTHER, SELFPAY ==
--- NOTE | 2025-02-05 08:53 | MHC.OFFVIS ---
Intake Visit Reasons: New Prob: Right hand CTS Intake Note: Brittany is a 53 year old right hand dominant female who presents today for a new problem visit for evaluation of her right hand CTS. Hx of EMG done on 05/31/24 and repeated on 01/09/25 which shows no changes from previous EMG/NCS. Chief Of Field Operations Required: Yes Chief Of Field Operations Name: [id number] Allergies No Known Allergies Allergy (Verified 02/04/25 09:50) HPI HPI New Prob: Right hand CTS: Details: Brittany is a 53 year old right hand dominant female who presents today for a new problem visit for evaluation of her bilateral hand CTS. Hx of EMG done on 05/31/24 and repeated on 01/09/25 which shows no changes from previous EMG/NCS. [facility] Medical History (Updated 02/04/25 @ 17:49 by ROMEO Dobbs-CHARLOTTE) Carpal tunnel syndrome on both sides Obesity (BMI 35.0-39.9 without comorbidity) External hemorrhoids Lower back pain Anxiety Intermittent palpitations Encounter to establish care Surgical History History of colonoscopy (~2021) Hx of section Hx of tubal ligation Family History Paternal Grandmother Esophageal cancer Son FH: mental illness Substance use disorder Social History Housing: House Alcohol intake: never Patient Tobacco Use Status: Former Tobacco user Tobacco use type: Cigarette Years Smoked: Infrequent e-Cigarette/Vaping Use: Never Used Second Hand Smoke Exposure: No service: No Current occupational status: employed 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 Good APB muscle firing and good finger cross. Vascular: Capillary refill brisk. ROM: Patient can make a fist and extend all their digits. Skin: No lacerations or abrasions noted. General: No ecchymosis. No erythema or evidence of infection. Assessment & Plan Assessment & Plan (1) Carpal tunnel syndrome of left wrist: Code(s): G56.02 - Carpal tunnel syndrome, left upper limb Category: Medical (2) Carpal tunnel syndrome of right wrist: Code(s): G56.01 - Carpal tunnel syndrome, right upper limb Category: Medical Plan 1. Carpal tunnel syndrome, left Constant, daily, worse at night I educated the patient about the condition. I discussed both operative and nonoperative treatment options. The patient would like to proceed with surgery. The risks and benefits of operative treatment were discussed with the patient and the patient wishes to proceed with surgery. These risks include, but are not limited to, risk of damage to blood vessels, nerves, tendons, infection, recurrence, incomplete relief of preoperative symptoms, persistent pain, possible need for further surgery, and the risks associated with regional blocks and/or anesthesia. Plan is to take the patient to the operating room at some point in the next few weeks for the following procedures: 1. Left carpal tunnel release under local All of the preoperative paperwork including the consent was discussed today. All of the patient's questions were answered in the clinic today. The patient understands that they will be in contact with our surgical garment assembly supervisor to discuss scheduling their procedure. Patient denies diabetes, blood thinners, asthma, heart issues, lung issues, kidney issues, or current smoking. 2. Right carpal tunnel syndrome Intermittent, daily, worse at night Patient would like to proceed with operative intervention of the left prior to any intervention of the right Patient was educated that if she is recovering well at her postoperative appointment from left carpal tunnel release, we can get signed up for right-sided carpal tunnel surgery Patient was amenable to this plan Coding Level of Care Code Est Pt Level 4 (42629) Diagnoses Carpal tunnel syndrome of left wrist G56.02 Carpal tunnel syndrome of right wrist G56.01
--- OUTSIDE RECORDS SUMMARY | 2025-02-05 09:08 | XMS_ITS | Encounter Summary ---
Author Organization [employer] Address [address] [facility] [address] [place] [address] Care Team Providers Care Software Test Engineer Name Role Phone Unavailable Primary Care Provider Unavailabl e Encounter Details Date Type Department Care Team (Late st Contact Info) Description 12/30/2022 Abstract [facility] ADULT DENTAL [address] [place] [address] Ketty Greene [address] [place] [address] Social History Tobacco Use Types Packs/Day Years [...]
--- OUTSIDE RECORDS SUMMARY | 2025-02-05 09:08 | XMS_ITS | Encounter Summary ---
Author Organization [facility] Address [address] [facility] [address] [place] [address] Care Team Providers Care Shipsmith Name Role Phone Unavailable Primary Care Provider Unavailabl e Encounter Details Date Type Department Care Team (Late st Contact Info) Description 12/30/2022 Abstract [facility] ADULT DENTAL [address] [place] [address] Boni Orta DDS [address] [place] [address] Social History Tobacco Use Types Packs/Day Years [...]
--- OUTSIDE RECORDS SUMMARY | 2025-02-05 09:08 | XMS_ITS | Encounter Summary ---
Author Organization [employer] [facility] Address [address] 7t [place] [address] Care Team Providers Care Fork Truck Operator Name Role Phone Unavailable Primary Care Provider Unavailabl e Encounter Details Date Type Department Care Team (Late st Contact Info) Description 11/07/2022 Abstract [facility] ADULT DENTAL [address] [place] [address] Boni Orta DDS [address] [place] [address] Social History Tobacco Use Types Packs/Day Years [...]
--- OUTSIDE RECORDS SUMMARY | 2025-02-05 09:08 | XMS_ITS | Encounter Summary ---
Author Organization [facility] Address [address] 7t [place] [address] Care Team Providers Care Coil Taper Name Role Phone Unavailable Primary Care Provider Unavailabl e Encounter Details Date Type Department Care Team (Latest Contact Info) Description 09/27/2022 Abstract [facility] CONVERSIONS Dental, Provider, DDS Social History [...]
--- OUTSIDE RECORDS SUMMARY | 2025-02-05 09:08 | XMS_ITS | Clinical Summary ---
Author Organization [employer] Address [address] [facility] 7t [place] [address] Care Team Providers Care Literary Writer Name Role Phone Unavailable Primary Care Provider [...]
--- OUTSIDE RECORDS SUMMARY | 2025-02-05 09:08 | XMS_ITS | Patient Health Record ---
Author Organization [facility] Address [address] [place] [address] Care Team Providers Care Automotive Tire Technician Name Role Phone Nubia Duran Primary Care Provider Mynor Brewer Jr Unavailable [phone] Allergies No Known Allergies Reason For Referral [...] Problem Status W/U Status Risk Notes Problem [id number] Rectal bleeding (K62.5) Active confirmed Plan Of Treatment Future Test Test Name Order Date COLONOSCOPY 04/20/2022 Insurance Providers Payer Name Payer Address Payer Phone Subscriber Number Group Number Insured Name Patient Relationship to Insured Coverage Start Date Coverage End Date [facility] [employer] [facility] [address] [address] [place], [place] [id number] EMILY SHERIFF Self - patient is the insured Medical (General) History Medical History History ICD Code Denies NM,DM,CVA,Lung disease,renal dise ase Surgical History Surgery Date(Month/Year) Varicose vein surgery section tubal ligation
--- OUTSIDE RECORDS SUMMARY | 2025-02-05 09:08 | XMS_ITS | Encounter Summary ---
Author Organization [employer] [facility] Address [address] [facility] 7t [place] [address] Care Team Providers Care Larriman Name Role Phone Unavailable Primary Care Provider Unavailabl e Encounter Details Date Type Department Care Team (Late st Contact Info) Description 12/30/2022 Abstract [facility] ADULT DENTAL [address] [place] [address] Boni Orta DDS [address] [place] [address] Social History Tobacco Use Types Packs/Day Years [...]
--- OUTSIDE RECORDS SUMMARY | 2025-02-05 09:08 | XMS_ITS | Encounter Summary ---
Author Organization [facility] Address [address] [facility] 7t [place] [address] Care Team Providers Care Vocational Aide Name Role Phone Unavailable Primary Care Provider Unavailabl e Encounter Details Date Type Department Care Team (Late st Contact Info) Description 12/30/2022 Abstract [facility] ADULT DENTAL [address] [place] [address] Boni Orta DDS [address] [place] [address] Social History Tobacco Use Types Packs/Day Years [...]
--- OUTSIDE RECORDS SUMMARY | 2025-02-05 09:08 | XMS_ITS | Clinical Summary ---
Author Organization [facility] Address [address] [place] [address] Care Team Providers Care Motor Rebuilder Name Role Phone Unavailable Primary Care Provider [...]
== END 2025-02-05 09:28 | disposition home or self-care (01) ==
LOC: HO.HOS 08:47
PROVIDERS: PCP Nurse Practitioner Family
DX: G56.03 Carpal tunnel syndrome, bilateral upper limbs (principal)
CPT/HCPCS: 99214

== ENCOUNTER → 2025-02-05 08:47 | Outpatient (BNVA) | payer OTHER, SELFPAY | PROVIDERS: PCP Nurse Practitioner Family | DX: G56.03 Carpal tunnel syndrome, bilateral upper limbs (principal) | CPT/HCPCS: 99212 ==

== ENCOUNTER 2025-03-05 09:56 | Outpatient (REF) | payer OTHER, SELFPAY ==
--- NOTE | ~2025-03-05 | XR_ITS ---
EXAMINATION: XR LUMBAR SPINE 2-3 VIEWS HISTORY: M54.9 - Dorsalgia, unspecified COMPARISON: Comparison is made with the prior examination dated 05/18/2022. FINDINGS: AP, lateral, and coned down views of the lumbar spine are submitted. Osseous mineralization is normal. Five nonrib-bearing lumbar vertebral bodies are identified, maintaining normal height and alignment without evidence of fracture or spondylolisthesis. There is mild anterior spurring at multiple levels. The intervertebral disc spaces are preserved. The posterior elements are intact. The visualized paraspinal soft tissues are unremarkable. XR/XR lumbar spine 2-3V IMPRESSION: Mild degenerative disc disease. Electronically signed by: Enzo Devi MD 03/05/2025 10:56 AM EDT
--- NOTE | 2025-03-05 09:58 | EMG_ITS ---
Chief complaint: Numbness and cramps in lower extremities, occasional/intermittent. At 1st patient denied lower back pain, and then later said she does get occasional severe episodes of lower back pain. Reason for referral: Evaluate for neuropathy Procedure done: Bilateral lower extremity NCS/EMG Precautions and/or limitations: None Bengali speaking, seen with battery assembler dry cell. The limb temperature was monitored continuously and remained between 32-36 degrees C during the performance of the NCS. Nerve Conduction Studies Anti Sensory Summary Table ?Stim Site NR Onset (ms) Norm Onset (ms) Peak (ms) Norm Peak (ms) O-P Amp (?V) Norm O-P Amp Site1 Site2 Delta-0 (ms) Dist (cm) Keyur (m/s) Norm Keyur (m/s) Left Sural Anti Sensory (Lat Mall) Calf ? 2.5 3.1 <4.0 9.3 >5.0 Calf Lat Mall 2.5 14.0 56 Right Sural Anti Sensory (Lat Mall) Calf ? 2.8 3.4 <4.0 5.4 >5.0 Calf Lat Mall 2.8 14.0 50 Motor Summary Table ?Stim Site NR Onset (ms) Norm Onset (ms) O-P Amp (mV) Norm O-P Amp iAmp (mV) Amp (1st) (%) Site1 Site2 Delta-0 (ms) Dist (cm) Keyur (m/s) Norm Keyur (m/s) Right Peroneal Motor (Ext Dig Brev) Ankle ? 3.4 <4.0 4.8 >2.5 5.5 100.0 Ankle Ext Dig Brev 3.4 0.0 B Fib ? 8.4 4.4 4.9 91.7 B Fib Ankle 5.0 26.0 52 >40 Poplt ? 9.1 4.2 4.7 87.5 Poplt B Fib 0.7 5.5 79 >40 Left Tibial Motor (Abd Payan Brev) Ankle ? 3.6 <5 8.6 >2.5 12.2 100.0 Ankle Abd Payan Brev 3.6 0.0 Knee ? 10.6 4.6 6.1 53.5 Knee Ankle 7.0 31.0 44 >40 Right Tibial Motor (Abd Payan Brev) Ankle ? 3.8 <5 5.5 >2.5 8.1 100.0 Ankle Abd Payan Brev 3.8 0.0 Knee ? 9.7 3.1 4.2 56.4 Knee Ankle 5.9 33.0 56 >40 EMG ?Side Muscle Nerve Root Ins Act Fibs Psw Amp Dur Poly Recrt Int Pat Comment Right AbdHallucis MedPlantar S1-2 Nml Nml Nml Nml Nml 0 Nml Complete Right AntTibialis Dp Br Peron L4-5 Nml Nml Nml Nml Nml 0 Nml Complete Right PostTibialis Tibial L5, S1 Nml Nml Nml Nml Nml 0 Nml Complete Right MedGastroc Tibial S1-2 Nml Nml Nml Nml Nml 0 Nml Complete Right VastusMed Femoral L2-4 Nml Nml Nml Nml Nml 0 Nml Complete Left AbdHallucis MedPlantar S1-2 Nml Nml Nml Nml Nml 0 Nml Complete Left AntTibialis Dp Br Peron L4-5 Nml Nml Nml Nml Nml 0 Nml Complete Left PostTibialis Tibial L5, S1 Nml Nml Nml Nml Nml 0 Nml Complete Left MedGastroc Tibial S1-2 Incr 1+ 1+ Nml Nml 0 Nml Complete Left VastusMed Femoral L2-4 Nml Nml Nml Nml Nml 0 Nml Complete Paraspinal EMG ?Side Muscle Nerve Root Ins Act Fibs Psw Comment Right Lumbar Upper Rami Nml Nml Nml Right Lumbar Mid Rami Nml Nml Nml Right Lumbar Lower Rami Nml Nml Nml Left Lumbar Upper Rami Nml Nml Nml Left Lumbar Mid Rami Nml Nml Nml Left Lumbar Lower Rami Incr 1+ 1+ FINDINGS: All motor and sensory nerves tested showed normal latencies, amplitudes and conduction velocities. Concentric needle EMG was performed in selected muscles of the bilateral lower extremities and lumbar paraspinals. Study revealed signs of electric abnormalities as shown in the table above. Left medial gastrocnemius showed increased duration and amplitude. Left lower lumbar paraspinals showed increased insertional activity, small PSWs and fibrillations. IMPRESSION: 1. This is an abnormal study. 2. There are electrodiagnostic findings suggestive of left chronic L5-S1 radiculopathy. 3. There is no electrodiagnostic evidence for peroneal neuropathy, tibial neuropathy, lumbosacral plexopathy, or peripheral neuropathy. CLINICAL COMMENT: Sending patient for lumbar x-rays today. Further follow up with me in physiatry. Thank you for your kind referral. Kim Dhaliwal MD, SAMUEL Board Certified, [place] Board of Physical Medicine and Rehabilitation (ABPMR) Board Certified, [place] Board of Electrodiagnostic Medicine (ABEM) CODIN 41487 x2 MTDD
--- OUTSIDE RECORDS SUMMARY | 2025-03-05 10:57 | XMS_ITS | Encounter Summary ---
Author Organization [employer] Address [address] [facility] 7t [place] [address] Care Team Providers Care Solid State Tester Name Role Phone Unavailable Primary Care Provider Unavailabl e Encounter Details Date Type Department Care Team (Late st Contact Info) Description 12/30/2022 Abstract [facility] ADULT DENTAL [address] [place] [address] Ketty Greene [address] [place] [address] Social History Tobacco Use Types Packs/Day Years [...]
--- OUTSIDE RECORDS SUMMARY | 2025-03-05 10:57 | XMS_ITS | Encounter Summary ---
Author Organization [employer] Address [address] [facility] 7t [place] [address] Care Team Providers Care Ingot Supervisor Name Role Phone Unavailable Primary Care Provider Unavailabl e Encounter Details Date Type Department Care Team (Latest Contact Info) Description 09/27/2022 Abstract [facility] CONVERSIONS Dental, Provider, DDS Social History [...]
--- OUTSIDE RECORDS SUMMARY | 2025-03-05 10:57 | XMS_ITS | Patient Health Record ---
Author Organization [facility] Address [address] [place] [address] Care Team Providers Care Storage Worker Name Role Phone Nubia Duran Primary Care Provider Mynor Brewer Jr Unavailable [phone] Allergies No Known Allergies Reason For Referral [...] Problem Status W/U Status Risk Notes Problem [id number] Rectal bleeding (K62.5) Active confirmed Plan Of Treatment Future Test Test Name Order Date COLONOSCOPY 04/20/2022 Insurance Providers Payer Name Payer Address Payer Phone Subscriber Number Group Number Insured Name Patient Relationship to Insured Coverage Start Date Coverage End Date [facility] [address] [address] [place], [place] [id number] EMILY SHERIFF Self - patient is the insured Medical (General) History Medical History History ICD Code Denies CT,DM,CVA,Lung disease,renal dise ase Surgical History Surgery Date(Month/Year) Varicose vein surgery section tubal ligation
--- OUTSIDE RECORDS SUMMARY | 2025-03-05 10:57 | XMS_ITS | Encounter Summary ---
Author Organization [employer] Address [address] [address]t [place] [address] Care Team Providers Care Ribbon Cleaner Name Role Phone Unavailable Primary Care Provider Unavailabl e Encounter Details Date Type Department Care Team (Late st Contact Info) Description 11/07/2022 Abstract [facility] ADULT DENTAL [address] [place] [address] Boni Orta DDS [address] [place] [address] Social History Tobacco Use Types Packs/Day Years [...]
--- OUTSIDE RECORDS SUMMARY | 2025-03-05 10:57 | XMS_ITS | Encounter Summary ---
Author Organization [employer] Address [address] [facility] 7t [place] [address] Care Team Providers Care Forestry And Wildlife Manager Name Role Phone Unavailable Primary Care Provider Unavailabl e Encounter Details Date Type Department Care Team (Late st Contact Info) Description 12/30/2022 Abstract [facility] ADULT DENTAL [address] [place] [address] Boni Orta DDS [address] [place] [address] Social History Tobacco Use Types Packs/Day Years [...]
--- OUTSIDE RECORDS SUMMARY | 2025-03-05 10:57 | XMS_ITS | Clinical Summary ---
Author Organization [employer] Address [address] [facility] [place] [facility] [address]t [place] [address] Care Team Providers Care Shop Steward Name Role Phone Unavailable Primary Care Provider [...]
--- OUTSIDE RECORDS SUMMARY | 2025-03-05 10:57 | XMS_ITS | Encounter Summary ---
Author Organization [employer] Address [address] [facility] [address]t [place] [address] Care Team Providers Care Powder Worker Tnt Name Role Phone Unavailable Primary Care Provider Unavailabl e Encounter Details Date Type Department Care Team (Late st Contact Info) Description 12/30/2022 Abstract [facility] ADULT DENTAL [address] [place] [address] Boni Orta DDS [address] [place] [address] Social History Tobacco Use Types Packs/Day Years [...]
--- OUTSIDE RECORDS SUMMARY | 2025-03-05 10:57 | XMS_ITS | Encounter Summary ---
Author Organization [employer] Address [address] [facility] 7t [place] [address] Care Team Providers Care Motor Adjuster Name Role Phone Unavailable Primary Care Provider Unavailabl e Encounter Details Date Type Department Care Team (Late st Contact Info) Description 12/30/2022 Abstract [facility] ADULT DENTAL [address] [place] [address] Boni Orta DDS [address] [place] [address] Social History Tobacco Use Types Packs/Day Years [...]
== END 2025-03-05 09:57 | disposition home or self-care (01) ==
LOC: HO.NEURO 09:56
PROVIDERS: PCP Nurse Practitioner Family; Visit Provider Physical Medicine & Rehabilitation
DX: R20.0 Anesthesia of skin (principal); M54.9 Dorsalgia, unspecified
CPT/HCPCS: 72100; 95886; 95909

== ENCOUNTER → 2025-03-05 09:58 | Outpatient (BNV) | payer OTHER, SELFPAY | PROVIDERS: PCP Nurse Practitioner Family; Visit Provider Physical Medicine & Rehabilitation | DX: M54.16 Radiculopathy, lumbar region (principal) | CPT/HCPCS: 95886; 95909 ==

== ENCOUNTER → 2025-03-05 10:28 | Outpatient (BNV) | payer OTHER, SELFPAY | PROVIDERS: PCP Nurse Practitioner Family; Visit Provider Radiology Diagnostic Radiology | DX: M54.50 Low back pain, unspecified (principal) | CPT/HCPCS: 72100 ==

== ENCOUNTER 2025-03-13 12:08 | Outpatient (AMB) | payer OTHER, SELFPAY ==
--- NOTE | 2025-03-13 12:40 | AM.OFFWIN_ITS ---
Intake Vital Signs 03/13/25 12:42 Weight 206 lb BP 134/80 Blood Pressure Location Lt brachial Position Sitting Pulse 74 Pulse Source Pulse Oximeter Pulse Oximetry (%) 97 Oxygen Delivery Method Room Air Intake Visit Reasons: EP severe headaches and 3 weeks w/menstrual period Intake Note: Patient here for severe headaches and menstrual cycle for 3 weeks. Patient Tobacco Use Status: Former Tobacco user Allergies No Known Allergies Allergy (Verified 03/13/25 12:47) Do you need a note to return to daycare/school/sports/work: No HPI HPI Comments History of Present Illness Details 54 y/o Female patient who presents to [facility] walk [facility] with c/o Vaginal Bleeding associated with Headaches for 3 weeks. Reports changing 2-3 Briefs (uses Incontinence briefs) every hour - sometimes Blood soaks through her clothings. Usually her periods are regular and only lasts 3-4 days, medium to light flow. Last PAP smear done in 2021 ( NILM -ve HPV). She does have an appointment with [facility] - but does not remember the date. [facility] Medical History (Updated 03/13/25 @ 13:24 by Kimmy De Dios NP) Abnormal uterine bleeding Carpal tunnel syndrome on both sides Obesity (BMI 35.0-39.9 without comorbidity) External hemorrhoids Lower back pain Anxiety Intermittent palpitations Encounter to establish care Surgical History History of colonoscopy (~2021) Hx of section Hx of tubal ligation Family History (Reviewed 04/24/24 @ 08:31 by Shelbi Jarquin, [facility]) Paternal Grandmother Esophageal cancer Son FH: mental illness Substance use disorder Social History Housing: House Alcohol intake: never Patient Tobacco Use Status: Former Tobacco user Tobacco use type: Cigarette Years Smoked: Infrequent e-Cigarette/Vaping Use: Never Used Second Hand Smoke Exposure: No service: No Current occupational status: employed 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 Current occupational exposures/hazards: No Cognitive needs: No Hearing needs: No Vision needs: Yes (glasses) Review of Systems Const All systems reviewed & are unremarkable except as noted in HPI and below Physical Exam Vital Signs: Last Vital Signs Pulse 74 03/13/25 12:42 BP 134/80 03/13/25 12:42 Pulse Ox 97 03/13/25 12:42 Oxygen Delivery Method Room Air 03/13/25 12:42 Const General: no acute distress Nutritional Appearance: overweight Orientation/consciousness: patient oriented x3 Limitations: language barrier Resp Effort & Inspection: normal respiratory effort Auscultation: clear to auscultation bilaterally Cardio Heart sounds: S1 normal heart sound present and S2 normal heart sound present Other: Pelvic Exam deferred due to active bleeding. Neuro General: patient oriented x3 Psych Speech and movement: Normal speech and movement present Assessment & Plan Assessment & Plan (1) Abnormal uterine bleeding: Code(s): N93.9 - Abnormal uterine and vaginal bleeding, unspecified Plan: [facility] [facility] [facility] Appointment scheduled for 04/2025. Advised Patient to call them and see if she can be seen sooner. Ordered Pelvic U/S Ordered TXA Advised to go to ED if Bleeding continues. Orders: Orders US pelvic and transvaginal Today N93.9 - Abnormal uterine and vaginal bleeding, unspecified Medications: New tranexamic acid 650 mg PO TID 15 tabs 0RF 5 days N93.9 - Abnormal uterine and vaginal bleeding, unspecified Coding Level of Care Code Est Pt Level 4 (33521) Diagnoses Abnormal uterine bleeding N93.9 Time Spent (min) 20
[2025-03-13 12:42] VITALS: BP 134/80; PULSE 74; O2SAT 97
--- OUTSIDE RECORDS SUMMARY | 2025-03-13 13:05 | XMS_ITS | Encounter Summary ---
Author Organization [employer] Address [address] [facility] 7t [place] [address] Care Team Providers Care Staffing Clerk Name Role Phone Unavailable Primary Care Provider Unavailabl e Encounter Details Date Type Department Care Team (Late st Contact Info) Description 12/30/2022 Abstract [facility] ADULT DENTAL [address] [place] [address] Boni Orta DDS [address] [place] [address] Social History Tobacco Use Types Packs/Day Years [...]
--- OUTSIDE RECORDS SUMMARY | 2025-03-13 13:05 | XMS_ITS | Encounter Summary ---
Author Organization [employer] Address [address] [facility] [address]t [place] [address] Care Team Providers Care Singer Songwriter Name Role Phone Unavailable Primary Care Provider Unavailabl e Encounter Details Date Type Department Care Team (Late st Contact Info) Description 12/30/2022 Abstract [facility] ADULT DENTAL [address] [place] [address] Boni Orta DDS [address] [place] [address] Social History Tobacco Use Types Packs/Day Years [...]
--- OUTSIDE RECORDS SUMMARY | 2025-03-13 13:05 | XMS_ITS | Encounter Summary ---
Author Organization [employer] Address [address] [facility] [address]t [place] [address] Care Team Providers Care Advisory Application Developer Name Role Phone Unavailable Primary Care Provider Unavailabl e Encounter Details Date Type Department Care Team (Latest Contact Info) Description 09/27/2022 Abstract [facility] CONVERSIONS Dental, Provider, DDS Social History Tobacco [...]
--- OUTSIDE RECORDS SUMMARY | 2025-03-13 13:05 | XMS_ITS | Clinical Summary ---
Author Organization [facility] Address [address] [place] [address] Care Team Providers Care Information Management Officer Name Role Phone Unavailable Primary Care Provider [...] - 2023-2 5 season) 2024 Influenza Vaccine (Season Ended) 2025 HIB Vaccines Aged Out No longer eligi [...]
--- OUTSIDE RECORDS SUMMARY | 2025-03-13 13:05 | XMS_ITS | Encounter Summary ---
Author Organization [employer] Address [address] [facility] [address]t [place] [address] Care Team Providers Care Environmental Health Technologist Name Role Phone Unavailable Primary Care Provider Unavailabl e Encounter Details Date Type Department Care Team (Late st Contact Info) Description 12/30/2022 Abstract [facility] ADULT DENTAL [address] [place] [address] Boni Orta DDS [address] [place] [address] Social History Tobacco Use Types Packs/Day Years [...]
--- OUTSIDE RECORDS SUMMARY | 2025-03-13 13:05 | XMS_ITS | Clinical Summary ---
Author Organization [employer] Address [address] [facility] [address] [place] [address] Care Team Providers Care Divorce Attorney Name Role Phone Unavailable Primary Care [...]
--- OUTSIDE RECORDS SUMMARY | 2025-03-13 13:05 | XMS_ITS | Encounter Summary ---
Author Organization [employer] Address [address] [facility] [address]t [place] [address] Care Team Providers Care Senior Technical Manager Name Role Phone Unavailable Primary Care Provider Unavailabl e Encounter Details Date Type Department Care Team (Late st Contact Info) Description 11/07/2022 Abstract [facility] ADULT DENTAL [address] [place] [address] Boni Orta DDS [address] [place] [address] Social History Tobacco Use Types Packs/Day Years [...]
--- OUTSIDE RECORDS SUMMARY | 2025-03-13 13:05 | XMS_ITS | Patient Health Record ---
Author Organization [facility] Address [address] [place] [address] Care Team Providers Care Electronic Data Processing Auditor Name Role Phone Nubia Duran Primary Care [...] Problem Status W/U Status Risk Notes Problem [id number] Rectal bleeding (K62.5) Active confirmed Plan Of Treatment Future Test Test Name Order Date COLONOSCOPY 04/20/2022 Insurance Providers Payer Name Payer Address Payer Phone Subscriber Number Group Number Insured Name Patient Relationship to Insured Coverage Start Date Coverage End Date [facility] [address] [address] [place], [place] [id number] EMILY SHERIFF Self - patient is the insured Medical (General) History Medical History History ICD Code Denies [place],DM,CVA,Lung disease,renal dise ase Surgical History Surgery Date(Month/Year) Varicose vein surgery section tubal ligation
--- OUTSIDE RECORDS SUMMARY | 2025-03-13 13:05 | XMS_ITS | Encounter Summary ---
Author Organization [employer] Address [address] [facility] [address]t [place] [address] Care Team Providers Care Receivable Clerk Name Role Phone Unavailable Primary Care Provider Unavailabl e Encounter Details Date Type Department Care Team (Late st Contact Info) Description 12/30/2022 Abstract [facility] ADULT DENTAL [address] [place] [address] Ketty Greene [address] [place] [address] Social History Tobacco Use Types Packs/Day Years [...]
== END 2025-03-13 13:46 | disposition home or self-care (01) ==
PROVIDERS: PCP Nurse Practitioner Family; Visit Provider Nurse Practitioner Family
DX: N93.9 Abnormal uterine and vaginal bleeding, unspecified (principal)

== ENCOUNTER → 2025-03-13 12:08 | Outpatient (BNVA) | payer OTHER, SELFPAY | PROVIDERS: PCP Nurse Practitioner Family; Visit Provider Nurse Practitioner Family | DX: N93.9 Abnormal uterine and vaginal bleeding, unspecified (principal) | CPT/HCPCS: 99212 ==

== ENCOUNTER 2025-03-13 16:34 | Emergency (ER) | payer OTHER, SELFPAY ==
[2025-03-13 16:56] VITALS: BP 144/86; PULSE 80; RESP 18; TEMP 36.8; O2SAT 98; BMI 373.8
[2025-03-13 17:11] LABS: MANUAL DIFF FLAG NO
[2025-03-13 17:16] LABS: Basophils Percent Auto 0.4 % (0-2); Eosinophils Absolute Auto 0.1 X10*3/uL (0.0-0.4); Eosinophils Percent Auto 1.3 % (0-4); Hematocrit 34.9 % (37.0-47.0); Hemoglobin 11.6 g/dl (12.0-16.0); Imm Gran Abs Auto 0.03 X10*3/uL (0.00-0.03); Imm Gran Pct Auto 0.3 % (0.0-0.4); Lymphocytes Absolute Auto 2.6 X10*3/uL (1.2-4.9); Lymphocytes Percent Auto 28.9 % (20-40); Mean Corpuscular HGB Conc 33.2 g/dl (31.0-35.0); Mean Corpuscular Hemoglobin 28.2 pg (27.0-33.0); Mean Corpuscular Volume 84.9 fL (80.0-98.0); Mean Platelet Volume 10.6 fL (9.4-12.3); Monocytes Absolute Auto 0.8 X10*3/uL (0.1-1.2); Monocytes Percent Auto 8.6 % (2-11); Neutrophils Absolute Auto 5.5 x10*3/uL (2.0-8.3); Neutrophils Percent Auto 60.5 % (45-73); Platelet Count 250 X10*3/uL (160-400); Red Blood Count 4.11 X10*6/uL (4.20-5.50); Red Cell Distribution Width 13.1 % (11.0-16.0); White Blood Count 9.1 X10*3/uL (4.8-10.8)
[2025-03-13 17:27] LABS: Alanine Aminotransferase 21 U/L (0-31); Albumin Level 4.1 g/dL (3.5-5.0); Alkaline Phosphatase 62 U/L (39-117); Anion Gap 11 (12-20); Aspartate Amino Transferase 24 U/L (5-31); Bilirubin Total 0.2 mg/dL (0.0-1.0); Blood Urea Nitrogen 12 mg/dL (9-16); Calcium 8.7 mg/dL (8.4-10.2); Carbon Dioxide 22 mmol/L (22-29); Chloride 112 mmol/L (96-108); Creatinine Clr Calc Pharmacy 623.7; Estimated Glomerular Filt Rate > 60; Glucose Random 106 mg/dL (60-115); Magnesium 1.9 mg/dL (1.6-2.6); Potassium 3.9 mmol/L (3.3-5.1); Sodium 141 mmol/L (135-145); Total Protein 7.2 g/dL (6.5-8.0)
--- OUTSIDE RECORDS SUMMARY | 2025-03-13 20:06 | XMS_ITS | Encounter Summary ---
Author Organization [employer] Address [address] [facility] [address]t [place] [address] Care Team Providers Care Grocery Store Courtesy Clerk Name Role Phone Unavailable Primary Care Provider Unavailabl e Encounter Details Date Type Department Care Team (Late st Contact Info) Description 12/30/2022 Abstract [facility] ADULT DENTAL [address] [place] [address] Ketty Greene [address] [place] [address] Social History Tobacco Use Types Packs/Day Years [...]
--- OUTSIDE RECORDS SUMMARY | 2025-03-13 20:06 | XMS_ITS | Clinical Summary ---
Author Organization [employer] Address [address] [facility] [address] [place] [address] Care Team Providers Care Submarine Cable Equipment Technician Name Role Phone Unavailable Primary Care Provider [...]
--- OUTSIDE RECORDS SUMMARY | 2025-03-13 20:06 | XMS_ITS | Encounter Summary ---
Author Organization [employer] Address [address] [facility] [address]t [place] [address] Care Team Providers Care Occupational Therapy Technician Name Role Phone Unavailable Primary Care Provider Unavailabl e Encounter Details Date Type Department Care Team (Late st Contact Info) Description 12/30/2022 Abstract [facility] ADULT DENTAL [address] [place] [address] Boni Orta DDS [address] [place] [address] Social History Tobacco Use Types Packs/Day Years [...]
--- OUTSIDE RECORDS SUMMARY | 2025-03-13 20:06 | XMS_ITS | Encounter Summary ---
Author Organization [employer] Address [address] [facility] [address] [place] [address] Care Team Providers Care Digester Cook Name Role Phone Unavailable Primary Care Provider Unavailabl e Encounter Details Date Type Department Care Team (Late st Contact Info) Description 12/30/2022 Abstract [facility] ADULT DENTAL [address] [place] [address] Boni Orta DDS [address] [place] [address] Social History Tobacco Use Types Packs/Day Years [...]
--- OUTSIDE RECORDS SUMMARY | 2025-03-13 20:06 | XMS_ITS | Clinical Summary ---
Author Organization [facility] it Address [address] [place] [address] Care Team Providers Care Electromechanical Inspector Name Role Phone Unavailable Primary Care [...]
--- OUTSIDE RECORDS SUMMARY | 2025-03-13 20:06 | XMS_ITS | Encounter Summary ---
Author Organization [employer] Address [address] [facility] [address] [place] [address] Care Team Providers Care Stemmer Machine Name Role Phone Unavailable Primary Care Provider Unavailabl e Encounter Details Date Type Department Care Team (Late st Contact Info) Description 11/07/2022 Abstract [facility]ULT [facility] [address] [place] [address] Boni Orta DDS [address] [place] [address] Social History Tobacco Use Types Packs/Day Years [...]
--- OUTSIDE RECORDS SUMMARY | 2025-03-13 20:06 | XMS_ITS | Encounter Summary ---
Author Organization [employer] Address [address] [facility] [address] [place] [address] Care Team Providers Care Consumer Marketing Manager Name Role Phone Unavailable Primary Care Provider Unavailabl e Encounter Details Date Type Department Care Team (Latest Contact Info) Description 09/27/2022 Abstract [facility] CONVERSIONS Dental, Provider, DDS Social History [...]
[2025-03-13] MEDS: Ibuprofen 600 MG TABLET PO (21:44)
[2025-03-13] MEDS: Acetaminophen 325 MG TABLET 975 MG PO (21:44)
--- NOTE | 2025-03-13 22:15 | ED.GENADULT ---
HPI - General Adult General Chief complaint: General Medical Stated complaint: headache/ vaginal bleeding x3 wks Time Seen by Provider: 03/13/25 22:03 Source: patient, RN notes reviewed, old records reviewed and area safety manager (Swiss, in-person) Mode of arrival: ambulatory Limitations: language barrier History of Present Illness ED Provider: Kaye Kenny PA-C HPI narrative: 54-year-old female with history of known abnormal uterine bleeding presenting to emergency department today for 3 days of vaginal bleeding. She reports not getting her menses in December and then she got it on February 21, approximately 20 days ago. She reports it was spotting for several days and over the last 3 days she has been having heavier bleeding but reports only using 3-4 pads a day. She does not use tampons. She has not feel dizzy or lightheaded. She did have a headache earlier but is no longer present. She has a history of migraines. Reports when she did have a headache it is not the worst that she ever had. Patient does not feel like she is going to pass out in any way. She is established with an OBGYN and is not due for her regular appointment until this June. She had not tried to reach out to them acutely. She reports no genital trauma no dysuria urgency no frequency. She is without any abdominal discomfort or backache. She did go to an urgent care 1st but they told her potentially that she could have cancer so she came to the emergency department. She is not on any anticoagulation and does not have any family history of uterine cancer. [facility] Patient has a transvaginal U/S ordered. She was given TXA to take for the next 5 days. OBGYAni hollins scheduled for April 2025. She was told she would likely be seen sooner if imaging revealed any acute concerns and was also told to reach out to request an acute evaluation visit vs going on wait list. She was given ED precautions such as bleeding worsenings or continues even with TXA. Related Data Home Medications ?Medication ?Instructions ?Recorded ?Confirmed multivitamin 1 tab PO DAILY 04/24/24 02/04/25 Previous Rx's ?Medication ?Instructions ?Recorded bupropion HCl 150 mg 24 hr tablet, 150 mg PO DAILY #90 tabs 02/04/25 extended release celecoxib 200 mg capsule (Celebrex) 200 mg PO BID 30 days #60 caps 02/04/25 clonidine HCl 0.1 mg tablet 0.1 mg PO .QD 90 days #90 tabs 02/04/25 tranexamic acid 650 mg tablet 650 mg PO TID 5 days #15 tabs 03/13/25 Allergies Allergy/AdvReac Type Severity Reaction Status Date / Time No Known Allergies Allergy Verified 03/13/25 16:59 Review of Systems Review of Systems: Yes all other systems are reviewed and are negative [facility] Past Medical History Attestation statement: The following information was validated with the patient. Source: old records reviewed, obtained from family and nursing notes reviewed Medical History Abnormal uterine bleeding Carpal tunnel syndrome on both sides Obesity (BMI 35.0-39.9 without comorbidity) External hemorrhoids Lower back pain Anxiety Intermittent palpitations Encounter to establish care Surgical History History of colonoscopy (~2021) Hx of section Hx of tubal ligation Family History Family History Paternal Grandmother Esophageal cancer Son FH: mental illness Substance use disorder Social History Social History Housing: House Alcohol intake: never Patient Tobacco Use Status: Former Tobacco user Tobacco use type: Cigarette Years Smoked: Infrequent e-Cigarette/Vaping Use: Never Used Second Hand Smoke Exposure: No Advance Directives: No Advance Directives Information Provided: No service: No Current occupational status: employed Current occupation: [employer] JO[employer]ER Current occupational exposures/hazards: No Cognitive needs: No Hearing needs: No Vision needs: Yes (glasses) Physical Exam ED Vital Signs: Vital Signs - 24 hr 03/13/25 16:56 03/13/25 23:01 Temperature 98.2 F 98 F Pulse Rate 80 82 Respiratory Rate 18 18 Blood Pressure 144/86 H 142/78 H Pulse Oximetry 98 98 Oxygen Delivery Method Room Air Room Air BMI result Body Mass Index 373.8 Const General: cooperative, healthy appearing, comfortable and no acute distress Nutritional Appearance: obese Orientation/consciousness: patient oriented x3 Limitations: language barrier (formal oil refiner in-person present) HENMT Head: Yes normal to inspection General nose exam: Normal external nose present Face and sinus: Yes normal facial exam Mouth: Normal oral and palatal mucosa present, lip normal and tongue normal Throat: Yes posterior oropharynx normal Eyes General: appearance normal, both eyes and all related structures Periorbital: periorbital findings normal Eyelids: Yes eyelids normal Conjunctivae: conjunctivae normal Sclerae: sclerae normal Pupils: Equal, round and reactive pupils present Neck Neck: Yes normal visual inspection, Yes full ROM and Yes no lymphadenopathy Resp Effort & Inspection: normal respiratory effort and able to speak in complete sentences Auscultation: clear to auscultation bilaterally Cardio Jugular venous distension: no JVD Rate: regular rate Rhythm: regular rhythm Peripheral pulses: Peripheral pulses 2+ throughout GI Inspection: Yes normal to inspection and Yes Abdominal panniculus present Palpation (GI): Soft to palpation Rectal Exam - Female: deferred General: Yes bladder normal to palpation and Yes no CVA tenderness Bimanual exam- vagina & uterus: bladder normal to palpation Back/Spine/Pelvis Back: no CVA tenderness Skin General skin exam: no rashes or lesions noted Neuro General: patient oriented x3 Cranial nerves: Yes Equal, round and reactive pupils present Medications Administered Discontinued Medications Generic Name Dose Route Start Last Admin Trade Name Freq PRN Reason Stop Dose Admin Acetaminophen 975 mg 03/13/25 21:35 03/13/25 21:44 Acetaminophen 325 Mg Tablet PO 03/13/25 21:36 975 mg ONCE ONE Administration Ibuprofen 600 mg 03/13/25 21:35 03/13/25 21:44 Ibuprofen 600 Mg Tablet PO 03/13/25 21:36 600 mg ONCE ONE Administration Medical Decision Making Medical Decision Making MDM Narrative: 54 y/o F here with PMH significant for being perimenopausal coming to ED for vaginal bleeding. She is well-appearing. Abd soft nontender, nonacute. No red flags for vaginal bleeding present. Not severely anemic requiring urgent transfusion/ intervention. She is hydrated. She already has outpatient transvaginal U/S ordered. She was already given TXA. Given bleeding has improved and she is not hypotensive, I have encouraged patient to keep those plans in place. I reiterated them to her. Discussed reasons for her to return. She demonstrated verbal understanding of the plan and agreed via oil refiner and was d/c to home stable. Declined exam and traumatic etiology. This was deferred but does limit DDX. Differential Diagnosis Differential Diagnoses: The differential diagnosis associated with the presentation includes uterine hyperplasia, uterine fibroids, pelvic trauma, anemia, GI bleed Admission/Observation Consideration of admission/observation: Escalation of care including admission/observation considered Has patient had any signs of septic or shock or been hemodynamically unstable this would have been part of plan. Lab Data MDM Lab Attestation statement: I reviewed the patient's lab results. Mild normocyctic anemia bordeline to normal; ML due to acute menorrhagia. No leukocytosis or pancytopenia. 03/13/25 17:07 03/13/25 17:07 Labs: Lab Results 03/13/25 Range/Units 17:07 WBC 9.1 (4.8-10.8) X10*3/uL RBC 4.11 L (4.20-5.50) X10*6/uL Hgb 11.6 L (12.0-16.0) g/dl Hct 34.9 L (37.0-47.0) % MCV 84.9 (80.0-98.0) fL MCH 28.2 (27.0-33.0) pg MCHC 33.2 (31.0-35.0) g/dl RDW 13.1 (11.0-16.0) % Plt Count 250 (160-400) X10*3/uL MPV 10.6 (9.4-12.3) fL Immature Gran % (Auto) 0.3 (0.0-0.4) % Neut % (Auto) 60.5 (45-73) % Lymph % (Auto) 28.9 (20-40) % Blount % (Auto) 8.6 (2-11) % Eos % (Auto) 1.3 (0-4) % Baso % (Auto) 0.4 (0-2) % Lymph # (Auto) 2.6 (1.2-4.9) X10*3/uL Blount # (Auto) 0.8 (0.1-1.2) X10*3/uL Eos # (Auto) 0.1 (0.0-0.4) X10*3/uL Baso # (Auto) 0.0 (0.0-0.2) X10*3/uL Abs Immat Gran (auto) 0.03 (0.00-0.03) X10*3/uL Absolute Neuts (auto) 5.5 (2.0-8.3) x10*3/uL Absolute Nucleated RBC 0.000 (0.0-0.012) X10*3/uL Nucleated RBC % (auto) 0.0 (0.0-0.2) /100WBC Sodium 141 (135-145) mmol/L Potassium 3.9 (3.3-5.1) mmol/L Chloride 112 H (96-108) mmol/L Carbon Dioxide 22 (22-29) mmol/L Anion Gap 11 L (12-20) BUN 12 (9-16) mg/dL Creatinine 0.66 (0.5-1.4) mg/dL Estim Creat Clear Calc 623.7 Estimated GFR > 60 Random Glucose 106 (60-115) mg/dL Calcium 8.7 D (8.4-10.2) mg/dL Magnesium 1.9 (1.6-2.6) mg/dL Total Bilirubin 0.2 (0.0-1.0) mg/dL AST 24 (5-31) U/L ALT 21 (0-31) U/L Alkaline Phosphatase 62 (39-117) U/L Total Protein 7.2 (6.5-8.0) g/dL Albumin 4.1 (3.5-5.0) g/dL Independent Historian Clinical information obtained from an independent historian. History obtained from or confirmed by: Other (Formal in-person oil refiner) External Record Review External record reviewed: Outpatient record Tests considered The following testing was considered but not selected: would have considered stat transvaginal U/S should patient had tender abd/ bleeding through a pad/an hour, worsening bleeding, or other pelvic trauma to warrant u/s CT pelvic scanning. Prescription Management I considered prescription management with: Other (TXA, but already given rx from outpatient clinic within last 24 hours) Chronic Conditions Patient?s care impacted by: Other (obesity) Social Determinants Patient?s care significantly limited by Social Determinants of Health including: Other Social Determinant of Health Critical Care Time Critical Care Time Critical Care Time: No Discharge Plan Discharge Clinical Impression: Menorrhagia Patient Disposition: Home, Self-Care Additional Instructions: You were seen in the Emergency Department today for abnormal vaginal bleeding. Your blood counts were stable. It is important if you were given medications today to help with the bleeding to take them as prescribed. Do not take aspirin containing products. You need to follow up with your primary care doctor or OBGYN. Please return for worsening symptoms such as pain, dizziness, fainting, bleeding this is much heavier than a period and you are having large clots bigger than a golf ball. Please see list of OGBYN providers below if you do not have one. Usted fue atendida hoy en el Departamento de Emergencias por sangrado vaginal anormal. Paula niveles de renetta estaban estables. Es importante que, si se le administraron medicamentos hoy para ayudar con el sangrado, los tome seg?n las indicaciones. No tome productos que contengan aspirina. Debe hacer un seguimiento con xiao m?dico de atenci?n primaria o con un gineco-obstetra (OBGYN). Por favor, regrese si presenta s?ntomas que empeoran, shayy dolor, mareo, desmayo, sangrado mucho m?s abundante que rosi menstruaci?n normal o si est? expulsando co?gulos grandes, mayores que rosi pelota de golf. Si no tiene un gineco-obstetra, consulte la lista de proveedores que se encuentra a continuaci?n. OBGYN and Midwifery [facility] [address] [phone] [facility] [address] [phone] [facility] [address] [facility] [address] [place] [address] [phone] OBGYN and Midwifery [facility] [address] [phone] [facility] [phone] Prescriptions: No Action multivitamin Tablet 1 tab PO DAILY triamcinolone acetonide 40 mg/mL suspension 20 mg Tendon Sheath Inj. ONCE Qty: 0.5 0RF bupropion HCl 150 mg tablet extended release 24 hr 150 mg PO DAILY Qty: 90 1RF celecoxib [Celebrex] 200 mg capsule 200 mg PO BID 30 Days Qty: 60 3RF clonidine HCl 0.1 mg tablet 0.1 mg PO .QD 90 Days Qty: 90 1RF tranexamic acid 650 mg tablet 650 mg PO TID 5 Days Qty: 15 0RF Referrals: Coral Padron PA-C [Physician [employer] Sales Representative] - 3 days Interventions: ED Discharge Assessment Last Done: 03/14/25 01:06 Discharge Date/Time: 03/13/25 23:15 Print Language: Swiss
[2025-03-13 23:01] VITALS: BP 142/78; PULSE 82; RESP 18; TEMP 36.6; O2SAT 98
[2025-03-14 01:06] VITALS: BP 142/72; PULSE 82; RESP 18; TEMP 36.6; O2SAT 98
== END 2025-03-13 23:15 | disposition home or self-care (01) ==
PROVIDERS: Emergency Provider Internal Medicine; PCP Nurse Practitioner Family
DX: N92.0 Excessive and frequent menstruation with regular cycle (principal); N93.9 Abnormal uterine and vaginal bleeding, unspecified
CPT/HCPCS: 36415; 80053; 83735; 85025; 99283

== ENCOUNTER 2025-04-09 15:21 | Outpatient (REF) | payer OTHER, SELFPAY ==
--- NOTE | ~2025-04-09 | US_ITS ---
EXAMINATION: US PELVIS CLINICAL INFORMATION: Abnormal uterine bleeding, menorrhagia, bleeding for 3 weeks COMPARISON: None available. TECHNIQUE: Ultrasound of the pelvis is performed using both transabdominal and transvaginal transducers along with Doppler. Transvaginal imaging is performed due to inadequate visualization transabdominally. FINDINGS: Uterus: The uterus is anteflexed and measures 7.6 x 4.3 x 5.3 cm. Nabothian cysts and calcifications are noted in the cervix. The endometrial stripe thickness is 4 mm. The uterus is smooth in contour and has normal myometrial echogenicity. No visible fibroid. Adnexa: Both ovaries are visualized. There is normal color flow to the adnexa. There is no ovarian torsion. There is no pelvic ascites or fluid collection. Right ovary measures 2.0 x 1.2 x 2.4 cm. Left ovary measures 2.4 x 1.6 x 1.9 cm. US/US pelvic and transvaginal IMPRESSION: Unremarkable pelvic ultrasound. Electronically signed by: Joshua Rivera MD 04/09/2025 05:32 PM EDT
--- OUTSIDE RECORDS SUMMARY | 2025-04-09 17:43 | XMS_ITS | Encounter Summary ---
Author Organization [employer] Address [address] [facility] [address] [place] [address] Care Team Providers Care Per Diem Clerk Name Role Phone Unavailable Primary Care Provider Unavailabl e Encounter Details Date Type Department Care Team (Late st Contact Info) Description 12/30/2022 Abstract [facility] ADULT DENTAL [address] [place] [address] Boni Orta DDS [address] [place] [address] Social History Tobacco Use Types Packs/Day Years [...]
== END 2025-04-09 15:22 | disposition home or self-care (01) ==
LOC: HO.HMGCX 15:21
PROVIDERS: PCP Nurse Practitioner Family; Visit Provider Nurse Practitioner Family
DX: N93.9 Abnormal uterine and vaginal bleeding, unspecified (principal)
CPT/HCPCS: 76830; 76856

== ENCOUNTER → 2025-04-09 15:24 | Outpatient (BNV) | payer OTHER, SELFPAY | PROVIDERS: PCP Nurse Practitioner Family; Visit Provider Radiology Diagnostic Radiology | DX: N93.9 Abnormal uterine and vaginal bleeding, unspecified (principal) | CPT/HCPCS: 76830; 76856 ==

== ENCOUNTER 2025-04-10 13:41 | Outpatient (AMB) | payer OTHER, SELFPAY ==
--- NOTE | 2025-04-10 13:49 | A.OFFPC_ITS ---
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: No Allergies No Known Allergies Allergy (Verified 04/10/25 17:04) Medication List - Last Reconciled 04/10/25 by ROMEO Dobbs- bupropion HCl XL 150 mg PO DAILY celecoxib (Celebrex) 200 mg PO BID 30 days clonidine HCl 0.1 mg PO .QD 90 days escitalopram oxalate 5 mg PO DAILY multivitamin 1 tab PO DAILY tranexamic acid 650 mg PO TID 5 days Tobacco use date assessed: 04/10/25 Dental Screening Dental Screen Date: 04/10/25 Did you have a dental visit in the last 12 months?: Yes Did you have a dental problem in the last 6 months where you did not have access to dental care?: No Was dental information given to patient?: Patient has dentist HPI HPI Comments History of Present Illness Details 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 She reports not getting her menses in December and then she got it on February 21, approximately 20 days ago. She reports it was spotting for several days and over the last 3 days she has been having heavier bleeding but reports only using 3-4 pads a day. She does not use tampons. She has not feel dizzy or lightheaded. She did have a headache earlier but is no longer present. She has a history of migraines. Reports when she did have a headache it is not the worst that she ever had. Patient does not feel like she is going to pass out in any way. She is established with an OBGYN and is not due for her regular appointment until this June. She had not tried to reach out to them acutely. She reports no genital trauma no dysuria urgency no frequency. She is without any abdominal discomfort or backache. She did go to an urgent care 1st but they told her potentially that she could have cancer so she came to the emergency department. She is not on any anticoagulation and does not have any family history of uterine cancer. Visit from patient's visit in [place] rev'd today. Patient has a transvaginal U/S ordered. She was given TXA to take for the next 5 days. SAHARA hollins scheduled for April 2025. She was told she would likely be seen sooner if imaging revealed any acute concerns and was also told to reach out to request an acute evaluation visit vs going on wait list. She was given ED precautions such as bleeding worsenings or continues even with TXA. Today she reports she stopped bleeding 1-2 days after the ED visit, with help of TXA. She felt ok. Then 3 days ago started bleeding again, heavy, like last time. She is not feeling weak or dizzy. [facility] CONVEYOR FEEDER appt not scheduled until 05/22/25. She did complete US - which was reviewed w/ her today. Plan: I have sent a message to [facility] CONVEYOR FEEDER to see about a sooner appt Advised for her to monitor her bleeding and if she feels sx or if the bleeding does not stop, asked she go to walk in or call me to get TXA again until she is evaled by CONVEYOR FEEDER. She agreed to the above. Telehealth Attestation The patient has been explained that this is an interactive (audio/video) telehealth encounter and what that consists of. The patient understands and wishes to proceed. [employer] platform was used. Total time spent caring for the patient today was 25 minutes. This includes time spent before the visit reviewing the chart, time spent during the visit, and time spent after the visit on documentation, reviewing laboratory results, diagnostic imaging, medications, performing a medically necessary evaluation, counseling on diagnoses, care coordination, ordering appropriate tests, ordering appropriate medications, review of tests performed by other providers, reporting test results with the patient, communication with other healthcare providers. [facility] Medical History Abnormal uterine bleeding Carpal tunnel syndrome on both sides Obesity (BMI 35.0-39.9 without comorbidity) External hemorrhoids Lower back pain Anxiety Intermittent palpitations Encounter to establish care Surgical History History of colonoscopy (~2021) Hx of section Hx of tubal ligation Family History Paternal Grandmother Esophageal cancer Son FH: mental illness Substance use disorder Social History Housing: House Alcohol intake: never Patient Tobacco Use Status: Former Tobacco user Tobacco use type: Cigarette Years Smoked: Infrequent e-Cigarette/Vaping Use: Never Used Second Hand Smoke Exposure: No service: No Current occupational status: employed 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 4. Feeling tired or having little energy: not at all 5. Poor appetite or overeating: not at all 6. Feeling bad about yourself - or that you are a failure or have let yourself or your family down: not at all 7. Trouble concentrating on things, such as reading the newspaper or watching television: not at all 8. Moving or speaking so slowly that other people could have noticed. Or the opposite - being so fidgety or restless that you have been moving around a lot more than usual: not at all 9. Thoughts that you would be better off or of hurting yourself in some way: not at all Source: Developed by Drs. Enzo Seay, Yadira Vargas, Hakeem Tinajero and colleagues, with an educational christine from [employer]. Thrive Questionnaire Date Thrive assessed: 04/10/25 I am a: Patient What is your living situation today?: I have a steady place to live Within the past 12 months, did the food you bought not last and you didn't have the money to get more?: Never true Within the past 12 months, did you worry whether your food would run out before you got money to buy more?: Never true Do you have trouble paying for medicines?: No Do you have trouble getting transportation to medical appointments?: No Do you have trouble paying your heating and electricity bill?: No Do you have trouble taking care of your child, family member or friend?: No Do you have trouble with day-to-day activities such as bathing, preparing meals, shopping, managing finances, etc.?: No Are you currently unemployed and looking for a job?: No Are you interested in more education?: No Please select the resources that you would like help with: None Currently or been in a relationship where the following occur: No concerns reported THRIVE Score: 0 AUDIT C Alcohol Use Questionnaire (AUDIT-C) 1. How often do you have a drink containing alcohol?: Never Total Score: 0 CLAIRE-7 AMB Questionnaire CLAIRE-7 Date CLAIRE - 7 assessed: 02/04/25 Feeling nervous, anxious, or on edge: 0 = Not at all Source: Developed by Drs. Enzo Seay, Yadira Vargas, Hakeem Tinajero and colleagues, with an educational christine from [employer]. Physical exam (Primary Care) Tobacco/Smoking Status: Tobacco use Status Tobacco use date assessed 04/10/25 04/10/25 13:52 Patient Tobacco Use Status Former Tobacco user 04/10/25 13:52 Tobacco use type Cigarette 04/10/25 13:52 e-Cigarette/Vaping Use Never Used 04/10/25 13:52 Thrive Assessment: Date of Thrive Assessment Date Thrive assessed 04/10/25 04/10/25 13:52 Currently or been in a relationship where the following occur: No concerns reported Telehealth Telehealth Telehealth Platform: [employer] Location of provider rendering services: practice address Location of patient: address on file Patient Identification confirmed using: Name, : Yes Telehealth method: voice only Patient verbally consented to treatment: Yes Patient verbally consented to billing insurance company: Yes Patient informed of any privacy concerns related to visit: Yes Minutes spent on Phone/Video with Pt.: 15 Results Reviewed Results Reviewed: [facility] [address] [place] [address] Ultrasound Report Signed Patient: Brittany Hughes MR#: [id number] : 1970 Acct:[id number] Age/Sex: 54 / F ADM Date: 04/09/25 Loc: HO.HMGCX Attending Dr: Kimmy De Dios NP Ordering Physician: Kimmy De Dios NP Date of Service: 04/09/25 Procedure(s): US pelvic and transvaginal Accession Number(s): [id number] cc: Kimmy De Dios NP; Shelbi Jarquin [facility]-~ EXAMINATION: US PELVIS CLINICAL INFORMATION: Abnormal uterine bleeding, menorrhagia, bleeding for 3 weeks COMPARISON: None available. TECHNIQUE: Ultrasound of the pelvis is performed using both transabdominal and transvaginal transducers along with Doppler. Transvaginal imaging is performed due to inadequate visualization transabdominally. FINDINGS: Uterus: The uterus is anteflexed and measures 7.6 x 4.3 x 5.3 cm. Nabothian cysts and calcifications are noted in the cervix. The endometrial stripe thickness is 4 mm. The uterus is smooth in contour and has normal myometrial echogenicity. No visible fibroid. Adnexa: Both ovaries are visualized. There is normal color flow to the adnexa. There is no ovarian torsion. There is no pelvic ascites or fluid collection. Right ovary measures 2.0 x 1.2 x 2.4 cm. Left ovary measures 2.4 x 1.6 x 1.9 cm. US/US pelvic and transvaginal IMPRESSION: Unremarkable pelvic ultrasound. Electronically signed by: Joshua Rivera MD 04/09/2025 05:32 PM EDT RP Dictated By: Joshua Rivera MD Signed By: <Electronically signed by Joshua Rivera MD in OV> 04/09/25 1732 DD/ 1524 TD/TT: 04/09/25 1550 Client Technical Support Associate: Coding Level of Care Code Tele Est Pt Level 3 (15045) Complex EM visit Add On G2211 Diagnoses Hospital discharge follow-up Z09 Nabothian cyst N88.8 Abnormal uterine bleeding N93.9 Family history of bladder cancer Z80.52 Family history of cervical cancer Z80.49 Assessment & Plan Assessment & Plan (1) Hospital discharge follow-up: Code(s): Z09 - Encounter for follow-up examination after completed treatment for conditions other than malignant neoplasm (2) Nabothian cyst: Code(s): N88.8 - Other specified noninflammatory disorders of cervix uteri Category: Medical (3) Abnormal uterine bleeding: Code(s): N93.9 - Abnormal uterine and vaginal bleeding, unspecified Category: Medical (4) Family history of bladder cancer: Comment: Sister Code(s): Z80.52 - Family history of malignant neoplasm of bladder Category: Medical (5) Family history of cervical cancer: Comment: sister Code(s): Z80.49 - Family history of malignant neoplasm of other genital organs Category: Medical Plan .
--- OUTSIDE RECORDS SUMMARY | 2025-04-10 16:01 | XMS_ITS | Encounter Summary ---
Author Organization [employer] Address [address] [place] [address] Care Team Providers Care Irrigation Worker Name Role Phone Unavailable Primary Care Provider Unavailabl e Encounter Details Date Type Department Care Team (Late st Contact Info) Description 12/30/2022 Abstract [facility] ADULT DENTAL [address] [place] [address] Boni Orta DDS [address] [place] [address] Social History Tobacco Use Types Packs/Day Years [...]
== END 2025-04-10 17:12 | disposition home or self-care (01) ==
PROVIDERS: PCP Nurse Practitioner Family; Visit Provider Nurse Practitioner Family
DX: Z09 Encounter for follow-up examination after completed treatment for conditions other than malignant neoplasm (principal); N88.8 Other specified noninflammatory disorders of cervix uteri; N93.9 Abnormal uterine and vaginal bleeding, unspecified; Z80.52 Family history of malignant neoplasm of bladder; Z80.49 Family history of malignant neoplasm of other genital organs

== ENCOUNTER → 2025-04-10 13:41 | Outpatient (BNVA) | payer OTHER, SELFPAY | PROVIDERS: PCP Nurse Practitioner Family; Visit Provider Nurse Practitioner Family | DX: Z13.89 Encounter for screening for other disorder (principal) ==

== ENCOUNTER 2025-04-11 08:38 | Outpatient (AMB) | payer OTHER, SELFPAY ==
--- NOTE | 2025-04-11 08:43 | A.OFFVIS_ITS ---
Vital Signs 04/11/25 08:44 Height 5 ft 2 in Weight 207 lb BMI 37.9 Intake Visit Reasons: OV - Bilateral LE EMG & Lumbar Spine XR F/U Intake Note: Li is a 54 year old female who presents today for a Bilateral Lower Extremity EMG and Lumbar Spine xray review. At the last visit she was referred to Hand Surgery for Bilateral Carpal Tunnel Syndrome, she met with Juan Manuel who filled out booking for Left CTR - This surgical booking is pending. EMG IMPRESSION: 1. This is an abnormal study. 2. There are electrodiagnostic findings suggestive of left chronic L5-S1 rad iculopathy. 3. There is no electrodiagnostic evidence for peroneal neuropathy, tibial neuropathy, lumbosacral plexopathy, or peripheral neuropathy. Refrigeration Person Services: Refrigeration Person Present Refrigeration Person Name: Jimmie Hicks [phone] Allergies No Known Allergies Allergy (Verified 04/11/25 08:49) HPI Comments Details: Since last time I saw the patient, we have done a few test for her lower back pain. EMG done by me 03/05/2025 showed possible left chronic L5-S1 radiculopathy. Patient was sent for lumbar x-rays which did show spondylosis. Separately, patient found to have positive DARBY but negative RF. She has been referred to Rheumatology. She is also now following Dr. Tang for Carpal Tunnel Syndrome. She says today that she continues to have both numbness on feet and lower back pain, unchanged from previous but not worse. Says regular in terms of severity of pain. [facility] Medical History Abnormal uterine bleeding Carpal tunnel syndrome on both sides Obesity (BMI 35.0-39.9 without comorbidity) External hemorrhoids Lower back pain Anxiety Intermittent palpitations Encounter to establish care Surgical History History of colonoscopy (~2021) Hx of section Hx of tubal ligation Family History Paternal Grandmother Esophageal cancer Son FH: mental illness Substance use disorder Social History Housing: House Alcohol intake: never Patient Tobacco Use Status: Former Tobacco user Tobacco use type: Cigarette Years Smoked: Infrequent e-Cigarette/Vaping Use: Never Used Second Hand Smoke Exposure: No service: No Current occupational status: employed 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 Neurological: Neurologic examination of the upper and lower extremities was nonfocal with intact sensation, muscle stretch reflexes and without focal motor deficits . Astudillo?s negative bilaterally. Gait is non-antalgic without loss of balance. Results Reviewed Results Reviewed: EMGs as above Assessment & Plan Assessment & Plan (1) Lumbar spondylosis: Code(s): M47.816 - Spondylosis without myelopathy or radiculopathy, lumbar region Category: Medical (2) Numbness in feet: Code(s): R20.0 - Anesthesia of skin Category: Medical (3) Positive DARBY (antinuclear antibody): Code(s): R76.8 - Other specified abnormal immunological findings in serum Category: Medical Plan 1. Chronic possible lumbar radiculopathy, pain tolerable, related to feet n umbness. Referring to PT. 2. Positive DARBY - seeing rheumatology in September Assessment and plan discussed with patient, and patient was agreeable. All questions were answered thoroughly. Follow up 3 months. Kim Dhaliwal MD, SAMUEL Board Certified, [place] Board of [employer] Medicine and Rehabilitation (ABPMR) Board Certified, [place] Board of Electrodiagnostic Medicine (ABEM) Orders: Orders PT Evaluation and Treatment Today M47.816 - Spondylosis without myelopathy or radiculopathy, lumbar region, R20.0 - Anesthesia of skin Coding Level of Care Code Est Pt Level 3 (67861) Diagnoses Lumbar spondylosis M47.816 Numbness in feet R20.0 Positive DARBY (antinuclear antibody) R76.8
[2025-04-11 08:44] VITALS: BMI 37.9
--- OUTSIDE RECORDS SUMMARY | 2025-04-11 08:50 | XMS_ITS | Encounter Summary ---
Author Organization [employer] Address [address] [place] [address] Care Team Providers Care Enchilada Maker Name Role Phone Unavailable Primary Care Provider Unavailabl e Encounter Details Date Type Department Care Team (Late st Contact Info) Description 12/30/2022 Abstract [facility] ADULT DENTAL [address] [place] [address] Boni Orta DDS [address] [place] [address] Social History Tobacco Use Types Packs/Day Years [...]
== END 2025-04-11 09:04 | disposition home or self-care (01) ==
LOC: HO.HOS 08:39
PROVIDERS: PCP Nurse Practitioner Family; Visit Provider Physical Medicine & Rehabilitation
DX: M47.816 Spondylosis without myelopathy or radiculopathy, lumbar region (principal); R20.0 Anesthesia of skin; R76.8 Other specified abnormal immunological findings in serum
CPT/HCPCS: 99213

== ENCOUNTER 2025-04-11 08:38 | Outpatient (REF) | payer OTHER, SELFPAY ==
[2025-04-11 12:21] LABS: Hemoglobin 11.4 g/dl (12.0-16.0); Mean Corpuscular HGB Conc 32.6 g/dl (31.0-35.0); Mean Corpuscular Hemoglobin 27.3 pg (27.0-33.0); Mean Corpuscular Volume 83.7 fL (80.0-98.0); Mean Platelet Volume 11.3 fL (9.4-12.3); Platelet Count 254 X10*3/uL (160-400); Red Blood Count 4.18 X10*6/uL (4.20-5.50); Red Cell Distribution Width 13.2 % (11.0-16.0); White Blood Count 8.1 X10*3/uL (4.8-10.8)
[2025-04-11 13:16] LABS: HCG Quantitative < 2 mIU/mL; TSH reflex Free T4 2.08 uIU/mL (0.32-4.0)
[2025-04-11 14:29] LABS: CT PCR NOT DETECTED (Not Detect.); NG PCR NOT DETECTED (Not Detect.)
[2025-04-12 05:44] LABS: Follicle Stimulating Hormone 23.1 mIU/mL; Lutenizing Hormone 5.7 mIU/mL
== END 2025-04-11 08:39 | disposition home or self-care (01) ==
LOC: HO.LAB 08:38
PROVIDERS: Absent Provider Obstetrics & Gynecology; PCP Nurse Practitioner Family; Visit Provider Physical Medicine & Rehabilitation
DX: N93.9 Abnormal uterine and vaginal bleeding, unspecified (principal); M47.816 Spondylosis without myelopathy or radiculopathy, lumbar region; R20.2 Paresthesia of skin; R76.8 Other specified abnormal immunological findings in serum
CPT/HCPCS: 36415; 58100; 81025; 83001; 83002; 84443; 84702; 85027; 87491; 87591; 99212

== ENCOUNTER 2025-04-11 09:30 | Outpatient (AMB) | payer OTHER, SELFPAY ==
--- NOTE | 2025-04-11 09:34 | A.OFFVIS_ITS ---
Vital Signs 04/11/25 09:40 Height 5 ft 2 in Weight 207 lb BMI 37.9 Intake Visit Reasons: AUB Catering Director Required: Yes Catering Director Language: Director Of Assessment Services: Catering Director Present (in person) Catering Director Name: Lexi MCKENZIE Information Interpreted: non-clinical & clinical Pin Inserter Regulator: Pin Inserter Regulator Present (Lexitasha MCKENZIE) Accompanied by: Self / Same As Patient Allergies No Known Allergies Allergy (Verified 04/11/25 09:41) Is last menstrual period known: Yes Last menstrual period: 04/06/25 HPI Comments Details: Presenting as a follow-up from an emergency room for vaginal bleeding. The following workup was done in the ER. The bleeding has slowed down since then H&H 11.6/34.9 Pelvic ultrasound showed the following: Uterus: The uterus is anteflexed and measures 7.6 x 4.3 x 5.3 cm. Nabothian cysts and calcifications are noted in the cervix. The endometrial stripe thickness is 4 mm. The uterus is smooth in contour and has normal myometrial echogenicity. No visible fibroid. Adnexa: Both ovaries are visualized. There is normal color flow to the adnexa. There is no ovarian torsion. There is no pelvic ascites or fluid collection. Right ovary measures 2.0 x 1.2 x 2.4 cm. Left ovary measures 2.4 x 1.6 x 1.9 cm. Last co testing in 03/20 was negative Last mammogram in 12/24 was BI-RADS 1 [facility] Medical History Abnormal uterine bleeding Carpal tunnel syndrome on both sides Obesity (BMI 35.0-39.9 without comorbidity) External hemorrhoids Lower back pain Anxiety Intermittent palpitations Encounter to establish care Surgical History History of colonoscopy (~2021) Hx of section Hx of tubal ligation Family History Paternal Grandmother Esophageal cancer Son FH: mental illness Substance use disorder Social History Housing: House Alcohol intake: never Patient Tobacco Use Status: Former Tobacco user Tobacco use type: Cigarette Years Smoked: Infrequent e-Cigarette/Vaping Use: Never Used Second Hand Smoke Exposure: No service: No Current occupational status: employed 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 Current occupational exposures/hazards: No Cognitive needs: No Hearing needs: No Vision needs: Yes (glasses) Female Reproductive History Menstrual Date of last menstrual period: 04/06/25 control method: permanent sterilization Review of Systems Const All systems reviewed & are unremarkable except as noted in HPI and below Physical Exam Vital Signs: BMI result Body Mass Index 37.9 General: Yes no CVA tenderness External Female Exam: normal external appearance and normal appearance of the urethra Speculum Exam - Vagina: normal appearance of the vagina, normal palpation, no lesions and no masses Speculum Exam - Cervix: normal appearance of the cervix, normal palpation, no lesions, no masses and nontender Bimanual exam- vagina & uterus: normal bimanual exam, normal palpation, uterine size normal, normal palpation, uterine shape normal, No Cervical tenderness present and non-tender Bimanual Exam- Adnexa, other: normal adnexae Back/Spine/Pelvis Back: no CVA tenderness Office Procedures Endometrial Biopsy Details: The patient was counseled regarding the indication and benefits of endometrial sampling to rule out endometrial pathology including not limited to endometrial hyperplasia or endometrial cancer and others; The alternatives (Either do nothing vs. hysteroscopy D&C) & the risks were discussed with the patient including but not limited: pain, uterine perforation, bleeding, infection, possible injury to bladder, bowel, ureter, possible need for blood transfusion with all its possible risks. The patient verbalized understanding all questions answered and signed consent. Urine test done in the office was negative The patient was placed into the dorsal lithotomy position; a speculum was inserted in the vagina. Using aseptic technique for the procedure, the cervix was cleansed with Betadine. The anterior lip of the cervix was grasped with a single tooth tenaculum. The uterus was sounded to 7 cm with a 4 mm Pipelle was used. Tissues samples were obtained and placed in formalin, in a patient labeled container and sent to the pathology department. At the end of the procedure, there was minimal bleeding noted The patient tolerated the procedure well and was discharged in good condition with the following instructions: Nothing in the vagina until the bleeding stops. No sex until the bleeding stops, to call if any of the following occurs: fever (>100.4), flu-like symptoms, abdominal pain, heavy bleeding, four smelling vaginal discharge. The patient was instructed to schedule a Follow up appointment in 2 weeks to discuss pathology results of the biopsy and treatment options. This note was generated with a voice recognition program. Some errors may have been overlooked during the review of this note. Sometimes these errors may affect the content or meaning of a given sentence. [id number] Biopsy Results AMB Test Urine AMB Test Urine Negative Last Edit by Lexi Greene CMA on 09:56 Assessment & Plan Assessment & Plan (1) Abnormal uterine bleeding: Code(s): N93.9 - Abnormal uterine and vaginal bleeding, unspecified Category: Medical Plan: UPT done in the office was negative. GC and chlamydia taken CBC, TSH, HCG, FSH/LH ordered. Discussed with the patient the different causes of abnormal bleeding including thyroid disorders, uterine and ovarian pathology, endometrial hyperplasia, carcinoma and other potential causes. Discussed with the patient the work up including CBC (to r/o anemia), TSH, FSH/LH, endometrial biopsy to r/o endometrial pathology. EMB done, see procedure All questions answered and the patient verbalized understanding. Instructed the patient to schedule EMB follow-up appointment in 2 weeks, and to call or go to emergency room in case of heavy vaginal bleeding. Orders: Orders Lutenizing Hormone Today N93.9 - Abnormal uterine and vaginal bleeding, unspecified TSH reflex Free T4 Today N93.9 - Abnormal uterine and vaginal bleeding, unspecified Complete Blood Count no Diff Today N93.9 - Abnormal uterine and vaginal bleeding, unspecified HCG Quantitative Today N93.9 - Abnormal uterine and vaginal bleeding, unspecified AMB HCG Urine Test Today Z32.02 - Encounter for test, result negative Follicle Stimulating Hormone Today N93.9 - Abnormal uterine and vaginal bleeding, unspecified AMB Endometrial Biopsy Today N93.9 - Abnormal uterine and vaginal bleeding, unspecified Coding Level of Care Code Est Pt Level 3 (20518) Procedure Only Diagnoses Abnormal uterine bleeding N93.9 CPT Codes Endometrial Biopsy - CPT: 45276-Viiloqbepwo Biopsy ([id number])
[2025-04-11 09:40] VITALS: BMI 37.9
== END 2025-04-11 10:23 | disposition home or self-care (01) ==
LOC: HO.HWS 09:30
PROVIDERS: PCP Nurse Practitioner Family; Visit Provider Obstetrics & Gynecology
DX: N93.9 Abnormal uterine and vaginal bleeding, unspecified (principal); Z32.02 Encounter for pregnancy test, result negative
CPT/HCPCS: 58100; 99213

== ENCOUNTER 2025-04-11 11:15 | Outpatient (REF) | payer OTHER, SELFPAY | END 2025-04-11 11:16 | disposition home or self-care (01) | LOC: HO.LNP 11:15 | PROVIDERS: Visit Provider Obstetrics & Gynecology | DX: N93.9 Abnormal uterine and vaginal bleeding, unspecified (principal) | CPT/HCPCS: 88305 ==

== ENCOUNTER 2025-04-15 07:27 | Outpatient (AMB) | payer OTHER, SELFPAY ==
[2025-04-15 07:31] VITALS: BMI 37.9
--- NOTE | 2025-04-15 07:31 | MHC.OFFVIS ---
Vital Signs 04/15/25 07:31 Height 5 ft 2 in Weight 207 lb BMI 37.9 Intake Visit Reasons: EMB Results Experimental Rocket Sled Mechanic Required: Yes Experimental Rocket Sled Mechanic Language: Vegetable Farm Manager Services: Experimental Rocket Sled Mechanic Present (in person) Experimental Rocket Sled Mechanic Name: Lexi MCKENZIE Information Interpreted: non-clinical & clinical Accompanied by: Self / Same As Patient Allergies No Known Allergies Allergy (Verified 04/15/25 07:32) Post menopausal: Yes HPI Comments Details: The patient is presenting for follow-up to discuss the results of her abnormal uterine bleeding workup and options of treatment. The following workup was done.: H&H= 11.35 TSH, hCG, GC and chlamydia were negative. FSH/LH= 23.1/5.7 Endometrial biopsy pathology showed the following: Endometrium, biopsy: Abundant blood with scant superficial fragments of benign endometrium with glandular and stromal breakdown; no atypia or carcinoma Co testing was done in 12/21 was negative. Mammogram was BI-RADS 1 in 12/24 Pelvic ultrasound showed the following: IMPRESSION: Unremarkable pelvic ultrasound [facility] Medical History Abnormal uterine bleeding Carpal tunnel syndrome on both sides Obesity (BMI 35.0-39.9 without comorbidity) External hemorrhoids Lower back pain Anxiety Intermittent palpitations Encounter to establish care Surgical History History of colonoscopy (~2021) Hx of section Hx of tubal ligation Family History Paternal Grandmother Esophageal cancer Son FH: mental illness Substance use disorder Social History Housing: House Alcohol intake: never Patient Tobacco Use Status: Former Tobacco user Tobacco use type: Cigarette Years Smoked: Infrequent e-Cigarette/Vaping Use: Never Used Second Hand Smoke Exposure: No service: No Current occupational status: employed 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 Current occupational exposures/hazards: No Cognitive needs: No Hearing needs: No Vision needs: Yes (glasses) Review of Systems Const All systems reviewed & are unremarkable except as noted in HPI and below Reports as per HPI and Reports no additional complaints GI Reports no additional complaints Reports no additional complaints Physical Exam Vital Signs: BMI result Body Mass Index 37.9 Assessment & Plan Assessment & Plan (1) Abnormal uterine bleeding: Code(s): N93.9 - Abnormal uterine and vaginal bleeding, unspecified Category: Medical Plan: Tranexamic discontinued since the patient is DARBY positive with high-risk of thrombosis. Discussed with the patient the results of the work up done and options of treatment includingMirena IUD, endometrial ablation and hysterectomy. All pros, cons, risks and benefits if each option was discussed with the patient and the patient decided to think about it and get back to us. All questions answered the patient verbalized understanding. Medications: Discontinued tranexamic acid Discontinued Reason: Doctor's Order 650 mg PO TID 5 days 15 tabs 0RF N93.9 - Abnormal uterine and vaginal bleeding, unspecified Coding Level of Care Code Est Pt Level 3 (87453) Diagnoses Abnormal uterine bleeding N93.9
== END 2025-04-15 07:50 | disposition home or self-care (01) ==
LOC: HO.HWS 07:27
PROVIDERS: PCP Nurse Practitioner Family; Visit Provider Obstetrics & Gynecology
DX: N93.9 Abnormal uterine and vaginal bleeding, unspecified (principal)
CPT/HCPCS: 99213

== ENCOUNTER → 2025-04-15 07:27 | Outpatient (BNVA) | payer OTHER, SELFPAY | PROVIDERS: PCP Nurse Practitioner Family; Visit Provider Obstetrics & Gynecology | DX: Z71.2 Person consulting for explanation of examination or test findings (principal); N93.9 Abnormal uterine and vaginal bleeding, unspecified | CPT/HCPCS: 99212 ==

== ENCOUNTER 2025-06-16 14:09 | Outpatient (AMB) | payer OTHER, SELFPAY ==
--- NOTE | 2025-06-16 14:11 | MHC.OFFVIS ---
Vital Signs 06/16/25 14:17 Height 5 ft 2 in Weight 207 lb BMI 37.9 Intake Visit Reasons: OV- Bilateral CTS, discuss surgery Intake Note: Brittany is a 54 year old right hand dominant female who presents today for follow up of her bilateral hand numbness and tingling. Patient reports her right hand is bothering her more. She complains of numbness and tingling that occurs daily, on and off, making it difficult to sand analyst, squeeze, and open and close lids. She explains her symptoms are worse at night. Denies finger locking. Has tried OT without much relief. Denies any prior injuries or surgeries to the hands. Patient would like to discuss right carpal tunnel release today. Parachutist/Combatant Diver Qualified Required: Yes Parachutist/Combatant Diver Qualified Language: Ceo & Board Director Services: Parachutist/Combatant Diver Qualified Present Parachutist/Combatant Diver Qualified Name: MAGALY Najera/LUDWIG Information Interpreted: clinical only Allergies No Known Allergies Allergy (Verified 06/16/25 14:20) HPI HPI OV- Bilateral CTS, discuss surgery: Details: Brittany is a 54 year old right hand dominant female who presents today for follow up of her bilateral hand numbness and tingling. Patient reports her right hand is bothering her more. She complains of numbness and tingling that occurs daily, on and off, making it difficult to sand analyst, squeeze, and open and close lids. She explains her symptoms are worse at night. Denies finger locking. Has tried OT without much relief. Denies any prior injuries or surgeries to the hands. Patient would like to discuss right carpal tunnel release today. Of note, at last visit, patient was supposed to register for carpal tunnel release, however after visit had concluded she had 2nd thoughts and did not schedule surgery. [facility] Medical History Abnormal uterine bleeding Carpal tunnel syndrome on both sides Obesity (BMI 35.0-39.9 without comorbidity) External hemorrhoids Lower back pain Anxiety Intermittent palpitations Encounter to establish care Surgical History History of colonoscopy (~2021) Hx of section Hx of tubal ligation Family History Paternal Grandmother Esophageal cancer Son FH: mental illness Substance use disorder Social History Housing: House Alcohol intake: never Patient Tobacco Use Status: Former Tobacco user Tobacco use type: Cigarette Years Smoked: Infrequent e-Cigarette/Vaping Use: Never Used Second Hand Smoke Exposure: No service: No Current occupational status: employed 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 Good APB muscle firing and good finger cross. Vascular: Capillary refill brisk. ROM: Patient can make a fist and extend all their digits. Skin: No lacerations or abrasions noted. General: No ecchymosis. No erythema or evidence of infection. Results Reviewed Results Reviewed: IMPRESSION: 1. This is an abnormal study. 2. There is electrodiagnostic evidence for bilateral borderline/mild median neuropathy at the wrist, consistent with carpal tunnel syndrome. 3. There is no electrodiagnostic evidence for ulnar neuropathy, brachial plexopathy, or cervical radiculopathy. Assessment & Plan Assessment & Plan (1) Carpal tunnel syndrome on both sides: Code(s): G56.03 - Carpal tunnel syndrome, bilateral upper limbs Category: Medical Plan 1. Carpal tunnel syndrome, right Symptoms intermittent, daily, worse at night I educated the patient about the condition. I discussed both operative and nonoperative treatment options. The patient would like to proceed with surgery. The risks and benefits of operative treatment were discussed with the patient and the patient wishes to proceed with surgery. These risks include, but are not limited to, risk of damage to blood vessels, nerves, tendons, infection, recurrence, incomplete relief of preoperative symptoms, persistent pain, possible need for further surgery, and the risks associated with regional blocks and/or anesthesia. Plan is to take the patient to the operating room at some point in the next few weeks for the following procedures: 1. Right carpal tunnel release under local All of the preoperative paperwork including the consent was discussed today. All of the patient's questions were answered in the clinic today. The patient understands that they will be in contact with our cytometry technologist to discuss scheduling their procedure. Patient denies diabetes, blood thinners, asthma, heart issues, lung issues, kidney issues, or current smoking. 2. Carpal tunnel syndrome, left Symptoms intermittent, daily, worse at night Patient would like to proceed with operative intervention of the right prior to any intervention of the left Patient is educated that if she is recovering well at her postoperative visit, we can get the left side signed up at that time Patient understands this and is amenable to this plan Coding Level of Care Code Est Pt Level 4 (12247) Diagnoses Carpal tunnel syndrome on both sides G56.03
[2025-06-16 14:17] VITALS: BMI 37.9
--- OUTSIDE RECORDS SUMMARY | 2025-06-16 14:54 | XMS_ITS | Patient Health Record ---
Author Organization [facility] Address [address] [place] [address] Care Team Providers Care Dry Clipper Tender Name Role Phone Nubia Duran Primary Care [...] Problem Status W/U Status Risk Notes Problem [id number] Rectal bleeding (K62.5) Active confirmed Plan Of Treatment Future Test Test Name Order Date COLONOSCOPY 04/20/2022 Insurance Providers Payer Name Payer Address Payer Phone Subscriber Number Group Number Insured Name Patient Relationship to Insured Coverage Start Date Coverage End Date [facility] [employer] [facility] [address] [address] [place], [place] [phone] [id number] EMILY SHERIFF Self - patient is the insured Medical (General) History Medical History History ICD Code Denies ID,DM,CVA,Lung disease,renal dise ase Surgical History Surgery Date(Month/Year) Varicose vein surgery section tubal ligation
--- OUTSIDE RECORDS SUMMARY | 2025-06-16 14:54 | XMS_ITS | Clinical Summary ---
Author Organization [facility] it Address [address] [place] [address] Care Team Providers Care Solutions Executive Cloud Sales Name Role Phone Unavailable Primary Care Provider [...] 2) 2021 Colorectal Cancer Screening: Colonoscopy 11/24/2023 HIV Screening 11/24/2023 Hepatitis C Screening 11/24/2023 Social Influencers of Health Screening 11/24/2023 COVID-19 Vaccine (1 - 2023-2 5 season) 2024 Depression Screening 10/30/2024 Influenza Vaccine (#1) 2025 HIB Vaccines Aged Out No longer [...]
--- OUTSIDE RECORDS SUMMARY | 2025-06-16 14:54 | XMS_ITS | Encounter Summary ---
Author Organization [facility] Address [address] [place] [address] Care Team Providers Care Tai Chi Instructor Name Role Phone Unavailable Primary Care Provider Unavailabl e Encounter Details Date Type Department Care Team (Late st Contact Info) Description 12/30/2022 Abstract [facility] [address] [place] [address] Boni Orta DDS [address] [place] [address] Social History Tobacco Use Types Packs/Day Years [...]
== END 2025-06-16 14:36 | disposition home or self-care (01) ==
LOC: HO.HOS 14:09
PROVIDERS: PCP Nurse Practitioner Family
DX: G56.03 Carpal tunnel syndrome, bilateral upper limbs (principal)
CPT/HCPCS: 99214

== ENCOUNTER → 2025-06-16 14:09 | Outpatient (BNVA) | payer OTHER, SELFPAY | PROVIDERS: PCP Nurse Practitioner Family | DX: G56.03 Carpal tunnel syndrome, bilateral upper limbs (principal) | CPT/HCPCS: 99212 ==

== ENCOUNTER 2025-07-01 10:02 | Outpatient (AMB) | payer OTHER, SELFPAY ==
--- NOTE | 2025-07-01 10:15 | A.OFFVIS_ITS ---
Vital Signs 07/01/25 10:16 Height 5 ft 3 in Weight 213 lb BMI 37.7 BP 118/60 Blood Pressure Location Rt brachial Position Sitting Pulse 72 Pulse Source Palpation Pulse Oximetry (%) 97 Oxygen Delivery Method Room Air Intake Visit Reasons: INP-Headache Allergies No Known Allergies Allergy (Verified 07/01/25 10:15) Medication List - Last Reconciled 07/01/25 by ROMEO Escalera bupropion HCl XL 150 mg PO DAILY celecoxib (Celebrex) 200 mg PO BID 30 days clonidine HCl 0.1 mg PO .QD 90 days escitalopram oxalate 15 mg PO DAILY escitalopram oxalate 5 mg PO DAILY multivitamin 1 tab PO DAILY HPI Comments Details: The patient is a 54-year-old female presenting for a new patient evaluation of headache. The patient reports she began experiencing headaches approximately one year ago. She denies any known precipitating causes, however she has gained at least 30 lb in the last year which he attributes to depression/anxiety. She describes the headache as left-sided frontal/temporal and occipital throbbing pressure pain associated with photophobia, phonophobia, cognitive difficulties, and activity intolerance. She treats this with Tylenol and rest, which he finds helpful. She also endorses blurry vision, despite her most recent eye exam being reassuring. She denies associated aura, photophobia, allodynia, nausea, vomiting, and dizziness. She is followed by a psychiatrist and a therapist. She denies a history of migraine headaches in the past. Her daughter does have migraine headaches. Review of Systems - Neurological: Reports headaches. Also reports hand numbness and tingling - Cardiovascular: Denies chest pain, palpitations. - Respiratory: Denies asthma, respiratory problems. - Gastrointestinal: Denies nausea, vomiting, constipation. - Musculoskeletal: Reports cramps in hands and legs w/wo action/rest, arthritis, knee pain, back pain, hand numbness/tingling, and restlessness. Denies neck pain - Genitourinary: Denies kidney stones. - Psychiatric: Denies depression. - Constitutional: Denies syncope. - Sleep: Endorses: Snoring, Fatigue, Apneas, Gasping Arousals, Restless sleep, Leg Cramps Pertinent denials include: neck pain, bruxism, kidney stones, constipation, asthma, diabetes, syncope and thyroid issues. Headache questionnaire: Age/time of onset: Approximately 1 year ago, when she was 53 years old Preceding causes: none Previous work-up: none Types of headache disorders: 1 Typical headache characteristics: Prodrome symptoms: denies Aura: deneis Pain intensity: severe Location, quality, characteristics: left frontal/temporal and left occipital throbbing pressure pain Associated symptoms: photophobia, phonophobia, cognitive difficulties, activity intolerance Postdrome: denies Triggers: stress Time of day: usually in the afternoon or late evening Duration and Frequency: once a week, lasting an hour or so after lying down Headache impact on the patient's quality of life: needs to lie down Current acute medication use/interventions: Tylenol 1000mg x's 1- helps Current preventative medication use: none Current non-pharmacological interventions: rest. Impact of this headache on the patient's quality of life: Needs to lie down Headache Lifestyle Factors Social History * Lives alone Nutrition * Patient states she does not think her diet is healthy, as it could be * She takes a soda, either a Coca-Cola or Sprite, once or twice a week, typically later in the afternoon Exercise * She tries to walk; however, her knee pain can interfere with her ability to walk Sleep * Goes to bed typically at midnight. * Wakes up at 4:00 AM. * Reports disturbances in sleep, snoring, gasping arousals * Stated difficulty maintaining a regular sleep schedule due to pains and early awakenings. Substance Use History * Denies use of alcohol, tobacco, and marijuana. Employment * Not currently employed [employer] Medical History Abnormal uterine bleeding Carpal tunnel syndrome on both sides Obesity (BMI 35.0-39.9 without comorbidity) External hemorrhoids Lower back pain Anxiety Intermittent palpitations Encounter to establish care Surgical History History of colonoscopy (~2021) Hx of section Hx of tubal ligation Family History Paternal Grandmother Esophageal cancer Son FH: mental illness Substance use disorder Social History Housing: House Alcohol intake: never Patient Tobacco Use Status: Former Tobacco user Tobacco use type: Cigarette Years Smoked: Infrequent e-Cigarette/Vaping Use: Never Used Second Hand Smoke Exposure: No service: No Current occupational status: employed 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 Mallampati stage IV Mild bilateral posterior cervical tightness, with limited cervical range of motion, more so in extension. Negative bilateral Spurling General: patient oriented x3 Cranial nerves: Yes CN's II-XII intact bilaterally Cognition (Neuro): normal cognition Gait exam (Neuro): Normal gait present Motor exam (neuro): 5/5 motor strength present throughout Deep tendon reflexes (DTR's): Right triceps reflex intensity grade: 2+, Left triceps reflex intensity grade: 1+, Rt Biceps (C5, C6): 1+, Left biceps reflex intensity grade: 1+, Right brachioradialis reflex intensity grade: 1+, Left brachioradialis reflex intensity grade: 1+, Right patellar reflex intensity grade: 1+ and Left patellar reflex intensity grade: 1+ Coordination: [id number] test normal, tandem gait normal and Romberg test negative Pupils: Normal pupillary reactivity/response: bilateral Psych Appearance: grossly normal Mental Status: mental status grossly normal Speech and movement: Normal speech and movement present Affect: normal affect Attitude: cooperative Thought process: Normal thought process present Assessment & Plan Assessment & Plan (1) New onset headache: Code(s): R51.9 - Headache, unspecified Category: Medical (2) Left-sided headache: Code(s): R51.9 - Headache, unspecified Category: Medical (3) Sleep difficulties: Comment: [place] sleepiness scale 10 Code(s): G47.9 - Sleep disorder, unspecified Category: Medical (4) Snoring: Code(s): R06.83 - Snoring Category: Medical (5) Fatigue: Code(s): R53.83 - Other fatigue Category: Medical Qualifiers: Fatigue type: unspecified Qualified Code(s): R53.83 - Other fatigue (6) Weight gain: Code(s): R63.5 - Abnormal weight gain Category: Medical (7) Anemia: Code(s): D64.9 - Anemia, unspecified Category: Medical Qualifiers: Anemia type: unspecified type Qualified Code(s): D64.9 - Anemia, unspecified Plan Discussion Notes During the visit, I discussed with the patient the possibility of migraines, considering the family history and the characteristics of her headaches. However, as patient is experiencing you new left side locked headache which started after the age of 51, and MRI was recommended to rule out any structural causes of her headaches. I also recommended a home sleep study to evaluate her sleep disturbances further. Comprehensive blood tests, including CBC and iron levels, will also be ordered, given past references to potential anemia. We discussed the potential benefits of starting magnesium and vitamin B2 supplementation to help prevent headaches, noting possible gastrointestinal side effects. The patient agreed to these plans and will be contacted for follow-up appointments upon receipt of results. Patient was informed and verbally consented to the use of an ambient scribe for clinic note documentation during this visit. You are advised to undergo: * Brain MRI with and without contrast * Home sleep study to assess for sleep apnea * Fasting lab workup For overall headache management: * Optimize good self-care, including but not limited to maintaining a healthy diet, adequate fluid intake, adequate sleep, and engaging in regular physical activity. * Track headaches and both positive and negative effects of your headache treatment trials, especially after any treatment regimen changes. * Migraine BudCollarity is one of many headache tracking apps. * A simple paper calendar is also a good option. * Non-pharmacological interventions which may help to alleviate your headache attack frequency, severity, and associated symptoms: For light sensitivity: You may benefit from trying blue light or FL-41 blue light filtering glasses, green glasses, green light therapy. For sound sensitivity: You may benefit from trying noise cancellation ear plugs. For acute (as needed) headache treatment: It is important to take acute medications at the first sign of headache. However, please be aware that frequently using most acute medications may increase the frequency of your headache attacks, as well as make your other treatments less effective.. * Continue Tylenol 1000 mg every 6 hours as needed * Previous acute migraine medication trials: None other * Acute migraine medication contraindications: None at this time For headache prevention medication: Preventative medications should be taken routinely as prescribed for best effect, it may take several weeks for full effect to take effect. * Start Riboflavin 400mg daily in the morning * This is generally well tolerated, however some people may experience mild abdominal discomfort from use. * This will cause your urine to become bright yellow or orange, which is expected and not of any concern. * Start Magnesium 400mg daily at bedtime * Magnesium comes in many subtypes, such as magnesium oxide, glycinate, citrate, and even try magnesium combinations. Additionally magnesium comes in many forms, including tablets, capsules, powders or even liquid formulations. There is not a specific magnesium subtype or form known to be significantly more effective than another. Rather, the magnesium subtype inform that you best tolerate, is the best version for you. * Possible side effects of magnesium include, but are not limited to, GI upset, abdominal cramping, loose stools, and diarrhea * Previous migraine prevention medication trials: None * Migraine prevention medication contraindications: None at this time If you have not yet, we encourage you to enroll in the [facility] patient portal. We will follow-up upon review of above and with a follow-up clinic visit in 3-6 months or sooner as needed. Orders: Orders RT home sleep study 07/01/25 G47.9 - Sleep disorder, unspecified, R06.83 - Snoring, R53.83 - Other fatigue, R63.5 - Abnormal weight gain MR head/brain wo/w con 07/01/25 H53.8 - Other visual disturbances, R51.9 - Headache, unspecified, R63.5 - Abnormal weight gain, R76.8 - Other specified abnormal immunological findings in serum Complete Blood Count Auto Diff 07/03/25 D64.9 - Anemia, unspecified, R51.9 - Headache, unspecified, R53.83 - Other fatigue, R63.5 - Abnormal weight gain, R76.8 - Other specified abnormal immunological findings in serum IRON PROFILE 07/03/25 D64.9 - Anemia, unspecified, R51.9 - Headache, unspecified, R53.83 - Other fatigue, R63.5 - Abnormal weight gain, R76.8 - Other specified abnormal immunological findings in serum Erythrocyte Sedimentation Rate 07/03/25 D64.9 - Anemia, unspecified, R51.9 - Headache, unspecified, R53.83 - Other fatigue, R63.5 - Abnormal weight gain, R76.8 - Other specified abnormal immunological findings in serum Magnesium 07/03/25 D64.9 - Anemia, unspecified, R51.9 - Headache, unspecified, R53.83 - Other fatigue, R63.5 - Abnormal weight gain, R76.8 - Other specified abnormal immunological findings in serum Vitamin B12 and Folate 07/03/25 D64.9 - Anemia, unspecified, R51.9 - Headache, unspecified, R53.83 - Other fatigue, R63.5 - Abnormal weight gain, R76.8 - Other specified abnormal immunological findings in serum C Reactive Protein 07/03/25 D64.9 - Anemia, unspecified, R51.9 - Headache, unspecified, R53.83 - Other fatigue, R63.5 - Abnormal weight gain, R76.8 - Other specified abnormal immunological findings in serum Comprehensive [place]. Panel Fast 07/03/25 D64.9 - Anemia, unspecified, R51.9 - Headache, unspecified, R53.83 - Other fatigue, R63.5 - Abnormal weight gain, R76.8 - Other specified abnormal immunological findings in serum Ferritin 07/03/25 D64.9 - Anemia, unspecified, R51.9 - Headache, unspecified, R53.83 - Other fatigue, R63.5 - Abnormal weight gain, R76.8 - Other specified abnormal immunological findings in serum Homocysteine 07/03/25 D64.9 - Anemia, unspecified, R51.9 - Headache, unspecified, R53.83 - Other fatigue, R63.5 - Abnormal weight gain, R76.8 - Other specified abnormal immunological findings in serum Medications: New riboflavin (vitamin B2) 400 mg PO DAILY 90 tabs 3RF 90 days magnesium oxide may hold for loose stools 400 mg PO BEDTIME 90 tabs 3RF 90 days acetaminophen (Tylenol Extra Strength) 1,000 mg (2 x 500 mg) PO Q6H PRN 60 tabs 6RF pain 30 days MDD 3,000 mg Coding Level of Care Code New Pt Level 4 (53069) Diagnoses New onset headache R51.9 Left-sided headache R51.9 Sleep difficulties G47.9 Snoring R06.83 Fatigue, unspecified type R53.83 Fatigue type: unspecified Weight gain R63.5 Anemia, unspecified type D64.9 Anemia type: unspecified type
[2025-07-01 10:16] VITALS: BP 118/60; PULSE 72; O2SAT 97; BMI 37.7
--- OUTSIDE RECORDS SUMMARY | 2025-07-01 11:25 | XMS_ITS | Patient Health Record ---
Author Organization [facility] Address [address] [place] [address] Care Team Providers Care Keno Clerk Name Role Phone Nubia Duran Primary Care [...] Problem Status W/U Status Risk Notes Problem [id number] Rectal bleeding (K62.5) Active confirmed Plan Of Treatment Future Test Test Name Order Date COLONOSCOPY 04/20/2022 Insurance Providers Payer Name Payer Address Payer Phone Subscriber Number Group Number Insured Name Patient Relationship to Insured Coverage Start Date Coverage End Date [facility] [address] [address] [place], [place] [id number] EMILY SHERIFF Self - patient is the insured Medical (General) History Medical History History ICD Code Denies NM,DM,CVA,Lung disease,renal dise ase Surgical History Surgery Date(Month/Year) Varicose vein surgery section tubal ligation
--- OUTSIDE RECORDS SUMMARY | 2025-07-01 11:25 | XMS_ITS | Encounter Summary ---
Author Organization [employer] Address [address] [facility] 7t [place] [address] Care Team Providers Care Thermal Spray Operator Name Role Phone Unavailable Primary Care Provider Unavailabl e Encounter Details Date Type Department Care Team (Late st Contact Info) Description 12/30/[address] [facility] ADULT DENTAL [address] [place] [address] Boni Orta DDS [address] [place] [address] Social History Tobacco Use Types Packs/Day Years [...]
--- OUTSIDE RECORDS SUMMARY | 2025-07-01 11:25 | XMS_ITS | Encounter Summary ---
Author Organization [employer] Address [address] [facility] [address]t [place] [address] Care Team Providers Care Pit Operator Name Role Phone Unavailable Primary Care Provider Unavailabl e Encounter Details Date Type Department Care Team (Latest Contact Info) Description 09/27/2022 Abstract [facility] CONVERSIONS Dental, Provider, DDS Social History [...]
--- OUTSIDE RECORDS SUMMARY | 2025-07-01 11:25 | XMS_ITS | Encounter Summary ---
Author Organization [employer] Address [address] [facility] [address]t [place] [address] Care Team Providers Care Barn Worker Name Role Phone Unavailable Primary Care Provider Unavailabl e Encounter Details Date Type Department Care Team (Late st Contact Info) Description 12/30/2022 Abstract [facility] ADULT DENTAL [address] [place] [address] Boni Orta DDS [address] [place] [address] Social History Tobacco Use Types Packs/Day Years [...]
--- OUTSIDE RECORDS SUMMARY | 2025-07-01 11:25 | XMS_ITS | Encounter Summary ---
Author Organization [email or web address] Address [address] [facility] 7t [place] [address] Care Team Providers Care Ramp Lead Name Role Phone Unavailable Primary Care Provider Unavailabl e Encounter Details Date Type Department Care Team (Late st Contact Info) Description 11/07/2022 Abstract [facility] ADULT DENTAL [address] [place] [address] Boni Orta DDS [address] [place], [place] [id number] Social History Tobacco Use Types Packs/Day Years [...]
--- OUTSIDE RECORDS SUMMARY | 2025-07-01 11:25 | XMS_ITS | Encounter Summary ---
Author Organization [employer] Address [address] [facility] [address] [place] [address] Care Team Providers Care Crap Shooter Name Role Phone Unavailable Primary Care Provider Unavailabl e Encounter Details Date Type Department Care Team (Late st Contact Info) Description 12/30/2022 Abstract [facility] ADULT DENTAL [address] [place] [address] Boni Orta DDS [address] [place] [address] Social History Tobacco Use Types Packs/Day Years [...]
--- OUTSIDE RECORDS SUMMARY | 2025-07-01 11:25 | XMS_ITS | Clinical Summary ---
Author Organization [employer] Address [address] [facility] [address]t [place] [address] Care Team Providers Care Python Programmer Name Role Phone Unavailable Primary Care Provider [...] Screening 1971 SDOH Screening 1971 Sigmoidoscopy 1971 Disability Screening 1971 Alcohol/Substance Use Screening 1983 Hepatitis C [...] season) 2024 10/11/2021, 09/20/2021 Influenza Vaccine (#1) 2025 , 10/02/2015 DTaP/Tdap/Td Vaccines (2 - T [...] patient's age to complete this topic Insurance [facility] MED[facility] STAND ADULT
--- OUTSIDE RECORDS SUMMARY | 2025-07-01 11:25 | XMS_ITS | Clinical Summary ---
Author Organization [facility] [employer] Address [address] [place] [address] Care Team Providers Care Senior Software Engineer Name Role Phone Unavailable Primary Care [...] 11/24/2023 Social Influencers of Health Screening 11/24/2023 Depression Screening 10/30/2024 COVID-19 Vaccine ( - 2023-2 5 season) 2025 Influenza Vaccine (#1) 2025 HIB Vaccines Aged [...]
--- OUTSIDE RECORDS SUMMARY | 2025-07-01 11:25 | XMS_ITS | Encounter Summary ---
Author Organization [employer] Address [address] [facility] [address]t [place] [address] Care Team Providers Care Funeral Driver Name Role Phone Unavailable Primary Care Provider Unavailabl e Encounter Details Date Type Department Care Team (Late st Contact Info) Description 12/30/2022 Abstract [facility] ADULT DENTAL [address] [place] [address] Ketty Greene [address] [place] [address] Social History Tobacco Use Types Packs/Day Years [...]
== END 2025-07-01 11:20 | disposition home or self-care (01) ==
LOC: HO.HSMS 10:03
PROVIDERS: PCP Nurse Practitioner Family; Visit Provider Nurse Practitioner Family
DX: R51.9 Headache, unspecified (principal); G47.9 Sleep disorder, unspecified; R06.83 Snoring; R53.83 Other fatigue; R63.5 Abnormal weight gain; D64.9 Anemia, unspecified
CPT/HCPCS: 99204

== ENCOUNTER → 2025-07-01 10:02 | Outpatient (BNVA) | payer OTHER, SELFPAY | PROVIDERS: PCP Nurse Practitioner Family; Visit Provider Nurse Practitioner Family | DX: R06.83 Snoring (principal); R51.9 Headache, unspecified; G47.9 Sleep disorder, unspecified; R53.83 Other fatigue; R63.5 Abnormal weight gain; D64.9 Anemia, unspecified; H53.8 Other visual disturbances | CPT/HCPCS: 99202 ==

== ENCOUNTER 2025-07-03 11:08 | Outpatient (REF) | payer OTHER, SELFPAY ==
[2025-07-03 11:29] LABS: MANUAL DIFF FLAG NO
[2025-07-03 12:06] LABS: Hematocrit 36.1 % (37.0-47.0); Hemoglobin 12.2 g/dl (12.0-16.0); Imm Gran Abs Auto 0.02 X10*3/uL (0.00-0.03); Imm Gran Pct Auto 0.3 % (0.0-0.4); Lymphocytes Absolute Auto 2.4 X10*3/uL (1.2-4.9); Mean Corpuscular HGB Conc 33.8 g/dl (31.0-35.0); Mean Corpuscular Hemoglobin 27.2 pg (27.0-33.0); Mean Corpuscular Volume 80.6 fL (80.0-98.0); NRBC Abs Auto 0.000 X10*3/uL (0.0-0.012); NRBC Pct Auto 0.0 /100WBC (0.0-0.2); Platelet Count 223 X10*3/uL (160-400); Red Blood Count 4.48 X10*6/uL (4.20-5.50); White Blood Count 7.4 X10*3/uL (4.8-10.8)
[2025-07-03 12:37] LABS: Alanine Aminotransferase 17 U/L (0-31); Albumin Level 4.4 g/dL (3.5-5.0); Alkaline Phosphatase 60 U/L (39-117); Anion Gap 12 (12-20); Aspartate Amino Transferase 20 U/L (5-31); Blood Urea Nitrogen 13 mg/dL (9-16); Calcium 8.9 mg/dL (8.4-10.2); Carbon Dioxide 26 mmol/L (22-29); Chloride 105 mmol/L (96-108); Estimated Glomerular Filt Rate > 60; Iron 77 mcg/dL (30-160); Magnesium 1.9 mg/dL (1.6-2.6); Percent Iron Saturation 20 % (15-50); Potassium 4.2 mmol/L (3.3-5.1); Sodium 139 mmol/L (135-145); Total Iron Binding Capacity 379 mcg/dL (228-428); Total Protein 7.2 g/dL (6.5-8.0); Unsaturated Iron Binding 302 ug/dL
--- OUTSIDE RECORDS SUMMARY | 2025-07-03 12:47 | XMS_ITS | Patient Health Record ---
Author Organization [facility] Address [address] [place] [address] Care Team Providers Care Manufacturing Technology Analyst Name Role Phone Nubia Duran Primary Care [...] Problem Status W/U Status Risk Notes Problem [id number] Rectal bleeding (K62.5) Active confirmed Plan Of Treatment Future Test Test Name Order Date COLONOSCOPY 04/20/2022 Insurance Providers Payer Name Payer Address Payer Phone Subscriber Number Group Number Insured Name Patient Relationship to Insured Coverage Start Date Coverage End Date [facility] [employer] [facility] [address] [address] [place], [place] [id number] EMILY SHERIFF Self - patient is the insured Medical (General) History Medical History History ICD Code Denies AR,DM,CVA,Lung disease,renal dise ase Surgical History Surgery Date(Month/Year) Varicose vein surgery section tubal ligation
--- OUTSIDE RECORDS SUMMARY | 2025-07-03 12:47 | XMS_ITS | Encounter Summary ---
Author Organization [employer] Address [address] [facility] 7t [place] [address] Care Team Providers Care Health Practice Manager Name Role Phone Unavailable Primary Care Provider Unavailabl e Encounter Details Date Type Department Care Team (Late st Contact Info) Description 12/30/[address] [facility] ADULT DENTAL [address] [place] [address] Ketty Greene [address] [place] [address] Social History Tobacco Use Types Packs/Day Years [...]
--- OUTSIDE RECORDS SUMMARY | 2025-07-03 12:47 | XMS_ITS | Encounter Summary ---
Author Organization [employer] Address [address] [facility] [address]t [place] [address] Care Team Providers Care Electrical Tryout Person Name Role Phone Unavailable Primary Care Provider Unavailabl e Encounter Details Date Type Department Care Team (Late st Contact Info) Description 11/07/2022 Abstract [facility] ADULT DENTAL [address] [place] [address] Boni Orta DDS [address] [place], [place] [phone] Social History Tobacco Use Types Packs/Day Years [...]
--- OUTSIDE RECORDS SUMMARY | 2025-07-03 12:47 | XMS_ITS | Encounter Summary ---
Author Organization [employer] Address [address] [facility] [address] [place] [address] Care Team Providers Care Web Marketing Intern Name Role Phone Unavailable Primary Care Provider Unavailabl e Encounter Details Date Type Department Care Team (Late st Contact Info) Description 12/30/2022 Abstract [facility] ADULT DENTAL [address] [place] [address] Boni Orta DDS [address] [place] [address] Social History Tobacco Use Types Packs/Day Years [...]
--- OUTSIDE RECORDS SUMMARY | 2025-07-03 12:47 | XMS_ITS | Encounter Summary ---
Author Organization [employer] Address [address] [facility] [address]t [place] [address] Care Team Providers Care Computer Information Systems Professor Name Role Phone Unavailable Primary Care Provider Unavailabl e Encounter Details Date Type Department Care Team (Latest Contact Info) Description 09/27/2022 Abstract [facility] CONVERSIONS Dental, Provider, DDS Social History [...]
--- OUTSIDE RECORDS SUMMARY | 2025-07-03 12:47 | XMS_ITS | Encounter Summary ---
Author Organization [employer] Address [address] [facility] [address] [place] [address] Care Team Providers Care Configuration Engineer Name Role Phone Unavailable Primary Care Provider Unavailabl e Encounter Details Date Type Department Care Team (Late st Contact Info) Description 12/30/2022 Abstract [facility] ADULT DENTAL [address] [place] [address] Boni Orta DDS [address] [place] [address] Social History Tobacco Use Types Packs/Day Years [...]
--- OUTSIDE RECORDS SUMMARY | 2025-07-03 12:47 | XMS_ITS | Clinical Summary ---
Author Organization [facility] Address [address] [place] [address] Care Team Providers Care Learning And Development Analyst Name Role Phone Unavailable Primary Care [...]
--- OUTSIDE RECORDS SUMMARY | 2025-07-03 12:47 | XMS_ITS | Encounter Summary ---
Author Organization [employer] Address [address] [facility] [address]t [place] [address] Care Team Providers Care Grain Operator Name Role Phone Unavailable Primary Care Provider Unavailabl e Encounter Details Date Type Department Care Team (Late st Contact Info) Description 12/30/2022 Abstract [facility] ADULT DENTAL [address] [place] [address] Boni Orta DDS [address] [place] [address] Social History Tobacco Use Types Packs/Day Years [...]
--- OUTSIDE RECORDS SUMMARY | 2025-07-03 12:47 | XMS_ITS | Clinical Summary ---
Author Organization [employer] Address [address] [facility] [address] [place] [address] Care Team Providers Care Lofter Name Role Phone Unavailable Primary Care Provider [...] patient's age to complete this topic Insurance [facility] STAND ADULT
[2025-07-03 12:53] LABS: Ferritin 12 ng/mL (10-250)
[2025-07-03 13:04] LABS: Folate 14.4 ng/mL (> or = 4.0); Vitamin B12 505 pg/mL (200-900)
== END 2025-07-03 11:09 | disposition home or self-care (01) ==
LOC: HO.LAB 11:08
PROVIDERS: PCP Nurse Practitioner Family; Visit Provider Nurse Practitioner Family
DX: R63.5 Abnormal weight gain (principal); D64.9 Anemia, unspecified; R51.9 Headache, unspecified; R53.83 Other fatigue; R76.8 Other specified abnormal immunological findings in serum
CPT/HCPCS: 36415; 80053; 82607; 82728; 82746; 83090; 83540; 83735; 85025; 85652; 86140

== ENCOUNTER 2025-07-15 10:00 | Outpatient (RCR) | payer OTHER, SELFPAY ==
--- NOTE | 2025-06-05 16:29 | MHC.PT.EP ---
[facility] [place] [address] Office [place] Office [address] Mariella Rothman [address] [phone] F: [phone] F: [phone] F: [phone] F: [phone] Physical Therapy Plan of Care Date of Evaluation: 06/05/25 Date of Surgery: Diagnosis: spondylosis lumbar region (MD Dx) lumbar radiculopathy L5-S1 worse on R (PT Dx) RS Assessment: Brittany Hughes (: 71) is a pleasant 54 y.o. female who is referred to PT by Dr. Kim Dhaliwal MD, with Dx of spondylosis lumbar region. PT Diagnosis is lumbar radiculopathy L5-S1 worse on R. Patient impairments include pain, poor seated posture, antalgic gait with compensations, limited lumbar AROM, R LE radiculopathy, weakness bilateral LEs. Patient current functional limitations are walking, prolonged time to shower or cook, get dressed, unable to work. Patient will benefit from skilled PT to address aforementioned impairments and functional limitations to meet established goals. Frequency and Duration: The patient will be seen 2x/ week for 4 weeks Short Term Goals: 2 weeks Patient demonstrates consistency and independence with HEP to self manage symptoms. Job Development Specialist Goals: 4 weeks Patient presents with increased lumbar spine sidebending AROM 20 degrees bilaterally to improve lower body dressing. Patient presents with increased R hip flexion 4+/5 to be able to bend/squat for ADLs. Treatment Plan: Modalities to reduce pain, spasms and effusion. Manual therapy to restore motion and function. Therapeutic exercise to improve strength and flexibility. Neuromuscular re-education for posture and balance. Therapeutic activities to return to functional activities of daily living. Electronically signed by: Willie Hayden, PT, DPT Please sign and return to therapist. Thank you for your referral.
== END 2025-10-03 11:16 | disposition home or self-care (01) ==
LOC: HO.PT 10:00
PROVIDERS: PCP Nurse Practitioner Family; Visit Provider Physical Medicine & Rehabilitation
DX: M47.816 Spondylosis without myelopathy or radiculopathy, lumbar region (principal); R20.0 Anesthesia of skin
CPT/HCPCS: 97110; 97140; 97161; 97530

== ENCOUNTER 2025-07-17 08:33 | Outpatient (AMB) | payer OTHER, SELFPAY ==
--- NOTE | 2025-07-17 08:34 | A.OFFVIS_ITS ---
Intake Visit Reasons: OV -B/L Lumbar Spine pain F/up after PT Intake Note: Brittany is a 54 year old female who presents today as a follow up for her Bilateral Lumbar Spine pain. At last visit we discussed to start physical therapy. At today's visit she states that physical therapy is going well and that the right lower back pain is still radiating into her right leg. Technical Sales Representative Required: Yes Technical Sales Representative Services: Technical Sales Representative Present Technical Sales Representative Name: [id number] Allergies No Known Allergies Allergy (Verified 07/17/25 08:38) Medication List - Last Reconciled 07/17/25 by Kim Dhaliwal MD acetaminophen (Tylenol Extra Strength) 1,000 mg (2 x 500 mg) PO Q6H PRN 30 days MDD 3,000 mg ascorbic acid (vitamin C) 500 mg PO DAILY 30 days bupropion HCl XL 150 mg PO DAILY celecoxib (Celebrex) 200 mg PO BID 30 days clonidine HCl 0.1 mg PO .QD 90 days escitalopram oxalate 15 mg PO DAILY escitalopram oxalate 5 mg PO DAILY ferrous gluconate 324 mg PO DAILY 90 days magnesium oxide 400 mg PO BEDTIME 90 days multivitamin 1 tab PO DAILY riboflavin (vitamin B2) 400 mg PO DAILY 90 days HPI Comments Details: EMG done by me 03/05/2025 showed possible left chronic L5-S1 radiculopathy. Lumbar x-rays which did show spondylosis. Positive DARBY but negative RF. She has been referred to Rheumatology. She is following Dr. Tang for Carpal Tunnel Syndrome. She complains of numbness on feet and lower back pain. Today she reports back pain is 3/10. Pain is mostly on the legs, pointing today as right leg. It does not matter in terms of positiong. Right knee has been giving out. She denies focal swelling on the right knee. Her last xray as below did show arthritis. She has been going to PT, working on the right leg and lower back, which has been helping for the back pain. [facility] Medical History Abnormal uterine bleeding Carpal tunnel syndrome on both sides Obesity (BMI 35.0-39.9 without comorbidity) External hemorrhoids Lower back pain Anxiety Intermittent palpitations Encounter to establish care Surgical History History of colonoscopy (~2021) Hx of section Hx of tubal ligation Family History Paternal Grandmother Esophageal cancer Son FH: mental illness Substance use disorder Social History Housing: House Alcohol intake: never Patient Tobacco Use Status: Former Tobacco user Tobacco use type: Cigarette Years Smoked: Infrequent e-Cigarette/Vaping Use: Never Used Second Hand Smoke Exposure: No service: No Current occupational status: employed 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 Neurological: Neurologic examination of the upper and lower extremities was nonfocal with intact sensation, muscle stretch reflexes and without focal motor deficits . Astudillo?s negative bilaterally. Gait is non-antalgic without loss of balance. Musculoskeletal: Right knee appear more swollen than the left side. No redness or warmth. Tender on both lateral and medial joint lines. Results Reviewed Results Reviewed: Ordering Physician: Shelbi Jarquin Date of Service: 09/19/24 Procedure(s): XR knee RT 4V Accession Number(s): [id number] cc: Shelbi Jarquin~ EXAMINATION: XR SHOULDER, RIGHT. XR KNEE, RIGHT. CLINICAL INFORMATION: Pain COMPARISON: None. TECHNIQUE: 4 views of the right shoulder. 4 views of the right knee. FINDINGS: Right shoulder: No acute fracture or malalignment. Mild glenohumeral and acromioclavicular osteoarthritis. Right knee: No fracture or malalignment. No joint effusion. Mild patellofemoral compartment osteoarthritis. Patellar enthesopathy. XR/XR knee RT 4V IMPRESSION: RIGHT SHOULDER: No acute osseous abnormality. Mild glenohumeral and acromioclavicular osteoarthritis. RIGHT KNEE: Mild patellofemoral compartment osteoarthritis. Electronically signed by: Adelso Manuel MD 09/19/2024 05:15 PM [facility] Assessment & Plan Assessment & Plan (1) Arthritis of right knee: Code(s): M17.11 - Unilateral primary osteoarthritis, right knee Category: Medical (2) Leg pain: Code(s): M79.606 - Pain in leg, unspecified Category: Medical Qualifiers: Laterality: bilateral Qualified Code(s): M79.604 - Pain in right leg; M79.605 - Pain in left leg (3) Lumbar spondylosis: Code(s): M47.816 - Spondylosis without myelopathy or radiculopathy, lumbar region Category: Medical (4) Numbness in feet: Code(s): R20.0 - Anesthesia of skin Category: Medical (5) Positive DARBY (antinuclear antibody): Code(s): R76.8 - Other specified abnormal immunological findings in serum Category: Medical Plan 1. She maintains that most of her pain nowadays is from the right leg and right knee. Knee x-rays did show moderate osteoarthritis. She is willing to try steroid injection. We will get this scheduled, perhaps with 1 of our orthopedics physician assistants if possible. 2. Chronic possible lumbar radiculopathy, pain tolerable, improved with PT. Low back pain is not her concern at this point. Continue exercises at home. 2. Positive DARBY - seeing rheumatology in September She did ask for prescription for cane. Assessment and plan discussed with patient, and patient was agreeable. All questions were answered thoroughly. Follow up with me 3 months. Kim Dhaliwal MD, SAMUEL Board Certified, [place] Board of Physical Medicine and Rehabilitation (ABPMR) Board Certified, [place] Board of Electrodiagnostic Medicine (ABEM) Medications: New cane As directed 1 ea 0RF Coding Level of Care Code Est Pt Level 4 (58065) Diagnoses Arthritis of right knee M17.11 Pain in both lower extremities M79.604; M79.605 Laterality: bilateral Lumbar spondylosis M47.816 Numbness in feet R20.0 Positive DARBY (antinuclear antibody) R76.8
--- OUTSIDE RECORDS SUMMARY | 2025-07-17 09:46 | XMS_ITS | Encounter Summary ---
Author Organization [employer] Address [address] [facility] [address]t [place] [address] Care Team Providers Care Drapery Sewer Hand Name Role Phone Unavailable Primary Care Provider Unavailabl e Encounter Details Date Type Department Care Team (Late st Contact Info) Description 12/30/2022 Abstract [facility] ADULT DENTAL [address] [place] [address] Boni Orta DDS [address] [place] [address] Social History Tobacco Use Types Packs/Day Years [...]
--- OUTSIDE RECORDS SUMMARY | 2025-07-17 09:46 | XMS_ITS | Patient Health Record ---
Author Organization [facility] Address [address] [place] [address] Care Team Providers Care Bushing And Broach Operator Name Role Phone Nubia Duran Primary Care [...] Problem Status W/U Status Risk Notes Problem [id number] Rectal bleeding (K62.5) Active confirmed Plan Of Treatment Future Test Test Name Order Date COLONOSCOPY 04/20/2022 Insurance Providers Payer Name Payer Address Payer Phone Subscriber Number Group Number Insured Name Patient Relationship to Insured Coverage Start Date Coverage End Date [facility] [address] [address] [place], [place] [phone] [id number] EMILY SHERIFF Self - patient is the insured Medical (General) History Medical History History ICD Code Denies ID,DM,CVA,Lung disease,renal dise ase Surgical History Surgery Date(Month/Year) Varicose vein surgery section tubal ligation
--- OUTSIDE RECORDS SUMMARY | 2025-07-17 09:46 | XMS_ITS | Encounter Summary ---
Author Organization [employer] Address [address] [facility] [address] [place] [address] Care Team Providers Care Jewelry Maker Name Role Phone Unavailable Primary Care Provider Unavailabl e Encounter Details Date Type Department Care Team (Latest Contact Info) Description 09/27/[address] [facility] CONVERSIONS Dental, Provider, DDS Social [...]
--- OUTSIDE RECORDS SUMMARY | 2025-07-17 09:46 | XMS_ITS | Encounter Summary ---
Author Organization [employer] Address [address] [facility] [address] [place] [address] Care Team Providers Care Faro Dealer Name Role Phone Unavailable Primary Care Provider Unavailabl e Encounter Details Date Type Department Care Team (Late st Contact Info) Description 12/30/2022 Abstract [facility] ADULT DENTAL [address] [place] [address] Boni Orta DDS [address] [place] [address] Social History Tobacco Use Types Packs/Day Years [...]
--- OUTSIDE RECORDS SUMMARY | 2025-07-17 09:46 | XMS_ITS | Clinical Summary ---
Author Organization [facility] Address [address] [place] [address] Care Team Providers Care Health Coach Name Role Phone Unavailable Primary Care Provider [...]
--- OUTSIDE RECORDS SUMMARY | 2025-07-17 09:46 | XMS_ITS | Clinical Summary ---
Author Organization [employer] Address [address] [facility] 7t [place] [address] Care Team Providers Care Electronics Detail Draftsperson Name Role Phone Unavailable Primary Care Provider [...] topic Meningococcal Vaccine Aged Out No won wilaim eligible based on patient's age to complete this topic RSV under 20 months Aged Out No longe r eligible based on patient's age to complete this topic Rotavirus Vaccines Aged Out No longer eligible based on patient's age to complete this topic Insurance [facility] ST[facility]
--- OUTSIDE RECORDS SUMMARY | 2025-07-17 09:46 | XMS_ITS | Encounter Summary ---
Author Organization [employer] Address [address] [facility] [address] [place] [address] Care Team Providers Care Law Professor Name Role Phone Unavailable Primary Care Provider Unavailabl e Encounter Details Date Type Department Care Team (Late st Contact Info) Description 11/07/2022 Abstract [facility] ADULT DENTAL [address] [place] [address] Boni Orta DDS [address] [place], [place] [id number] Social History Tobacco Use Types Packs/Day Years [...]
--- OUTSIDE RECORDS SUMMARY | 2025-07-17 09:46 | XMS_ITS | Encounter Summary ---
Author Organization [employer] Address [address] [facility] [address] [place] [address] Care Team Providers Care Speed Operator Name Role Phone Unavailable Primary Care Provider Unavailabl e Encounter Details Date Type Department Care Team (Late st Contact Info) Description 12/30/2022 Abstract [facility] ADULT DENTAL [address] [place] [address] Ketty Greene [address] [place] [address] Social History Tobacco Use Types Packs/Day Years [...]
--- OUTSIDE RECORDS SUMMARY | 2025-07-17 09:46 | XMS_ITS | Encounter Summary ---
Author Organization [employer] Address [address] [facility] [address]t [place] [address] Care Team Providers Care Set Designer Name Role Phone Unavailable Primary Care Provider Unavailabl e Encounter Details Date Type Department Care Team (Late st Contact Info) Description 12/30/2022 Abstract [facility] ADULT DENTAL [address] [place] [address] Boni Orta DDS [address] [place] [address] Social History Tobacco Use Types Packs/Day Years [...]
== END 2025-07-17 09:00 | disposition home or self-care (01) ==
LOC: HO.HOS 08:33
PROVIDERS: PCP Nurse Practitioner Family; Visit Provider Physical Medicine & Rehabilitation
DX: M17.11 Unilateral primary osteoarthritis, right knee (principal); M79.604 Pain in right leg; M79.605 Pain in left leg; M47.816 Spondylosis without myelopathy or radiculopathy, lumbar region; R20.0 Anesthesia of skin; R76.8 Other specified abnormal immunological findings in serum
CPT/HCPCS: 99214

== ENCOUNTER → 2025-07-17 08:33 | Outpatient (BNVA) | payer OTHER, SELFPAY | PROVIDERS: PCP Nurse Practitioner Family; Visit Provider Physical Medicine & Rehabilitation | DX: M47.816 Spondylosis without myelopathy or radiculopathy, lumbar region (principal); M17.11 Unilateral primary osteoarthritis, right knee; M79.604 Pain in right leg; M79.605 Pain in left leg; R20.0 Anesthesia of skin; R76.8 Other specified abnormal immunological findings in serum | CPT/HCPCS: 99212 ==

== ENCOUNTER 2025-07-21 07:42 | Day surgery (SDC) | payer OTHER, SELFPAY ==
--- OUTSIDE RECORDS SUMMARY | 2025-07-11 16:05 | XMS_ITS | Encounter Summary ---
Author Organization [employer] Address [address] [facility] [address] [place] [address] Care Team Providers Care Publication Distributor Name Role Phone Unavailable Primary Care Provider Unavailabl e Encounter Details Date Type Department Care Team (Late st Contact Info) Description 12/30/[address] [facility] ADULT DENTAL [address] [place] [address] Ketty Greene [address] [place] [address] Social History Tobacco Use Types Packs/Day Years [...]
--- OUTSIDE RECORDS SUMMARY | 2025-07-11 16:05 | XMS_ITS | Encounter Summary ---
Author Organization [employer] Address [address] [facility] [address]t [place] [address] Care Team Providers Care Loans Consultant Name Role Phone Unavailable Primary Care Provider Unavailabl e Encounter Details Date Type Department Care Team (Latest Contact Info) Description 09/27/2022 Abstract [facility] CONVERSIONS Dental, Provider, DDS Social History [...]
--- OUTSIDE RECORDS SUMMARY | 2025-07-11 16:05 | XMS_ITS | Encounter Summary ---
Author Organization [employer] Address [address] [facility] [address] [place] [address] Care Team Providers Care Fire Extinguisher Charger Name Role Phone Unavailable Primary Care Provider Unavailabl e Encounter Details Date Type Department Care Team (Late st Contact Info) Description 11/07/2022 Abstract [facility] ADULT DENTAL [address] [place] [address] Boni Orta DDS [address] [place], [place] [id number] Social History Tobacco Use Types Packs/Day Years [...]
--- OUTSIDE RECORDS SUMMARY | 2025-07-11 16:05 | XMS_ITS | Clinical Summary ---
Author Organization [facility] Address [address] [place] [address] Care Team Providers Care Cabin Furnishings Installer Name Role Phone Unavailable Primary Care Provider [...]
--- OUTSIDE RECORDS SUMMARY | 2025-07-11 16:05 | XMS_ITS | Encounter Summary ---
Author Organization [employer] Address [address] [facility] 7[address] [place] [address] Care Team Providers Care Home Theater Experience Expert Name Role Phone Unavailable Primary Care Provider Unavailabl e Encounter Details Date Type Department Care Team (Late st Contact Info) Description 12/30/2022 Abstract [facility] ADULT DENTAL [address] [place] [address] Boni Orta DDS [address] [place] [address] Social History Tobacco Use Types Packs/Day Years [...]
--- OUTSIDE RECORDS SUMMARY | 2025-07-11 16:05 | XMS_ITS | Encounter Summary ---
Author Organization [employer] Address [address] [facility] [address] [place] [address] Care Team Providers Care Fiberglass Technician Name Role Phone Unavailable Primary Care Provider Unavailabl e Encounter Details Date Type Department Care Team (Late st Contact Info) Description 12/30/2022 Abstract [facility] ADULT DENTAL [address] [place] [address] Boni Orta DDS [address] [place] [address] Social History Tobacco Use Types Packs/Day Years [...]
--- OUTSIDE RECORDS SUMMARY | 2025-07-11 16:05 | XMS_ITS | Encounter Summary ---
Author Organization [employer] Address [address] [facility] [address] [place] [address] Care Team Providers Care Raspberry Checker Name Role Phone Unavailable Primary Care Provider Unavailabl e Encounter Details Date Type Department Care Team (Late st Contact Info) Description 12/30/2022 Abstract [facility] ADULT DENTAL [address] [place] [address] Boni Orta DDS [address] [place] [address] Social History Tobacco Use Types Packs/Day Years [...]
--- OUTSIDE RECORDS SUMMARY | 2025-07-11 16:06 | XMS_ITS | Patient Health Record ---
Author Organization [facility] Address [address] [place] [address] Care Team Providers Care Aerial Lineman Name Role Phone Nubia Duran Primary Care [...] Problem Status W/U Status Risk Notes Problem [id number] Rectal bleeding (K62.5) Active confirmed Plan Of Treatment Future Test Test Name Order Date COLONOSCOPY 04/20/2022 Insurance Providers Payer Name Payer Address Payer Phone Subscriber Number Group Number Insured Name Patient Relationship to Insured Coverage Start Date Coverage End Date [facility] [employer] [facility] [address] [address] [place], [place] [phone] [id number] EMILY SHERIFF Self - patient is the insured Medical (General) History Medical History History ICD Code Denies NC,DM,CVA,Lung disease,renal dise ase Surgical History Surgery Date(Month/Year) Varicose vein surgery section tubal ligation
--- OUTSIDE RECORDS SUMMARY | 2025-07-11 16:06 | XMS_ITS | Clinical Summary ---
Author Organization [employer] Address [address] [facility] [address] [place] [address] Care Team Providers Care Laboratory Sampler Name Role Phone Unavailable Primary Care Provider [...] Screening 12/31/2023 12/30/2022 COVID-19 Vaccine (3 - 2024-2 6 season) 2025 10/11/2021, 09/20/2021 Influenza Vaccine (#1) 2025 , [...] patient's age to complete this topic Insurance [facility] STAND ADULT
[2025-07-21 08:07] VITALS: BP 123/64; PULSE 95; RESP 12; TEMP 36.4; O2SAT 94
--- NOTE | 2025-07-21 09:19 | MHC.SHP ---
Pre-Procedural Eval Section A - 24 Hr Update-Section A only Date of Service: 07/21/25 The patient is an INPATIENT: No Changes since office visit: No Cold of Flu in the past 2 weeks, No New Medical Problems, No Changes in Medication and No Patient answered all questions The patient has been examined within 24 hours of the surgical procedure. The History & Physical has been completed within 30 days and I have reviewed it.: Yes Section B - Complete if H&P > 30 days Chief Complaint: Carpal tunnel syndrome, right upper limb Allergies: Allergies Allergy/AdvReac Type Severity Reaction Status Date / Time No Known Allergies Allergy Verified 07/21/25 07:56 Plan I have reviewed the history and physical and performed a pertinent physical examination on my patient. No changes have occurred unless specified. Time Spent With Patient Time: Total time managing care of this patient today ____ minutes.
--- NOTE | 2025-07-21 09:19 | W.PM.OPN ---
Operative Note Operative Note Date of Service: 07/21/25 Narrative: Preop diagnosis: 1. Right Carpal tunnel syndrome Postop diagnosis: same Procedure: 1. Right Carpal tunnel release Surgeon: Maria Alejandra Tang MD Regional Retail Sales Manager: None Anesthesia: local block using 1% lidocaine with epinephrine Findings: Thickened transverse carpal ligament. EBL: Less than 5 mL Specimens: None Complications: None Disposition: Brought to recovery room in stable condition Plan: Follow-up for 10-14 days for wound check and suture removal Indications: The patient is 54 years old, with right carpal tunnel syndrome that has been unresponsive to nonoperative management. The risks and benefits of operative treatment including but not limited to risk of damage to blood vessels, nerves, tendons, infection, persistent pain, persistent symptoms, or possible need for additional surgery were discussed with the patient and the patient wishes to proceed with surgery. Procedure: Once consent was obtained a local block was performed using a combination of 1% lidocaine with epinephrine. The patient was then brought back to the operating suite and placed on the operative table in supine position. The right upper extremity was prepped and draped in a standard surgical fashion. Once assured that we had a good block, a 2.0 cm longitudinal incision was made centered over the carpal tunnel. The incision was made through the skin to the subcutaneous tissues using a #15 blade. Dissection was made down to the level of the transverse carpal ligament with care being taken to protect the palmar cutaneous nerve. Once the transverse carpal ligament was clearly visualized, a longitudinal incision was made in the transverse carpal ligament 1st using a #15 blade, then using tenotomy scissors under direct visualization. Care was taken to look for and protect the motor branch of the median nerve when seen in this area. Once satisfied with our carpal tunnel release the wound was copiously irrigated with normal saline and hemostasis was obtained with a brief period of local pressure. The skin edges were reapproximated with some 5.0 nylon suture material and a sterile dressing was applied. The patient appears to have tolerated the procedure well and with no complications. All digits were well vascularized at the conclusion of the case.
[2025-07-21 10:01] VITALS: BP 104/57; PULSE 78; RESP 16; O2SAT 97
== END 2025-07-21 10:13 | disposition home or self-care (01) ==
PROVIDERS: PCP Nurse Practitioner Family; Visit Provider Orthopaedic Surgery
PROC: (CPT 64721; principal; 2025-07-21 08:30)
DX: G56.01 Carpal tunnel syndrome, right upper limb (principal); R20.0 Anesthesia of skin; R20.2 Paresthesia of skin; R00.2 Palpitations; F41.9 Anxiety disorder, unspecified; E66.9 Obesity, unspecified; Z68.37 Body mass index [BMI] 37.0-37.9, adult; N93.9 Abnormal uterine and vaginal bleeding, unspecified; Z98.51 Tubal ligation status; Z87.891 Personal history of nicotine dependence
CPT/HCPCS: 64721; J0165; J2003

== ENCOUNTER → 2025-07-21 07:42 | Outpatient (BNV) | payer OTHER, SELFPAY | PROVIDERS: PCP Nurse Practitioner Family; Visit Provider Orthopaedic Surgery | DX: G56.01 Carpal tunnel syndrome, right upper limb (principal) | CPT/HCPCS: 64721 ==

== ENCOUNTER 2025-08-05 09:14 | Outpatient (AMB) | payer OTHER, SELFPAY ==
[2025-08-05 09:16] VITALS: BMI 37.7
--- NOTE | 2025-08-05 09:16 | MHC.OFFVIS ---
Vital Signs 08/05/25 09:16 Height 5 ft 3 in Weight 213 lb BMI 37.7 Intake Visit Reasons: PO RT CTR 07/21/25 AR Intake Note: Li is a 54 year old right hand dominant Romansh speaking female who presents today for her first post operative visit s/p Right Carpal Tunnel Release 07/21/25. Patient reported that she is still having numbness on her palm that goes to her fingers. She notices some improvements in her pain. Computer Typesetter Keyliner Required: Yes Computer Typesetter Keyliner Name: [id number] Allergies No Known Allergies Allergy (Verified 08/05/25 09:23) HPI HPI PO RT CTR 07/21/25 AR: Details: Ms. Hughes is a 54-year-old right-hand dominant female who presents to the office today status post right wrist carpal tunnel release performed on 07/21/[address] Tang. Prior to surgery the patient reported numbness and tingling that occurred daily that waxed and waned making it difficult to clipper automatic squeeze an open/closed lids. Her symptoms were worse at night. Postoperatively, the patient reports that she continues to have numbness in the palm that goes to her fingers with associated numbness that goes to 5 digits depending on positioning. Overall, the patient reports that her symptoms have been improving postoperatively. [facility] Medical History Abnormal uterine bleeding Carpal tunnel syndrome on both sides Obesity (BMI 35.0-39.9 without comorbidity) External hemorrhoids Lower back pain Anxiety Intermittent palpitations Encounter to establish care Surgical History History of colonoscopy (~2021) Hx of section Hx of tubal ligation Family History Paternal Grandmother Esophageal cancer Son FH: mental illness Substance use disorder Social History Housing: House Alcohol intake: never Patient Tobacco Use Status: Former Tobacco user Tobacco use type: Cigarette Years Smoked: Infrequent e-Cigarette/Vaping Use: Never Used Second Hand Smoke Exposure: No service: No Current occupational status: employed 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 Sutures intact. No erythema or drainage. No signs of infection. Able to make a closed fist and extend all digits. Reports intermittent numbness and tingling which was present prior to surgery but has improved. Capillary refill is brisk. Radial pulse intact. Psych Appearance: grossly normal Mental Status: mental status grossly normal Attitude: cooperative Assessment & Plan Assessment & Plan (1) Status post carpal tunnel release: Code(s): Z98.890 - Other specified postprocedural states Category: Surgical Plan Ms. Hughes is a 54-year-old right-hand dominant female who presents to the office today status post right wrist carpal tunnel release performed on 07/21/[address] Tang. Prior to surgery the patient reported numbness and tingling that occurred daily that waxed and waned making it difficult to clipper automatic squeeze an open/closed lids. Her symptoms were worse at night. Postoperatively, the patient reports that she continues to have numbness in the palm that goes to her fingers with associated numbness that goes to 5 digits depending on positioning. Overall, the patient reports that her symptoms have been improving postoperatively. While in the office today sutures removed and Steri-Strips were applied. Patient was educated on no lifting/pushing or than 2 lb for the next 4 weeks, no submerging in any water for 3 weeks postoperatively. Patient should keep the incision site clean dry and intact and may cover with a light dressing when leaving her home for the 1st 2 weeks. It is not recommended that the patient use Band-Aids our gloves for more than 2 hours at a time. Occupational therapy has been ordered to work on range of motion and strengthening of the right wrist and hand. She will follow up with Juan Manuel Matute PA-C after 4 weeks of occupational therapy, sooner if needed. Coding Level of Care Code Global (03804) Diagnoses Status post carpal tunnel release Z98.890
--- OUTSIDE RECORDS SUMMARY | 2025-08-05 10:13 | XMS_ITS | Encounter Summary ---
Author Organization [employer] Address [address] [facility] 7t [place] [address] Care Team Providers Care Votator Machine Operator Name Role Phone Unavailable Primary Care Provider Unavailabl e Encounter Details Date Type Department Care Team (Late st Contact Info) Description 12/30/2022 Abstract [facility] ADULT DENTAL [address] [place] [address] Boni Orta DDS [address] [place] [address] Social History Tobacco Use Types Packs/Day Years [...]
--- OUTSIDE RECORDS SUMMARY | 2025-08-05 10:14 | XMS_ITS | Encounter Summary ---
Author Organization [employer] Address [address] [facility] 7t [place] [address] Care Team Providers Care Dye Lab Technician Name Role Phone Unavailable Primary Care Provider Unavailabl e Encounter Details Date Type Department Care Team (Latest Contact Info) Description 09/27/2022 Abstract [facility] CONVERSIONS Dental, Provider, DDS Social History [...]
--- OUTSIDE RECORDS SUMMARY | 2025-08-05 10:14 | XMS_ITS | Encounter Summary ---
Author Organization [employer] Address [address] [facility] 7t [place] [address] Care Team Providers Care Credit Risk Manager Name Role Phone Unavailable Primary Care Provider Unavailabl e Encounter Details Date Type Department Care Team (Late st Contact Info) Description 12/30/2022 Abstract [facility] ADULT DENTAL [address] [place] [address] Ketty Greene [address] [place] [address] Social History Tobacco Use Types Packs/Day Years [...]
--- OUTSIDE RECORDS SUMMARY | 2025-08-05 10:14 | XMS_ITS | Clinical Summary ---
Author Organization [employer] Address [address] [facility] 7t [place] [address] Care Team Providers Care Digital Media Buyer Name Role Phone Unavailable Primary Care Provider [...] patient's age to complete this topic Insurance [facility] STAND ADULT
--- OUTSIDE RECORDS SUMMARY | 2025-08-05 10:14 | XMS_ITS | Clinical Summary ---
Author Organization [facility] it Address [address] [place] [address] Care Team Providers Care Machine Specialist Name Role Phone Unavailable Primary Care [...] Last Done Comments Breast Cancer Screening 1971 Colorectal Cancer Screening: Colonoscopy 1971 DTaP,Tdap,and Td Vaccines (1 - Tdap) 1990 Hepatitis B Vaccines (1 of 3 - 19+ 3-dose series) 1990 Cervical Cancer Screening: P ap Smear 1992 Pneumococcal Vaccine: 50+ Ye ars (1 of 1 - PCV) 2021 Zoster Vaccines (1 of 2) 2021 HIV Screening 11/24/2023 Hepatitis C Screening 11/24/2023 Social Influencers of Health Screening 11/24/2023 Depression Screening 10/30/2024 COVID-19 Vaccine ( - 2023-2 5 season) 2025 Influenza Vaccine (#1) 2025 RSV Immunization Adult Patie nts (1 - 1-dose 75+ series) 2046 HIB [...]
--- OUTSIDE RECORDS SUMMARY | 2025-08-05 10:14 | XMS_ITS | Patient Health Record ---
Author Organization [facility] Address [address] [place] [address] Care Team Providers Care Online User Experience Strategist Name Role Phone Nubia Duran Primary Care [...] Problem Status W/U Status Risk Notes Problem [id number] Rectal bleeding (K62.5) Active confirmed Plan Of Treatment Future Test Test Name Order Date COLONOSCOPY 04/20/2022 Insurance Providers Payer Name Payer Address Payer Phone Subscriber Number Group Number Insured Name Patient Relationship to Insured Coverage Start Date Coverage End Date [facility] [address] [address] [place], [place] [id number] EMILY SHERIFF Self - patient is the insured Medical (General) History Medical History History ICD Code Denies MO,DM,CVA,Lung disease,renal dise ase Surgical History Surgery Date(Month/Year) Varicose vein surgery section tubal ligation
--- OUTSIDE RECORDS SUMMARY | 2025-08-05 10:14 | XMS_ITS | Encounter Summary ---
Author Organization [employer] Address [address] [facility] 7t [place] [address] Care Team Providers Care Rubber Goods Inspector Name Role Phone Unavailable Primary Care Provider Unavailabl e Encounter Details Date Type Department Care Team (Late st Contact Info) Description 12/30/2022 Abstract [facility] ADULT DENTAL [address] [place] [address] Boni Orta DDS [address] [place] [address] Social History Tobacco Use Types Packs/Day Years [...]
--- OUTSIDE RECORDS SUMMARY | 2025-08-05 10:14 | XMS_ITS | Encounter Summary ---
Author Organization [employer] Address [address] [facility] 7t [place] [address] Care Team Providers Care Page Designer Name Role Phone Unavailable Primary Care Provider Unavailabl e Encounter Details Date Type Department Care Team (Late st Contact Info) Description 11/07/2022 Abstract [facility] ADULT DENTAL [address] [place] [address] Boni Orta DDS [address] [place], [place] [phone] Social History Tobacco Use Types Packs/Day Years [...]
--- OUTSIDE RECORDS SUMMARY | 2025-08-05 10:14 | XMS_ITS | Encounter Summary ---
Author Organization [employer] Address [address] [facility] [address]t [place] [address] Care Team Providers Care Linotyper Name Role Phone Unavailable Primary Care Provider Unavailabl e Encounter Details Date Type Department Care Team (Late st Contact Info) Description 12/30/2022 Abstract [facility] ADULT DENTAL [address] [place] [address] Boni Orta DDS [address] [place] [address] Social History Tobacco Use Types Packs/Day Years [...]
== END 2025-08-05 09:45 | disposition home or self-care (01) ==
LOC: HO.HOS 09:14
PROVIDERS: PCP Nurse Practitioner Family; Visit Provider Orthopaedic Surgery
DX: Z98.890 Other specified postprocedural states (principal)
CPT/HCPCS: 99024

== ENCOUNTER → 2025-08-05 09:14 | Outpatient (BNVA) | payer OTHER, SELFPAY | PROVIDERS: PCP Nurse Practitioner Family; Visit Provider Orthopaedic Surgery | DX: Z48.02 Encounter for removal of sutures (principal); R20.0 Anesthesia of skin; Z98.890 Other specified postprocedural states | CPT/HCPCS: 99212 ==

== ENCOUNTER → 2025-08-07 12:49 | Outpatient (BNV) | payer OTHER, SELFPAY | PROVIDERS: PCP Nurse Practitioner Family; Visit Provider Radiology Diagnostic Radiology | DX: R51.9 Headache, unspecified (principal) | CPT/HCPCS: 70553 ==

== ENCOUNTER 2025-08-07 12:53 | Outpatient (REF) | payer OTHER, SELFPAY ==
--- NOTE | ~2025-08-07 | MR_ITS ---
EXAMINATION: MR BRAIN WITHOUT AND WITH CONTRAST CLINICAL INFORMATION: Headache, unspecified. 54-year-old female complaining of headaches x10 months to one year. Also feels lump on scalp . COMPARISON: None available. TECHNIQUE: Multiplanar, multisequence MRI of the brain was obtained before and after the intravenous administration of 10 mL Gadavist. Examination performed on a 1.5 Yashira Siemens high-field unit. FINDINGS: There is no diffusion restriction. There is no intracranial hemorrhage, acute infarction, mass effect, or edema. Ventricles, sulci, and cisterns are normal in size and configuration for patient age. No shift of midline. No abnormal hemosiderin deposition is identified. There are no focal white matter signal abnormalities. There is no abnormal intra or extra-axial enhancement after the administration of contrast. Midline structures appear normally formed. There is a partial empty sella present. Posterior fossa structures appear normal. Cerebellar tonsils are appropriately located. Major flow voids are preserved within the skull base. The globes and orbital contents demonstrate no abnormalities. Paranasal sinuses are clear bilaterally. The mastoids and tympanic cavities are normally aerated. Extracranial soft tissues demonstrate no abnormalities. No abnormality is evident to explain a lump on the scalp. No suspicious bone marrow changes are evident. Atlantoaxial joint demonstrates mild degenerative changes. MR/MR head/brain wo/w con IMPRESSION: 1. No evidence of intracranial hemorrhage, acute infarction, mass effect, edema, or abnormal contrast enhancement. Essentially normal MRI of the brain. Electronically signed by: Brett Funk MD 08/07/2025 01:56 PM EDT
--- OUTSIDE RECORDS SUMMARY | 2025-08-07 12:55 | XMS_ITS | Clinical Summary ---
Author Organization [employer] Address [address] [facility] 7t [place] [address] Care Team Providers Care Tile Grader Name Role Phone Unavailable Primary Care Provider [...] patient's age to complete this topic Insurance [facility] ST[facility] ADULT
--- OUTSIDE RECORDS SUMMARY | 2025-08-07 12:55 | XMS_ITS | Encounter Summary ---
Author Organization [employer] Address [address] [facility] 7t [place] [address] Care Team Providers Care Cell Geneticist Name Role Phone Unavailable Primary Care Provider Unavailabl e Encounter Details Date Type Department Care Team (Late st Contact Info) Description 12/30/2022 Abstract [facility] ADULT DENTAL [address] [place] [address] Boni Orta DDS [address] [place] [address] Social History Tobacco Use Types Packs/Day Years [...]
--- OUTSIDE RECORDS SUMMARY | 2025-08-07 12:55 | XMS_ITS | Encounter Summary ---
Author Organization [employer] Address [address] [facility] [address]t [place] [address] Care Team Providers Care Mine Surveyor Name Role Phone Unavailable Primary Care Provider Unavailabl e Encounter Details Date Type Department Care Team (Late st Contact Info) Description 12/30/2022 Abstract [facility] ADULT DENTAL [address] [place] [address] Boni Orta DDS [address] [place] [address] Social History Tobacco Use Types Packs/Day Years [...]
--- OUTSIDE RECORDS SUMMARY | 2025-08-07 12:55 | XMS_ITS | Clinical Summary ---
Author Organization [employer] [facility] it Address [address] [place] [address] Care Team Providers Care Drafter Electromechanical Name Role Phone Unavailable Primary Care Provider [...]
--- OUTSIDE RECORDS SUMMARY | 2025-08-07 12:55 | XMS_ITS | Encounter Summary ---
Author Organization [employer] Address [address] [facility] [address] [place] [address] Care Team Providers Care Bow Maker Machine Tender Name Role Phone Unavailable Primary Care Provider Unavailabl e Encounter Details Date Type Department Care Team (Late st Contact Info) Description 12/30/2022 Abstract [facility] ADULT DENTAL [address] [place] [address] Ketty Greene [address] [place] [address] Social History Tobacco Use Types Packs/Day Years [...]
--- OUTSIDE RECORDS SUMMARY | 2025-08-07 12:55 | XMS_ITS | Encounter Summary ---
Author Organization [employer] Address [address] [facility] [address]t [place] [address] Care Team Providers Care Headlight Adjuster Name Role Phone Unavailable Primary Care Provider Unavailabl e Encounter Details Date Type Department Care Team (Late st Contact Info) Description 12/30/2022 Abstract [facility] ADULT DENTAL [address] [place] [address] Boni Orta DDS [address] [place] [address] Social History Tobacco Use Types Packs/Day Years [...]
--- OUTSIDE RECORDS SUMMARY | 2025-08-07 12:55 | XMS_ITS | Encounter Summary ---
Author Organization [employer] Address [address] [facility] 7t [place] [address] Care Team Providers Care Coating Mixer Tender Name Role Phone Unavailable Primary Care Provider Unavailabl e Encounter Details Date Type Department Care Team (Late st Contact Info) Description 11/07/2022 Abstract [facility] ADULT DENTAL [address] [place] [address] Boni Orta DDS [address] [place], [place] [phone] Social History Tobacco Use Types Packs/Day Years [...]
--- OUTSIDE RECORDS SUMMARY | 2025-08-07 12:55 | XMS_ITS | Patient Health Record ---
Author Organization [facility] Address [address] [place] [address] Care Team Providers Care Tour Narrator Name Role Phone Nubia Duran Primary Care Provider Mynor Brewer Jr Unavailable [phone] Allergies No Known Allergies Reason For Referral No Information Medications Medication SIG (Take, Route, Frequency, Duration) Notes Start Date End Date Status MiraLax (colon prep) 17 GM/SCOOP mixed with Gatorade or Crystal Light Orally begin at 5:00 p.m. the day before the procedure; Duration: 1 day 04/20/2022 Active Immunizations Vaccine Route [...] Problem Status W/U Status Risk Notes Problem Rectal bleeding (90678581) Rectal bleeding (K62.5) Active confirmed Plan Of Treatment Future Test Test Name Order Date COLONOSCOPY 04/20/2022 Insurance Providers Payer Name Payer Address Payer Phone Subscriber Number Group Number Insured Name Patient Relationship to Insured Coverage Start Date Coverage End Date [facility] [address] [address] [place], [place] [id number] [phone] [id number] EMILY SHERIFF Self - patient is the insured Medical (General) History Medical History History ICD Code Denies DC,DM,CVA,Lung disease,renal dise ase Surgical History Surgery Date(Month/Year) Varicose vein surgery section tubal ligation
--- OUTSIDE RECORDS SUMMARY | 2025-08-07 12:55 | XMS_ITS | Encounter Summary ---
Author Organization [employer] Address [address] [facility] 7t [place] [address] Care Team Providers Care Central Lab Technician Name Role Phone Unavailable Primary Care Provider Unavailabl e Encounter Details Date Type Department Care Team (Latest Contact Info) Description 09/27/2022 Abstract [facility] CONVERSIONS Dental, Provider, DDS Social History Tobacco [...]
== END 2025-08-07 12:54 | disposition home or self-care (01) ==
LOC: HO.MRI 12:53
PROVIDERS: PCP Nurse Practitioner Family; Visit Provider Nurse Practitioner Family
DX: R51.9 Headache, unspecified (principal); R63.5 Abnormal weight gain; H53.8 Other visual disturbances
CPT/HCPCS: 70553; A9585

== ENCOUNTER 2025-08-29 10:56 | Outpatient (AMB) | payer OTHER, SELFPAY ==
--- NOTE | 2025-08-29 11:09 | A.OFFVIS_ITS ---
Intake Visit Reasons: Newprob-left shoulder pain Intake Note: Brittany is a 54 year old right hand dominant female who presents today as an established patient, new problem visit to evaluate left shoulder pain. Patient reports ongoing pain for 3 - 4 months. She states that he pain is on anterior aspect of the shoulder and it stays in that area. Patient finds it difficult to lift her arm when he pain is very bad. Patient has tried a topical cream with mild relief. Spinner Hand Required: Yes Spinner Hand Services: Spinner Hand Present ([id number]) Spinner Hand Name: Melissa ID#[id number] Allergies No Known Allergies Allergy (Verified 08/29/25 11:11) Medication List - Last Reconciled 08/29/25 by Tamra Hackett PA-C acetaminophen (Tylenol Extra Strength) 1,000 mg (2 x 500 mg) PO Q6H PRN 30 days MDD 3,000 mg ascorbic acid (vitamin C) 500 mg PO DAILY 30 days bupropion HCl XL 150 mg PO DAILY cane As directed celecoxib (Celebrex) 200 mg PO BID 30 days clonidine HCl 0.1 mg PO .QD 90 days escitalopram oxalate 15 mg PO DAILY escitalopram oxalate 5 mg PO DAILY ferrous gluconate 324 mg PO DAILY 90 days [Handheld Shower Hose Adjustable handheld shower hose to use daily as needed for showering/bathing] magnesium oxide 400 mg PO BEDTIME 90 days multivitamin 1 tab PO DAILY riboflavin (vitamin B2) 400 mg PO DAILY 90 days HPI HPI Newprob-left shoulder pain: Details: 54-year-old female presents to the office today for pain in the left shoulder. She has been experiencing pain in the left shoulder for several months which has been limiting her ability to perform daily activities such as reaching overhead. She does not have pain at night. She states the pain does come and go. She has had no treatment to date left shoulder. [facility] Medical History Abnormal uterine bleeding Carpal tunnel syndrome on both sides Obesity (BMI 35.0-39.9 without comorbidity) External hemorrhoids Lower back pain Anxiety Intermittent palpitations Encounter to establish care Surgical History History of colonoscopy (~2021) Hx of section Hx of tubal ligation Family History Paternal Grandmother Esophageal cancer Son FH: mental illness Substance use disorder Social History Housing: House Alcohol intake: never Patient Tobacco Use Status: Former Tobacco user Tobacco use type: Cigarette Years Smoked: Infrequent e-Cigarette/Vaping Use: Never Used Second Hand Smoke Exposure: No service: No Current occupational status: employed 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 Negative Alaniz. She has good strength with rotator cuff testing. Neurovascularly intact. Results Reviewed Results Reviewed: X-rays of the left shoulder obtained in the office today and reviewed by me show AC joint arthritis Assessment & Plan Assessment & Plan (1) Arthritis of left acromioclavicular joint: Code(s): M19.012 - Primary osteoarthritis, left shoulder Category: Medical Plan: I discussed options with the patient which includes physical therapy and steroid injections. Because her pain is not constant we will hold off on injections at this time. I did place an order for physical therapy and she will contact them to make an appointment. If her symptoms persist or worsen over the next 6-8 weeks she can contact me and I will set her up for an intra-articular AC joint injection to be performed at the hospital. The patient is content with this plan. Orders: Orders XR shoulder LT min 2V Today M25.512 - Pain in left shoulder Coding Level of Care Code Est Pt Level 3 (31035) Complex EM visit Add On G2211 Diagnoses Arthritis of left acromioclavicular joint M19.012
--- OUTSIDE RECORDS SUMMARY | 2025-08-29 12:27 | XMS_ITS | Patient Health Record ---
Author Organization [facility] Address [address] [place] [address] Care Team Providers Care Filler Shaker Name Role Phone Nubia Duran Primary Care [...] W/U Status Risk Notes Problem Rectal bleeding (11341805) Rectal bleeding (K62.5) Active confirmed Plan Of Treatment Future Test Test Name Order Date COLONOSCOPY 04/20/2022 Insurance Providers Payer Name Payer Address Payer Phone Subscriber Number Group Number Insured Name Patient Relationship to Insured Coverage Start Date [facility]age End Date [facility] [address] [address] [place], [place] [phone] [id number] EMILY SHERIFF Self - patient is the insured Medical (General) History Medical History History ICD Code Denies HI,DM,CVA,Lung disease,renal dise ase Surgical History Surgery Date(Month/Year) Varicose vein surgery section tubal ligation
--- OUTSIDE RECORDS SUMMARY | 2025-08-29 12:27 | XMS_ITS | Clinical Summary ---
Author Organization [facility] it Address [address] [place] [address] Care Team Providers Care Home Support Worker Name Role Phone Unavailable Primary Care [...]
--- OUTSIDE RECORDS SUMMARY | 2025-08-29 12:27 | XMS_ITS | Encounter Summary ---
Author Organization [employer] Address [address] [facility] 7t [place] [address] Care Team Providers Care Manager Valuation Name Role Phone Unavailable Primary Care Provider Unavailabl e Encounter Details Date Type Department Care Team (Late st Contact Info) Description 11/07/2022 Abstract [facility] ADULT DENTAL [address] [place] [address] Boni Orta DDS [address] [place], [place] [phone] Social History Tobacco Use Types Packs/Day Years [...]
--- OUTSIDE RECORDS SUMMARY | 2025-08-29 12:27 | XMS_ITS | Encounter Summary ---
Author Organization [employer] Address [address] [facility] [address] [place] [address] Care Team Providers Care Social Media Community Manager Name Role Phone Unavailable Primary Care Provider Unavailabl e Encounter Details Date Type Department Care Team (Late st Contact Info) Description 12/30/[address] [facility] ADULT DENTAL [address] [place] [address] Boni Orta DDS [address] [place] [address] Social History Tobacco Use Types Packs/Day Years [...]
--- OUTSIDE RECORDS SUMMARY | 2025-08-29 12:27 | XMS_ITS | Clinical Summary ---
Author Organization [employer] Address [address] [facility] 7t [place] [address] Care Team Providers Care Head Cleaning Porter Name Role Phone Unavailable Primary Care Provider [...] patient's age to complete this topic Insurance [facility] STAND ADULT
--- OUTSIDE RECORDS SUMMARY | 2025-08-29 12:27 | XMS_ITS | Encounter Summary ---
Author Organization [employer] Address [address] [facility] 7t [place] [address] Care Team Providers Care Ball Shagger Name Role Phone Unavailable Primary Care Provider Unavailabl e Encounter Details Date Type Department Care Team (Late st Contact Info) Description 12/30/2022 Abstract [facility] ADULT DENTAL [address] [place] [address] Boni Orta DDS [address] [place] [address] Social History Tobacco Use Types Packs/Day Years [...]
--- OUTSIDE RECORDS SUMMARY | 2025-08-29 12:27 | XMS_ITS | Encounter Summary ---
Author Organization [employer] Address [address] [facility] 7t [place] [address] Care Team Providers Care Nut Tightener Name Role Phone Unavailable Primary Care Provider Unavailabl e Encounter Details Date Type Department Care Team (Late st Contact Info) Description 12/30/2022 Abstract [facility] ADULT DENTAL [address] [place] [address] Ketty Greene [address] [place] [address] Social History Tobacco Use Types Packs/Day Years [...]
--- OUTSIDE RECORDS SUMMARY | 2025-08-29 12:27 | XMS_ITS | Encounter Summary ---
Author Organization [employer] Address [address] [facility] 7t [place] [address] Care Team Providers Care Administrative Sales Assistant Name Role Phone Unavailable Primary Care Provider Unavailabl e Encounter Details Date Type Department Care Team (Late st Contact Info) Description 12/30/2022 Abstract [facility] ADULT DENTAL [address] [place] [address] Boni Orta DDS [address] [place] [address] Social History Tobacco Use Types Packs/Day Years [...]
--- OUTSIDE RECORDS SUMMARY | 2025-08-29 12:27 | XMS_ITS | Encounter Summary ---
Author Organization [employer] Address [address] [facility] [address]t [place] [address] Care Team Providers Care Aids Nurse Name Role Phone Unavailable Primary Care Provider Unavailabl e Encounter Details Date Type Department Care Team (Latest Contact Info) Description 09/27/2022 Abstract [facility] CONVERSIONS Dental, Provider, DDS Social [...]
== END 2025-08-29 12:01 | disposition home or self-care (01) ==
LOC: HO.HOS 10:57
PROVIDERS: PCP Nurse Practitioner Family; Visit Provider Physician Assistant
DX: M19.012 Primary osteoarthritis, left shoulder (principal)
CPT/HCPCS: 99213

== ENCOUNTER 2025-08-29 10:56 | Outpatient (REF) | payer OTHER, SELFPAY ==
--- NOTE | ~2025-08-29 | XR_ITS ---
EXAMINATION: XR SHOULDER, LEFT CLINICAL INFORMATION: M25.512 - Pain in left shoulder COMPARISON: None available. TECHNIQUE: AP external rotation, Grashey, scapular Y, and axillary views of the left shoulder. FINDINGS: No acute cortical disruption or malalignment. Degenerative changes in the acromioclavicular joint. No soft tissue calcifications. No lytic or blastic lesions. XR/XR shoulder LT min 2V IMPRESSION: Degenerative changes in the common clavicular joint. Electronically signed by: Oliver Dowling MD 08/29/2025 12:05 PM EDT
== END 2025-08-29 10:57 | disposition home or self-care (01) ==
LOC: HO.HOSX 10:56
PROVIDERS: PCP Nurse Practitioner Family; Visit Provider Physician Assistant
DX: M19.012 Primary osteoarthritis, left shoulder (principal)
CPT/HCPCS: 73030; 99212

== ENCOUNTER → 2025-08-29 11:27 | Outpatient (BNV) | payer OTHER, SELFPAY | PROVIDERS: PCP Nurse Practitioner Family; Visit Provider Radiology Diagnostic Radiology | DX: M25.512 Pain in left shoulder (principal) | CPT/HCPCS: 73030 ==

== ENCOUNTER 2025-09-03 09:53 | Outpatient (AMB) | payer OTHER, SELFPAY ==
--- NOTE | 2025-09-03 10:00 | MHC.OFFVIS ---
Vital Signs 09/03/25 10:06 Height 5 ft 3 in Weight 213 lb BMI 37.7 Intake Visit Reasons: PO RT CTR 07/21/25 AR- s/p OT Intake Note: Brittany is a 54 year old right hand dominant female who presents today for a post operative visit status post right carpal tunnel release, DOS: 07/21/[address] Maria Alejandra Tang. At her last visit on 08/05/2025 Dr Maria Alejandra Tang ordered occupational therapy to work on range of motion and strengthening of the right wrist and hand. Today patient states she hasn't completed occupational therapy. States she is doing better and did not felt it was necessary. States she is doing a lot better. Solar Lab Technician Name: [id number] Allergies No Known Allergies Allergy (Verified 09/03/25 10:15) HPI HPI PO RT CTR 07/21/25 AR- s/p OT: Details: Brittany is a 54 year old right hand dominant female who presents today for a post operative visit status post right carpal tunnel release, DOS: 07/21/[address] Maria Alejandra Tang. At her last visit on 08/05/2025 Dr Maria Alejandra Tang ordered occupational therapy to work on range of motion and strengthening of the right wrist and hand. Today patient states she hasn't completed occupational therapy. States she is doing better and did not felt it was necessary. States she is doing a lot better. No ongoing numbness or tingling. No pain. [facility] Medical History Abnormal uterine bleeding Carpal tunnel syndrome on both sides Obesity (BMI 35.0-39.9 without comorbidity) External hemorrhoids Lower back pain Anxiety Intermittent palpitations Encounter to establish care Surgical History History of colonoscopy (~2021) Hx of section Hx of tubal ligation Family History Paternal Grandmother Esophageal cancer Son FH: mental illness Substance use disorder Social History Housing: House Alcohol intake: never Patient Tobacco Use Status: Former Tobacco user Tobacco use type: Cigarette Years Smoked: Infrequent e-Cigarette/Vaping Use: Never Used Second Hand Smoke Exposure: No service: No Current occupational status: employed 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 Sutures intact. No erythema or drainage. No signs of infection. Able to make a closed fist and extend all digits. Reports no further numbness. Capillary refill is brisk. Radial pulse intact. Psych Appearance: grossly normal Mental Status: mental status grossly normal Attitude: cooperative Assessment & Plan Assessment & Plan (1) Carpal tunnel syndrome of right wrist: Code(s): G56.01 - Carpal tunnel syndrome, right upper limb Category: Medical Plan 1. Status post right carpal tunnel release DOS 07/21/2025 With good symptomatic resolution postoperatively Patient appears to be recovering well postoperatively Patient is educated about the typical recovery course Patient appears to be recovering very well, and requires no further acute follow-up with us postoperatively Patient is educated and worrisome signs and symptoms, and should call us if they experience any of these, including but not limited to redness, swelling, increased pain, and discharge Patient understands this and is amenable to this plan Coding Level of Care Code Global (94392) Diagnoses Carpal tunnel syndrome of right wrist G56.01
[2025-09-03 10:06] VITALS: BMI 37.7
--- OUTSIDE RECORDS SUMMARY | 2025-09-03 11:16 | XMS_ITS | Patient Health Record ---
Author Organization [facility] Address [address] [place] [address] Care Team Providers Care Patient Support Associate Name Role Phone Nubia Duran Primary Care Provider Mynor Brewer Jr Unavailable [phone] Allergies No Known Allergies Reason For Referral [...] W/U Status Risk Notes Problem Rectal bleeding (86199283) Rectal bleeding (K62.5) Active confirmed Plan Of Treatment Future Test Test Name Order Date COLONOSCOPY 04/20/2022 Insurance Providers Payer Name Payer Address Payer Phone Subscriber Number Group Number Insured Name Patient Relationship to Insured Coverage Start Date Coverage End Date [facility] [address] [address] [place], [place] [phone] [id number] EMILY SHERIFF Self - patient is the insured Medical (General) History Medical History History ICD Code Denies AL,DM,CVA,Lung disease,renal dise ase Surgical History Surgery Date(Month/Year) Varicose vein surgery section tubal ligation
--- OUTSIDE RECORDS SUMMARY | 2025-09-03 11:16 | XMS_ITS | Clinical Summary ---
Author Organization [facility] it Address [address] [place] [address] Care Team Providers Care Cleaning Matron Name Role Phone Unavailable Primary Care Provider [...]
--- OUTSIDE RECORDS SUMMARY | 2025-09-03 11:16 | XMS_ITS | Encounter Summary ---
Author Organization [employer] Address [address] [facility] 7t [place] [address] Care Team Providers Care Operations Officer Name Role Phone Unavailable Primary Care Provider Unavailabl e Encounter Details Date Type Department Care Team (Late st Contact Info) Description 12/30/2022 Abstract [facility] ADULT DENTAL [address] [place] [address] Ketty Greene [address] [place] [address] Social History Tobacco Use Types Packs/Day Years [...]
--- OUTSIDE RECORDS SUMMARY | 2025-09-03 11:16 | XMS_ITS | Clinical Summary ---
Author Organization [employer] Address [address] [facility] 7t [place] [address] Care Team Providers Care Gauger Chief Delivery Name Role Phone Unavailable Primary Care Provider [...] patient's age to complete this topic Insurance [facility] STAND ADULT
--- OUTSIDE RECORDS SUMMARY | 2025-09-03 11:16 | XMS_ITS | Encounter Summary ---
Author Organization [employer] Address [address] [facility] 7t [place] [address] Care Team Providers Care Process Equipment Operator Name Role Phone Unavailable Primary Care Provider Unavailabl e Encounter Details Date Type Department Care Team (Late st Contact Info) Description 12/30/2022 Abstract [facility] ADULT DENTAL [address] [place] [address] Boni Orta DDS [address] [place] [address] Social History Tobacco Use Types Packs/Day Years [...]
--- OUTSIDE RECORDS SUMMARY | 2025-09-03 11:16 | XMS_ITS | Encounter Summary ---
Author Organization [employer] Address [address] [facility] 7t [place] [address] Care Team Providers Care Watch Leader Name Role Phone Unavailable Primary Care Provider Unavailabl e Encounter Details Date Type Department Care Team (Late st Contact Info) Description 12/30/2022 Abstract [facility] ADULT DENTAL [address] [place] [address] Boni Orta DDS [address] [place] [address] Social History Tobacco Use Types Packs/Day Years [...]
--- OUTSIDE RECORDS SUMMARY | 2025-09-03 11:16 | XMS_ITS | Encounter Summary ---
Author Organization [employer] Address [address] [facility] 7t [place] [address] Care Team Providers Care Employee Benefits Insurance Agent Name Role Phone Unavailable Primary Care Provider Unavailabl e Encounter Details Date Type Department Care Team (Late st Contact Info) Description 12/30/2022 Abstract [facility] ADULT DENTAL [address] [place] [address] Boni Orta DDS [address] [place] [address] Social History Tobacco Use Types Packs/Day Years [...]
--- OUTSIDE RECORDS SUMMARY | 2025-09-03 11:16 | XMS_ITS | Encounter Summary ---
Author Organization [employer] Address [address] [facility] 7t [place] [address] Care Team Providers Care Instructor Warper Name Role Phone Unavailable Primary Care Provider Unavailabl e Encounter Details Date Type Department Care Team (Latest Contact Info) Description 09/27/2022 Abstract [facility] CONVERSIONS Dental, Provider, DDS Social History [...]
--- OUTSIDE RECORDS SUMMARY | 2025-09-03 11:16 | XMS_ITS | Encounter Summary ---
Author Organization [employer] Address [address] [facility] 7t [place] [address] Care Team Providers Care Second Facing Baster Name Role Phone Unavailable Primary Care Provider Unavailabl e Encounter Details Date Type Department Care Team (Late st Contact Info) Description 11/07/2022 Abstract [facility] ADULT DENTAL [address] [place] [address] Boni Orta DDS [address] [place], [place] [id number] Social History Tobacco Use Types Packs/Day Years [...]
== END 2025-09-03 10:49 | disposition home or self-care (01) ==
LOC: HO.HOS 09:54
PROVIDERS: PCP Nurse Practitioner Family
DX: G56.01 Carpal tunnel syndrome, right upper limb (principal)
CPT/HCPCS: 99024

== ENCOUNTER → 2025-09-03 09:53 | Outpatient (BNVA) | payer OTHER, SELFPAY | PROVIDERS: PCP Nurse Practitioner Family | DX: Z47.89 Encounter for other orthopedic aftercare (principal); G56.01 Carpal tunnel syndrome, right upper limb | CPT/HCPCS: 99212 ==

== ENCOUNTER 2025-10-08 14:56 | Outpatient (AMB) | payer OTHER, SELFPAY ==
--- NOTE | 2025-10-08 15:15 | A.OFFVIS_ITS ---
Vital Signs 10/08/25 15:35 Height 5 ft 3 in Weight 213 lb BMI 37.7 Intake Visit Reasons: OV- Right knee inj only Intake Note: Brittany is a 54 year old female who presents today for a right knee injection. She was last seen for her right knee about 1 year ago where she declined an injection. Patient reports ongoing pain that has been getting worse. She would like to proceed with a cortisone injection. Credit Collection Specialist Required: Yes Credit Collection Specialist Services: Credit Collection Specialist Present Credit Collection Specialist Name: Paola ID#[id number] Allergies No Known Allergies Allergy (Verified 10/08/25 15:35) Medication List - Last Reconciled 10/08/25 by Tamra Hackett PA-C acetaminophen (Tylenol Extra Strength) 1,000 mg (2 x 500 mg) PO Q6H PRN 30 days MDD 3,000 mg ascorbic acid (vitamin C) 500 mg PO DAILY 30 days cane As directed celecoxib (Celebrex) 200 mg PO BID 30 days clonidine HCl 0.1 mg PO .QD 90 days escitalopram oxalate 15 mg PO DAILY escitalopram oxalate 5 mg PO DAILY ferrous gluconate 324 mg PO DAILY 90 days [Handheld Shower Hose Adjustable handheld shower hose to use daily as needed for showering/bathing] magnesium oxide 400 mg PO BEDTIME 90 days multivitamin 1 tab PO DAILY riboflavin (vitamin B2) 400 mg PO DAILY 90 days HPI HPI OV- Right knee inj only: Details: 54-year-old female returns to the office today for right knee pain. I had seen her in the past for her right knee and send her to physical therapy and had her try anti-inflammatories. She states this was somewhat helpful but she continues to have discomfort with daily activities especially going up and downstairs and prolonged standing. [facility] Medical History Abnormal uterine bleeding Carpal tunnel syndrome on both sides Obesity (BMI 35.0-39.9 without comorbidity) External hemorrhoids Lower back pain Anxiety Intermittent palpitations Encounter to establish care Surgical History History of colonoscopy (~2021) Hx of section Hx of tubal ligation Family History Paternal Grandmother Esophageal cancer Son FH: mental illness Substance use disorder Social History Housing: House Alcohol intake: never Patient Tobacco Use Status: Former Tobacco user Tobacco use type: Cigarette Years Smoked: Infrequent e-Cigarette/Vaping Use: Never Used Second Hand Smoke Exposure: No service: No Current occupational status: employed 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 Lateral retropatellar tenderness present. Full ROM with crepitus. Negative Shahida?s. No ligamentous laxity. NVI. Office Procedures AMB Joint Injection/Aspiration Joint Injection/Aspiration Primary Site: Right Knee Prep: site was prepped using aseptic technique, ethochloride spray was applied and injection warnings given Injected: 40 mg of, Decadron, with 3 mL of, 1% plain Lidocaine, 0.25% Bupivacaine and in the joint Approach Used: anterolateral Procedure: The patient tolerated the procedure well and there was some relief with the local anesthesia Coding 33940 - Glenohumeral/Tronchanteric Bursa/Intraarticular Procedure code (CPT) selection complete Assessment & Plan Assessment & Plan (1) Arthritis of right knee: Code(s): M17.11 - Unilateral primary osteoarthritis, right knee Category: Medical Plan: We discussed options today, which include steroid injection. The patient did consent to move forward with the injection, which was tolerated well.? I recommended rest, ice and elevation and OTC antiinflammatories prn for discomfort. If symptoms persist over the next 6-8 weeks, they will contact our office, otherwise, prn Orders: Orders XR knee RT 3V Today M17.11 - Unilateral primary osteoarthritis, right knee Coding Level of Care Code Est Pt Level 3 (21006) Add On Problem Visit Only Diagnoses Arthritis of right knee M17.11 CPT Codes Coding - Joint 7: 34016 - Glenohumeral/Tronchanteric Bursa/Intraarticular ([id number])
[2025-10-08 15:35] VITALS: BMI 37.7
--- OUTSIDE RECORDS SUMMARY | 2025-10-08 23:29 | XMS_ITS | Encounter Summary ---
Author Organization [employer] Address [address] [facility] [address]t [place] [address] Care Team Providers Care Milling Machine Set Up Operator Name Role Phone Unavailable Primary Care Provider Unavailabl e Encounter Details Date Type Department Care Team (Late st Contact Info) Description 12/30/2022 Abstract [facility] ADULT DENTAL [address] [place] [address] Ketty Greene [address] [place] [address] Social History Tobacco Use Types Packs/Day Years [...]
--- OUTSIDE RECORDS SUMMARY | 2025-10-08 23:29 | XMS_ITS | Encounter Summary ---
Author Organization [employer] Address [address] [facility] [address] [place] [address] Care Team Providers Care Perfume Maker Name Role Phone Unavailable Primary Care Provider Unavailabl e Encounter Details Date Type Department Care Team (Late st Contact Info) Description 12/30/[address] [facility] ADULT DENTAL [address] [place] [address] Boni Orta DDS [address] [place] [address] Social History Tobacco Use Types Packs/Day Years [...]
--- OUTSIDE RECORDS SUMMARY | 2025-10-08 23:29 | XMS_ITS | Encounter Summary ---
Author Organization [employer] Address [address] [facility] [address] [place] [address] Care Team Providers Care Vacuum System Tester Name Role Phone Unavailable Primary Care Provider Unavailabl e Encounter Details Date Type Department Care Team (Latest Contact Info) Description 09/27/2022 Abstract [facility] CONVERSIONS Dental, Provider, DDS Social [...]
--- OUTSIDE RECORDS SUMMARY | 2025-10-08 23:29 | XMS_ITS | Encounter Summary ---
Author Organization [employer] Address [address] [facility] 7t [place] [address] Care Team Providers Care Tool Shaper Set Up Operator Name Role Phone Unavailable Primary Care Provider Unavailabl e Encounter Details Date Type Department Care Team (Late st Contact Info) Description 12/30/2022 Abstract [facility] ADULT DENTAL [address] [place] [address] Boni Orta DDS [address] [place] [address] Social History Tobacco Use Types Packs/Day Years [...]
--- OUTSIDE RECORDS SUMMARY | 2025-10-08 23:29 | XMS_ITS | Encounter Summary ---
Author Organization [employer] Address [address] [facility] [address]t [place] [address] Care Team Providers Care Supervisor Cap And Hat Production Name Role Phone Unavailable Primary Care Provider Unavailabl e Encounter Details Date Type Department Care Team (Late st Contact Info) Description 12/30/2022 Abstract [facility] ADULT DENTAL [address] [place] [address] Boni Orta DDS [address] [place] [address] Social History Tobacco Use Types Packs/Day Years [...]
--- OUTSIDE RECORDS SUMMARY | 2025-10-08 23:29 | XMS_ITS | Encounter Summary ---
Author Organization [employer] Address [address] [facility] [address] [place] [address] Care Team Providers Care Retail Management Keyholder Name Role Phone Unavailable Primary Care Provider Unavailabl e Encounter Details Date Type Department Care Team (Late st Contact Info) Description 11/07/2022 Abstract [facility] ADULT DENTAL [address] [place] [address] Boni Orat DDS [address] [place] [address] Social History Tobacco Use Types Packs/Day Years [...]
--- OUTSIDE RECORDS SUMMARY | 2025-10-08 23:29 | XMS_ITS | Clinical Summary ---
Author Organization [facility] it Address [address] [place] [address] Care Team Providers Care Public Relations Associate Name Role Phone Unavailable Primary Care Provider [...] Screening 11/24/2023 Depression Screening 10/30/2024 COVID-19 Vaccine (1 - 2024-2 6 season) 2025 Influenza Vaccine (#1) 2025 RSV [...]
--- OUTSIDE RECORDS SUMMARY | 2025-10-08 23:30 | XMS_ITS | Patient Health Record ---
Author Organization [facility] Address [address] [place] [address] Care Team Providers Care Quarter Lining Smoother Name Role Phone Nubia Duran Primary Care Provider Mynor Brewer Jr Unavailable Allergies No Known Allergies Reason For Referral No Information Medications Medication SIG (Take, Route, Frequency, Duration) Notes Start Date End Date Status MiraLax (colon prep) 17 GM/SCOOP Powder mixed with Gatorade or Crystal Light Orally begin at 5:00 p.m. the day before the procedure; Duration: 1 day 04/20/2022 Active Immunizations Vaccine Route Administration Date Status Comme nts Influenza Unknown 04/20/2022 Refused Social History Tobacco Use: Social History Observation Description Date Details (start date - stop date) Never Smoker NA - NA Social History Drugs/Alcohol: Social Info Question Answer Notes Alcohol Screen Did you have a drink containing alcohol in the past year? 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 Problems Problem Type SNOMED Code ICD Code Onset Dates Problem Status W/U Status Risk Notes Problem Rectal bleeding (65825591) Rectal bleeding (K62.5) Active confirmed Plan Of Treatment Future Test Test Name Order Date COLONOSCOPY 04/20/2022 Insurance Providers Payer Name Payer Address Payer Phone Subscriber Number Group Number Insured Name Patient Relationship to Insured Coverage Start Date Coverage End Date [facility] [address] [address] [place], [place] [id number] EMILY SHERIFF Self - patient is the insured Medical (General) History Medical History History ICD Code Denies [place],DM,CVA,Lung disease,renal dise ase Surgical History Surgery Date(Month/Year) Varicose vein surgery section tubal ligation
--- OUTSIDE RECORDS SUMMARY | 2025-10-08 23:30 | XMS_ITS | Clinical Summary ---
Author Organization [employer] Address [address] [facility] [address] [place] [address] Care Team Providers Care Counselor Nurses' Association Name Role Phone Unavailable Primary Care Provider [...]
== END 2025-10-08 16:28 | disposition home or self-care (01) ==
LOC: HO.HOS 14:58
PROVIDERS: PCP Nurse Practitioner Family; Visit Provider Physician Assistant
DX: M17.11 Unilateral primary osteoarthritis, right knee (principal)
CPT/HCPCS: 20610

== ENCOUNTER → 2025-10-08 14:59 | Outpatient (BNV) | payer OTHER, SELFPAY | PROVIDERS: Visit Provider Radiology Diagnostic Radiology | DX: M17.11 Unilateral primary osteoarthritis, right knee (principal) | CPT/HCPCS: 73562 ==

== ENCOUNTER 2025-10-08 15:09 | Outpatient (REF) | payer OTHER, SELFPAY ==
--- NOTE | ~2025-10-08 | XR_ITS ---
EXAMINATION: XR KNEE 3 VIEWS RIGHT HISTORY: M17.11 - Unilateral primary osteoarthritis, right knee COMPARISON: Comparison is made with the prior examination dated 09/19/2024. FINDINGS: Standing AP views of both knees and additional lateral and sunrise patellar views of the right knee are submitted. Osseous mineralization is normal. There is no fracture or dislocation. There is mild narrowing of the patellofemoral compartment. The soft tissues are unremarkable. There is no joint effusion. XR/XR knee RT 3V IMPRESSION: Mild narrowing of the patellofemoral compartment. Electronically signed by: Enzo Devi MD 10/08/2025 03:16 PM [facility] [place]
--- OUTSIDE RECORDS SUMMARY | 2025-10-09 22:41 | XMS_ITS | Encounter Summary ---
Author Organization [employer] Address [address] [facility] [address] [place] [address] Care Team Providers Care Electrocardiograph Technician Name Role Phone Unavailable Primary Care Provider Unavailabl e Encounter Details Date Type Department Care Team (Late st Contact Info) Description 11/07/2022 Abstract [facility] ADULT DENTAL [address] [place] [address] Boni Orta DDS [address] [place] [address] Social History Tobacco Use Types Packs/Day Years [...]
--- OUTSIDE RECORDS SUMMARY | 2025-10-09 22:41 | XMS_ITS | Clinical Summary ---
Author Organization [employer] Address [address] [facility] [address] [place] [address] Care Team Providers Care Maritime Guard Name Role Phone Unavailable Primary Care Provider [...]
--- OUTSIDE RECORDS SUMMARY | 2025-10-09 22:41 | XMS_ITS | Patient Health Record ---
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 Problems Problem Type SNOMED Code ICD Code Onset Dates Problem Status W/U Status Risk Notes Problem Rectal bleeding (34855861) Rectal bleeding (K62.5) Active confirmed Plan Of Treatment Future Test Test Name Order Date COLONOSCOPY 04/20/2022 Insurance Providers Payer Name Payer Address Payer Phone Subscriber Number Group Number Insured Name Patient Relationship to Insured Coverage Start Date Coverage End Date [facility] [address] [address] [place], [place] [id number] EMILY SHERIFF Self - patient is the insured Medical (General) History Medical History History ICD Code Denies NC,DM,CVA,Lung disease,renal dise ase Surgical History Surgery Date(Month/Year) Varicose vein surgery section tubal ligation
--- OUTSIDE RECORDS SUMMARY | 2025-10-09 22:41 | XMS_ITS | Encounter Summary ---
Author Organization [employer] Address [address] [facility] [address] [place] [address] Care Team Providers Care Outlet Manager Name Role Phone Unavailable Primary Care Provider Unavailabl e Encounter Details Date Type Department Care Team (Late st Contact Info) Description 12/30/2022 Abstract [facility] ADULT DENTAL [address] [place] [address] Boni Orta DDS [address] [place] [address] Social History Tobacco Use Types Packs/Day Years [...]
--- OUTSIDE RECORDS SUMMARY | 2025-10-09 22:41 | XMS_ITS | Encounter Summary ---
Author Organization [employer] Address [address] [facility] [address] [place] [address] Care Team Providers Care Monkey Breeder Name Role Phone Unavailable Primary Care Provider Unavailabl e Encounter Details Date Type Department Care Team (Latest Contact Info) Description 09/27/2022 Abstract [facility] CONVERSION[facility] Dental, Provider, DDS Social History [...]
--- OUTSIDE RECORDS SUMMARY | 2025-10-09 22:41 | XMS_ITS | Encounter Summary ---
Author Organization [facility] Address [address] [facility] [address] [place] [address] Care Team Providers Care Cellophane Worker Name Role Phone Unavailable Primary Care Provider Unavailabl e Encounter Details Date Type Department Care Team (Late st Contact Info) Description 12/30/2022 Abstract [facility] ADULT DENTAL [address] [place] [address] Boni Orta DDS [address] [place] [address] Social History Tobacco Use Types Packs/Day Years [...]
--- OUTSIDE RECORDS SUMMARY | 2025-10-09 22:41 | XMS_ITS | Clinical Summary ---
Author Organization [employer] [facility] it Address [address] [place] [address] Care Team Providers Care Track Inspecting Supervisor Name Role Phone Unavailable Primary Care [...]
--- OUTSIDE RECORDS SUMMARY | 2025-10-09 22:41 | XMS_ITS | Encounter Summary ---
Author Organization [employer] Address [address] [facility] [address] [place] [address] Care Team Providers Care Outside Sales Consultant Name Role Phone Unavailable Primary Care Provider Unavailabl e Encounter Details Date Type Department Care Team (Late st Contact Info) Description 12/30/2022 Abstract [facility] ADULT DENTAL [address] [place] [address] Boni Orta DDS [address] [place] [address] Social History Tobacco Use Types Packs/Day Years [...]
--- OUTSIDE RECORDS SUMMARY | 2025-10-09 22:41 | XMS_ITS | Encounter Summary ---
Author Organization [employer] Address [address] [facility] [address] [place] [address] Care Team Providers Care Can Filler Name Role Phone Unavailable Primary Care Provider Unavailabl e Encounter Details Date Type Department Care Team (Late st Contact Info) Description 12/30/2022 Abstract [facility] ADULT DENTAL [address] [place] [address] Ketty Greene [address] [place] [address] Social History Tobacco Use Types Packs/Day Years [...]
== END 2025-10-08 15:10 ==
LOC: HO.HOSX 15:09
PROVIDERS: Visit Provider Physician Assistant
DX: M17.11 Unilateral primary osteoarthritis, right knee (principal)
CPT/HCPCS: 73562